=== PATIENT | male | born 1935 | race Caucasian/White ===

== ENCOUNTER 2017-07-02 14:26 | Inpatient (IN) | payer MEDICARE, OTHER ==
[~2017-07-02] VITALS: Ht 177.8 cm; Wt 108.5 kg
[~2017-07-02 14:26] MED LIST changes: -ALBU2.5V5 INH; -ALBU90OI INH; -ASMANEX220 MC1 INH; -ATOR80 PO; -Advair Hfa 115-12 GM INH; -CHOL10002 PO; -Duoneb 2.5-0.5 M3 ML INH; -ESCI10 PO; -HYDR1TAB94 PO; -INS70/30I SC; -ISOMON20 PO; -Invanz1 GM IV; -LOSA25 PO; -METO25ER PO; -NITR.4SL SL; -Ocuvite Lutein1 EACH PO; -Omeprazole20 M1 PO; -POTCHL10ER PO; -PRED10 PO; -TORSE20 PO; -TRAZ50 PO; -XARELTO15 MG PO
[2017-07-02 15:28] LABS: Hematocrit 33.1 % (37.0-53.0); Hemoglobin 10.7 g/dL (13.5-17.5); Mean Corpuscular HGB 28.2 pg (26.0-34.0); Mean Corpuscular HGB Conc 32.3 g/dL (31.5-36.5); Mean Corpuscular Volume 87 fL (80-100); Mean Platelet Volume 8.8 fL (9.1-12.4); Platelet Count 110 K/mm3 (150-400); RDW Coefficient Variation 15.2 % (11.7-14.2); RDW Standard Deviation 48.4 fL (35.1-46.3); White Blood Cell Count 3.92 K/mm3 (4.00-11.30)
[2017-07-02 15:42] LABS: International Normalized Ratio 1.18; Prothrombin Time Results 12.3 Sec (9.7-11.5)
[2017-07-02 15:50] LABS: Magnesium, Blood 2.2 mg/dL (1.6-2.4); Troponin I <0.015 ng/mL (0.000-0.040)
[2017-07-02 15:55] LABS: Alanine Aminotransfer (ALT/SGP 20 U/L (12-78); Albumin, Blood 3.7 g/dL (3.4-5.0); Albumin/Globulin Ratio 1.1 (0.8-1.8); Alk Phos 81 U/L (50-136); Anion Gap 5 mmol/L (6-16); Aspartate Aminotrans (AST/SGOT 15 U/L (12-37); Bilirubin, Total 0.8 mg/dL (0.1-1.0); Blood Urea Nitrogen 17 mg/dL (8-24); Bun/Creatinine Ratio 16.2 (12.0-20.0); CO2, Blood 31 mmol/L (21-32); Calcium, Blood 8.9 mg/dL (8.5-10.1); Chloride, Blood 103 mmol/L (98-108); Creatinine, Blood 1.05 mg/dL (0.60-1.20); Globulin, Blood 3.3 g/dL (2.2-4.0); Glomerular Filtration Rate >60 (60-); Glucose, Blood 211 mg/dL (70-99); Sodium, Blood 139 mmol/L (136-145)
[2017-07-02 16:26] LABS: BASOPHILS PERCENT MAN 0 % (0-2); EOSINOPHILS PERCENT MAN 0 % (0-6); LYMPHOCYTES % ATYPICAL MANUAL 5 % (0-0); LYMPHOCYTES ABSOLUTE MAN 0.43 K/mm3 (0.84-5.20); LYMPHOCYTES PERCENT MAN 6 % (21-46); METAMYELOCYTE ABSOLUTE MAN 0.07 K/mm3 (0.00-0.00); METAMYELOCYTE PERCENT MAN 2 % (0-0); MONOCYTES ABSOLUTE MAN 0.15 K/mm3 (0.16-1.47); MONOCYTES PERCENT MAN 4 % (4-13); NEUTROPHILS ABSOLUTE MAN 3.25 K/mm3 (1.96-9.15); SEG NEUTROPHILS PERCENT MAN 83 % (41-73); TOTAL CELLS COUNTED 100
[2017-07-02 17:31] LABS: Base Excess Venous 7.2 mmol/L; Bicarbonate Venous 29.7 mmol/L (24.0-30.0); PCO2 Venous 53.9 mmHg (38-42); PO2 Venous 47.2 mmHg (38-42); pH Blood Venous 7.39 (7.34-7.37)
[2017-07-02] MEDS ORDERED: INS70/30I (17:35)
[2017-07-02] MEDS ORDERED: ESCI10 PO (17:37)
[2017-07-02] MEDS ORDERED: MELO7.5 PO (17:37)
[2017-07-02 22:04] LABS: Troponin I <0.015 ng/mL (0.000-0.040)
[2017-07-02 22:15] LABS: U Amphetamine Screen Not Detected; U Barbituate Screen Not Detected; U Benzodiazapine Screen Not Detected; U Buprenorphine Screen Not Detected; U Cannabinoids Screen Not Detected; U Cocaine Screen Not Detected; U Methadone Screen Not Detected; U Methamphetamine Screen Not Detected; U Opiates Screen DETECTED; U Oxycodone Screen Not Detected; U Phencyclidine Screen Not Detected; U Propoxyphene Screen Not Detected
[2017-07-03 02:35] LABS: Albumin, Blood 3.4 g/dL (3.4-5.0); Anion Gap 5 mmol/L (6-16); Blood Urea Nitrogen 17 mg/dL (8-24); Bun/Creatinine Ratio 14.2 (12.0-20.0); CO2, Blood 31 mmol/L (21-32); Calcium, Blood 8.7 mg/dL (8.5-10.1); Chloride, Blood 105 mmol/L (98-108); Glomerular Filtration Rate >60 (60-); Glucose, Blood 102 mg/dL (70-99); Phosphorus, Blood 3.8 mg/dL (2.5-4.9); Potassium, Blood 3.5 mmol/L (3.5-5.5); Sodium, Blood 141 mmol/L (136-145)
[2017-07-04 06:12] LABS: BASOPHILS ABSOLUTE AUTO 0.01 K/mm3 (0.00-0.23); BASOPHILS PERCENT AUTO 0 % (0-2); EOSINOPHILS ABSOLUTE AUTO 0.05 K/mm3 (0.00-0.68); EOSINOPHILS PERCENT AUTO 1 % (0-6); Hematocrit 32.6 % (37.0-53.0); Hemoglobin 10.5 g/dL (13.5-17.5); IMMATURE GRAN ABSOLUTE AUTO 0.26 K/mm3 (0.00-0.10); IMMATURE GRAN PERCENT AUTO 6 % (0-1); LYMPHOCYTES ABSOLUTE AUTO 1.23 K/mm3 (0.84-5.20); LYMPHOCYTES PERCENT AUTO 27 % (21-46); MONOCYTES ABSOLUTE AUTO 0.53 K/mm3 (0.16-1.47); MONOCYTES PERCENT AUTO 12 % (4-13); Mean Corpuscular HGB 28.2 pg (26.0-34.0); Mean Corpuscular HGB Conc 32.2 g/dL (31.5-36.5); Mean Corpuscular Volume 88 fL (80-100); Mean Platelet Volume 9.4 fL (9.1-12.4); NEUTROPHILS ABSOLUTE AUTO 2.42 K/mm3 (1.96-9.15); NEUTROPHILS PERCENT AUTO 54 % (41-73); Platelet Count 100 K/mm3 (150-400); RDW Coefficient Variation 15.3 % (11.7-14.2); RDW Standard Deviation 48.5 fL (35.1-46.3); Red Blood Cell Count 3.72 M/mm3 (4.30-5.90)
[2017-07-04 07:22] LABS: Bun/Creatinine Ratio 15.9 (12.0-20.0); Calcium, Blood 8.8 mg/dL (8.5-10.1); Creatinine, Blood 1.45 mg/dL (0.60-1.20); Potassium, Blood 3.8 mmol/L (3.5-5.5)
[2017-07-04] MEDS ORDERED: ATOR80 PO (13:17)
[2017-07-04] MEDS ORDERED: Invanz1 GM IV (13:18)
[2017-07-04] MEDS ORDERED: ASMANEX220 MC1 INH (13:20)
[2017-07-04] MEDS ORDERED: METO25ER PO (13:21)
[2017-07-04] MEDS ORDERED: Omeprazole20 M1 PO (13:22)
[2017-07-04] MEDS ORDERED: NITR.4SL SL (13:25)
[2017-07-04] MEDS ORDERED: XARELTO15 MG PO (13:26)
[2017-07-04] MEDS ORDERED: Ocuvite Lutein1 EACH PO (13:33)
[2017-07-04] MEDS ORDERED: TRAZ50 PO (13:35)
== END 2017-07-04 16:25 | disposition home or self-care (01) | DRG 291 ==
LOC: ER 14:26 → SURS 16:46 → ICUW 16:46 → ICUE 19:05 → SURS 20:08
PROVIDERS: Emergency Medicine; Internal Medicine
DX: I11.0 Hypertensive heart disease with heart failure (principal); J96.01 Acute respiratory failure with hypoxia; J96.02 Acute respiratory failure with hypercapnia; D61.818 Other pancytopenia; N39.0 Urinary tract infection, site not specified; I50.21 Acute systolic (congestive) heart failure; J44.9 Chronic obstructive pulmonary disease, unspecified; E66.01 Morbid (severe) obesity due to excess calories; Z68.34 Body mass index [BMI] 34.0-34.9, adult; E78.5 Hyperlipidemia, unspecified; E11.40 Type 2 diabetes mellitus with diabetic neuropathy, unspecified; I25.10 Atherosclerotic heart disease of native coronary artery without angina pectoris; G47.33 Obstructive sleep apnea (adult) (pediatric); R00.1 Bradycardia, unspecified; R91.1 Solitary pulmonary nodule
CPT/HCPCS: 36415; 36569; 71045; 71260; 80048; 80053; 80069; 82607; 82746; 82803; 82947; 83690; 83735; 83880; 84443; 84484; 85025; 85379; 85610; 93005; 93010; 94010; 94640; 94664; 94667; 94760; 94762; 99285; C1751; C8923; J0696; J1650; J1815; J1940; Q9957; Q9967

== ENCOUNTER → 2017-07-02 | Outpatient (CLI) | payer MEDICARE, OTHER ==
[~2017-07-02] MED LIST: ALBU2.5V5 INH; ALBU90OI INH; ASMANEX220 MC1 INH; ASPI81CH PO; ATEN50 PO; ATOR10 PO; ATOR80 PO; Adult Low Dose81 MG PO; Advair Hfa 115-12 GM INH; BENAML20/5 PO; CHOL10002 PO; DOXA4 PO; Desyrel50 MG; Duoneb 2.5-0.5 M3 ML INH; ESCI10 PO; FURO40 PO; HYDR1TAB94 PO; Humulin 70-30 V10 ML SQ; INS70/30I SC; IRBE150 PO; ISOMON20 PO; Invanz1 GM IV; LOSA25 PO; MELO7.5 PO; METO25ER PO; MOME220I INH; MULVIT PO; Multiple Vitam1 EAC1 PO; NITR.4SL SL; Norco 7.5-3251 EACH PO; OMEP20ER PO; Ocuvite Lutein1 EACH PO; Omeprazole20 M1 PO; POTA10T PO; POTCHL10ER PO; PRED10 PO; TORSE20 PO; TRAM50 PO; TRAZ50 PO; VIT1CAPS12 PO; XARELTO15 MG PO
[2017-07-02 17:57] LABS: Bilirubin, Urine Neg (Neg); Blood, Urine Neg (Neg); Glucose Qualitative, Urine Neg (Neg); Ketones, Urine Neg (Neg); Leukocyte Esterase, Urine 2+ (Neg); Nitrite, Urine Neg (Neg); Protein, Urine Neg (Neg); Specific Gravity, Urine 1.015 (1.003-1.022); Urobilinogen, Urine 1+ (Normal); pH, Urine 6.5 (5.0-8.0)
[2017-07-02 18:34] LABS: Appearance, Urine Clear (Clear); Color, Urine Yellow (P-Yellow)
[2017-07-02 18:36] LABS: Bacteria Few /hpf; Squamous Epithelial Cells Few /hpf (Few)
== END ==
LOC: LAB 14:40 → LAB SHORT 14:40
PROVIDERS: Nurse Practitioner Family
DX: R39.11 Hesitancy of micturition (principal)
CPT/HCPCS: 81001; 87077; 87086; 87186

== ENCOUNTER 2017-07-05 00:27 | Day surgery (SDC) | payer MEDICARE, OTHER ==
[~2017-07-05 00:27] MED LIST changes: +ASMANEX220 MC1 INH; +ATOR80 PO; +ESCI10 PO; +INS70/30I; +Invanz1 GM IV; +METO25ER PO; +NITR.4SL SL; +Ocuvite Lutein1 EACH PO; +Omeprazole20 M1 PO; +TRAZ50 PO; +XARELTO15 MG PO
== END 2017-07-05 14:20 | disposition home or self-care (01) ==
LOC: ATC 00:27
DX: J96.01 Acute respiratory failure with hypoxia (principal); J96.02 Acute respiratory failure with hypercapnia; Z79.4 Long term (current) use of insulin; E66.01 Morbid (severe) obesity due to excess calories; E11.40 Type 2 diabetes mellitus with diabetic neuropathy, unspecified
CPT/HCPCS: 96374

== ENCOUNTER 2017-07-06 10:00 | Day surgery (SDC) | payer MEDICARE, OTHER | END 2017-07-06 12:00 | disposition home or self-care (01) | LOC: ATC 10:00 | DX: J96.01 Acute respiratory failure with hypoxia (principal); J96.02 Acute respiratory failure with hypercapnia; E66.01 Morbid (severe) obesity due to excess calories; E11.40 Type 2 diabetes mellitus with diabetic neuropathy, unspecified; Z79.4 Long term (current) use of insulin; Z16.12 Extended spectrum beta lactamase (ESBL) resistance | CPT/HCPCS: 96374 ==

== ENCOUNTER 2017-07-07 01:30 | Day surgery (SDC) | payer MEDICARE, OTHER | END 2017-07-07 10:23 | disposition home or self-care (01) | LOC: ATC 01:30 | DX: J96.01 Acute respiratory failure with hypoxia (principal); J96.02 Acute respiratory failure with hypercapnia; J44.9 Chronic obstructive pulmonary disease, unspecified; E11.40 Type 2 diabetes mellitus with diabetic neuropathy, unspecified; Z79.4 Long term (current) use of insulin; E66.01 Morbid (severe) obesity due to excess calories; I50.9 Heart failure, unspecified | CPT/HCPCS: J1335 ==

== ENCOUNTER 2017-07-11 00:48 | Day surgery (SDC) | payer MEDICARE, OTHER | END 2017-07-11 10:28 | disposition home or self-care (01) | LOC: ATC 00:48 | DX: J96.01 Acute respiratory failure with hypoxia (principal); J96.02 Acute respiratory failure with hypercapnia; J44.9 Chronic obstructive pulmonary disease, unspecified; I10 Essential (primary) hypertension; Z87.891 Personal history of nicotine dependence; E78.5 Hyperlipidemia, unspecified; E11.40 Type 2 diabetes mellitus with diabetic neuropathy, unspecified; Z79.4 Long term (current) use of insulin; Z16.12 Extended spectrum beta lactamase (ESBL) resistance | CPT/HCPCS: 96374; J1335 ==

== ENCOUNTER 2017-07-12 00:20 | Day surgery (SDC) | payer MEDICARE, OTHER | END 2017-07-12 14:14 | disposition home or self-care (01) | LOC: ATC 00:20 | DX: J96.01 Acute respiratory failure with hypoxia (principal); J96.02 Acute respiratory failure with hypercapnia; E11.40 Type 2 diabetes mellitus with diabetic neuropathy, unspecified; Z79.4 Long term (current) use of insulin; E66.01 Morbid (severe) obesity due to excess calories; J45.909 Unspecified asthma, uncomplicated | CPT/HCPCS: 96365; J1335 ==

== ENCOUNTER → 2017-07-18 | Outpatient (CLI) | payer MEDICARE, OTHER ==
[2017-07-18 16:46] LABS: Source, Urine Clean Catch
[2017-07-18 19:18] LABS: Creatinine, Urine Random 37.5 mg/dL (27.00-270.00); Protein, Urine Random 37.6 mg/dL (0.0-11.9)
[2017-07-18 19:26] LABS: Squamous Epithelial Cells Few /hpf (Few)
[2017-07-18 19:27] LABS: Bacteria Not Seen /hpf; White Blood Cells, Urine 0-2 /hpf (0-5)
== END | disposition home or self-care (01) ==
LOC: LAB SHORT 16:45 → OLS 16:45
PROVIDERS: Internal Medicine
DX: R80.9 Proteinuria, unspecified (principal)
CPT/HCPCS: 81015; 82570; 84156

== ENCOUNTER 2017-07-28 21:21 | Inpatient (IN) | payer MEDICARE, OTHER ==
[~2017-07-28] VITALS: Ht 180.3 cm; Wt 102.0 kg
[~2017-07-28 21:21] MED LIST changes: -INS70/30I; +INS70/30I SC
[2017-07-28 21:44] LABS: BASOPHILS ABSOLUTE AUTO 0.02 K/mm3 (0.00-0.23); BASOPHILS PERCENT AUTO 0 % (0-2); EOSINOPHILS ABSOLUTE AUTO 0.11 K/mm3 (0.00-0.68); EOSINOPHILS PERCENT AUTO 1 % (0-6); Hematocrit 37.9 % (37.0-53.0); IMMATURE GRAN ABSOLUTE AUTO 0.52 K/mm3 (0.00-0.10); IMMATURE GRAN PERCENT AUTO 6 % (0-1); LYMPHOCYTES ABSOLUTE AUTO 1.56 K/mm3 (0.84-5.20); LYMPHOCYTES PERCENT AUTO 16 % (21-46); MONOCYTES ABSOLUTE AUTO 1.02 K/mm3 (0.16-1.47); MONOCYTES PERCENT AUTO 11 % (4-13); Mean Corpuscular HGB 27.1 pg (26.0-34.0); Mean Corpuscular HGB Conc 31.7 g/dL (31.5-36.5); Mean Corpuscular Volume 86 fL (80-100); Mean Platelet Volume 9.7 fL (9.1-12.4); NEUTROPHILS ABSOLUTE AUTO 6.28 K/mm3 (1.96-9.15); NEUTROPHILS PERCENT AUTO 66 % (41-73); Platelet Count 170 K/mm3 (150-400); RDW Coefficient Variation 15.5 % (11.7-14.2); RDW Standard Deviation 47.9 fL (35.1-46.3); Red Blood Cell Count 4.42 M/mm3 (4.30-5.90); White Blood Cell Count 9.51 K/mm3 (4.00-11.30)
[2017-07-28 21:59] LABS: Alanine Aminotransfer (ALT/SGP 30 U/L (12-78); Albumin, Blood 3.7 g/dL (3.4-5.0); Albumin/Globulin Ratio 0.9 (0.8-1.8); Alk Phos 83 U/L (50-136); Anion Gap 8 mmol/L (6-16); Aspartate Aminotrans (AST/SGOT 26 U/L (12-37); Bilirubin, Total 1.1 mg/dL (0.1-1.0); Blood Urea Nitrogen 21 mg/dL (8-24); Bun/Creatinine Ratio 17.1 (12.0-20.0); CO2, Blood 30 mmol/L (21-32); Chloride, Blood 102 mmol/L (98-108); Creatinine, Blood 1.23 mg/dL (0.60-1.20); Globulin, Blood 3.9 g/dL (2.2-4.0); Glomerular Filtration Rate 60 (60-); Glucose, Blood 159 mg/dL (70-99); Potassium, Blood 4.1 mmol/L (3.5-5.5); Sodium, Blood 140 mmol/L (136-145); Total Protein, Blood 7.6 g/dL (6.4-8.2); Troponin I <0.015 ng/mL (0.000-0.040)
[2017-07-28 22:03] LABS: Bicarbonate Venous 29.6 mmol/L (24.0-30.0); PCO2 Venous 46.8 mmHg (38-42); pH Blood Venous 7.43 (7.34-7.37)
[2017-07-28] MEDS ORDERED: TORSE20 PO (22:04)
[2017-07-28] MEDS ORDERED: Advair Hfa 115-12 GM INH (22:05)
[2017-07-28] MEDS ORDERED: LOSA25 PO (22:07)
[2017-07-29] MEDS ORDERED: ISOMON20 PO (00:31)
[2017-07-29] MEDS ORDERED: POTCHL10ER PO (00:33)
[2017-07-29] MEDS ORDERED: CHOL10002 PO (00:42)
[2017-07-29] MEDS ORDERED: ALBU90OI INH (00:45)
[2017-07-29 03:46] LABS: Bun/Creatinine Ratio 18.5 (12.0-20.0); Calcium, Blood 8.6 mg/dL (8.5-10.1); Creatinine, Blood 1.24 mg/dL (0.60-1.20)
[2017-07-29] MEDS ORDERED: HYDR1TAB94 PO (15:28)
[2017-07-30 04:13] LABS: BASOPHILS ABSOLUTE AUTO 0.01 K/mm3 (0.00-0.23); BASOPHILS PERCENT AUTO 0 % (0-2); EOSINOPHILS ABSOLUTE AUTO 0.03 K/mm3 (0.00-0.68); EOSINOPHILS PERCENT AUTO 1 % (0-6); Hematocrit 31.9 % (37.0-53.0); Hemoglobin 10.2 g/dL (13.5-17.5); IMMATURE GRAN ABSOLUTE AUTO 0.02 K/mm3 (0.00-0.10); IMMATURE GRAN PERCENT AUTO 1 % (0-1); LYMPHOCYTES ABSOLUTE AUTO 0.52 K/mm3 (0.84-5.20); LYMPHOCYTES PERCENT AUTO 19 % (21-46); MONOCYTES PERCENT AUTO 19 % (4-13); Mean Corpuscular HGB 27.3 pg (26.0-34.0); Mean Corpuscular Volume 86 fL (80-100); Mean Platelet Volume 9.1 fL (9.1-12.4); NEUTROPHILS ABSOLUTE AUTO 1.62 K/mm3 (1.96-9.15); NEUTROPHILS PERCENT AUTO 60 % (41-73); Platelet Count 110 K/mm3 (150-400); RDW Coefficient Variation 15.7 % (11.7-14.2); RDW Standard Deviation 48.8 fL (35.1-46.3); Red Blood Cell Count 3.73 M/mm3 (4.30-5.90)
[2017-07-30 04:40] LABS: Alanine Aminotransfer (ALT/SGP 26 U/L (12-78); Albumin, Blood 3.3 g/dL (3.4-5.0); Alk Phos 67 U/L (50-136); Anion Gap 6 mmol/L (6-16); Aspartate Aminotrans (AST/SGOT 25 U/L (12-37); Bilirubin, Total 1.3 mg/dL (0.1-1.0); Blood Urea Nitrogen 23 mg/dL (8-24); Bun/Creatinine Ratio 20.7 (12.0-20.0); CO2, Blood 36 mmol/L (21-32); Calcium, Blood 8.3 mg/dL (8.5-10.1); Chloride, Blood 100 mmol/L (98-108); Creatinine, Blood 1.11 mg/dL (0.60-1.20); Globulin, Blood 3.3 g/dL (2.2-4.0); Glomerular Filtration Rate >60 (60-); Glucose, Blood 50 mg/dL (70-99); Potassium, Blood 3.3 mmol/L (3.5-5.5); Sodium, Blood 142 mmol/L (136-145); Total Protein, Blood 6.6 g/dL (6.4-8.2)
[2017-07-31 04:10] LABS: BASOPHILS PERCENT AUTO 0 % (0-2); EOSINOPHILS PERCENT AUTO 0 % (0-6); Hematocrit 35.3 % (37.0-53.0); Hemoglobin 10.9 g/dL (13.5-17.5); IMMATURE GRAN ABSOLUTE AUTO 0.02 K/mm3 (0.00-0.10); IMMATURE GRAN PERCENT AUTO 1 % (0-1); LYMPHOCYTES ABSOLUTE AUTO 0.22 K/mm3 (0.84-5.20); LYMPHOCYTES PERCENT AUTO 12 % (21-46); MONOCYTES ABSOLUTE AUTO 0.09 K/mm3 (0.16-1.47); MONOCYTES PERCENT AUTO 5 % (4-13); Mean Corpuscular HGB 26.7 pg (26.0-34.0); Mean Corpuscular HGB Conc 30.9 g/dL (31.5-36.5); Mean Corpuscular Volume 86 fL (80-100); Mean Platelet Volume 10.2 fL (9.1-12.4); NEUTROPHILS ABSOLUTE AUTO 1.45 K/mm3 (1.96-9.15); NEUTROPHILS PERCENT AUTO 81 % (41-73); Platelet Count 129 K/mm3 (150-400); RDW Coefficient Variation 15.4 % (11.7-14.2); RDW Standard Deviation 48.4 fL (35.1-46.3); Red Blood Cell Count 4.09 M/mm3 (4.30-5.90); White Blood Cell Count 1.78 K/mm3 (4.00-11.30)
[2017-07-31 04:30] LABS: Anion Gap 7 mmol/L (6-16); Blood Urea Nitrogen 26 mg/dL (8-24); CO2, Blood 33 mmol/L (21-32); Calcium, Blood 8.6 mg/dL (8.5-10.1); Chloride, Blood 95 mmol/L (98-108); Creatinine, Blood 1.18 mg/dL (0.60-1.20); Glomerular Filtration Rate >60 (60-); Glucose, Blood 367 mg/dL (70-99); Potassium, Blood 4.1 mmol/L (3.5-5.5); Sodium, Blood 135 mmol/L (136-145)
[2017-08-01 04:51] LABS: Hematocrit 32.1 % (37.0-53.0); Hemoglobin 10.3 g/dL (13.5-17.5); Mean Corpuscular HGB 27.3 pg (26.0-34.0); Mean Corpuscular HGB Conc 32.1 g/dL (31.5-36.5); Mean Corpuscular Volume 85 fL (80-100); Mean Platelet Volume 9.7 fL (9.1-12.4); Platelet Count 132 K/mm3 (150-400); RDW Coefficient Variation 15.3 % (11.7-14.2); RDW Standard Deviation 46.3 fL (35.1-46.3); Red Blood Cell Count 3.77 M/mm3 (4.30-5.90); White Blood Cell Count 4.71 K/mm3 (4.00-11.30)
[2017-08-01 05:10] LABS: Anion Gap 5 mmol/L (6-16); Blood Urea Nitrogen 37 mg/dL (8-24); Bun/Creatinine Ratio 32.2 (12.0-20.0); CO2, Blood 34 mmol/L (21-32); Calcium, Blood 8.7 mg/dL (8.5-10.1); Chloride, Blood 96 mmol/L (98-108); Creatinine, Blood 1.15 mg/dL (0.60-1.20); Glomerular Filtration Rate >60 (60-); Glucose, Blood 344 mg/dL (70-99); Potassium, Blood 4.3 mmol/L (3.5-5.5); Sodium, Blood 135 mmol/L (136-145)
[2017-08-01 05:15] LABS: BAND PERCENT MAN 2 % (0-8); BASOPHILS PERCENT MAN 0 % (0-2); EOSINOPHILS PERCENT MAN 0 % (0-6); LYMPHOCYTES ABSOLUTE MAN 0.47 K/mm3 (0.84-5.20); LYMPHOCYTES PERCENT MAN 10 % (21-46); MONOCYTES ABSOLUTE MAN 0.04 K/mm3 (0.16-1.47); MONOCYTES PERCENT MAN 1 % (4-13); NEUTROPHILS ABSOLUTE MAN 4.19 K/mm3 (1.96-9.15); SEG NEUTROPHILS PERCENT MAN 87 % (41-73); TOTAL CELLS COUNTED 100
[2017-08-03 05:09] LABS: BASOPHILS PERCENT AUTO 0 % (0-2); EOSINOPHILS PERCENT AUTO 0 % (0-6); Hematocrit 35.5 % (37.0-53.0); Hemoglobin 11.3 g/dL (13.5-17.5); IMMATURE GRAN ABSOLUTE AUTO 0.41 K/mm3 (0.00-0.10); IMMATURE GRAN PERCENT AUTO 7 % (0-1); LYMPHOCYTES PERCENT AUTO 7 % (21-46); MONOCYTES ABSOLUTE AUTO 0.24 K/mm3 (0.16-1.47); MONOCYTES PERCENT AUTO 4 % (4-13); Mean Corpuscular HGB 27.2 pg (26.0-34.0); Mean Corpuscular HGB Conc 31.8 g/dL (31.5-36.5); Mean Corpuscular Volume 85 fL (80-100); Mean Platelet Volume 9.3 fL (9.1-12.4); NEUTROPHILS PERCENT AUTO 82 % (41-73); Platelet Count 133 K/mm3 (150-400); RDW Coefficient Variation 15.3 % (11.7-14.2); RDW Standard Deviation 47.2 fL (35.1-46.3); Red Blood Cell Count 4.16 M/mm3 (4.30-5.90); White Blood Cell Count 5.85 K/mm3 (4.00-11.30)
[2017-08-03 05:31] LABS: Albumin, Blood 3.2 g/dL (3.4-5.0); Anion Gap 6 mmol/L (6-16); Blood Urea Nitrogen 34 mg/dL (8-24); Bun/Creatinine Ratio 30.1 (12.0-20.0); CO2, Blood 37 mmol/L (21-32); Calcium, Blood 8.7 mg/dL (8.5-10.1); Chloride, Blood 95 mmol/L (98-108); Creatinine, Blood 1.13 mg/dL (0.60-1.20); Glomerular Filtration Rate >60 (60-); Glucose, Blood 203 mg/dL (70-99); Potassium, Blood 3.9 mmol/L (3.5-5.5); Sodium, Blood 138 mmol/L (136-145)
[2017-08-03] MEDS ORDERED: ALBU2.5V5 INH (13:35)
[2017-08-03] MEDS ORDERED: Duoneb 2.5-0.5 M3 ML INH (13:50)
[2017-08-03] MEDS ORDERED: PRED10 PO (13:53)
== END 2017-08-03 15:10 | disposition home or self-care (01) | DRG 291 ==
LOC: ER 21:21 → PCU 23:35 → MEDS 07-31 15:32 → ENPENDDIS 08-03 10:43 → MEDS 08-03 15:10
PROVIDERS: Emergency Medicine; Family Medicine; Internal Medicine
PROC: 5A09357 Assistance with Respiratory Ventilation, Less than 24 Consecutive Hours, Continuous Positive Airway Pressure (ICD-10-PCS; principal; 2017-07-28)
DX: I13.0 Hypertensive heart and chronic kidney disease with heart failure and stage 1 through stage 4 chronic kidney disease, or unspecified chronic kidney disease (principal); I50.23 Acute on chronic systolic (congestive) heart failure; J96.21 Acute and chronic respiratory failure with hypoxia; J96.22 Acute and chronic respiratory failure with hypercapnia; J44.1 Chronic obstructive pulmonary disease with (acute) exacerbation; E87.1 Hypo-osmolality and hyponatremia; E11.22 Type 2 diabetes mellitus with diabetic chronic kidney disease; E11.65 Type 2 diabetes mellitus with hyperglycemia; N18.3 Chronic kidney disease, stage 3 (moderate); J40 Bronchitis, not specified as acute or chronic; I25.10 Atherosclerotic heart disease of native coronary artery without angina pectoris; I48.0 Paroxysmal atrial fibrillation; E78.5 Hyperlipidemia, unspecified; E87.6 Hypokalemia; D64.9 Anemia, unspecified; R10.11 Right upper quadrant pain; D72.819 Decreased white blood cell count, unspecified; D69.6 Thrombocytopenia, unspecified; G47.33 Obstructive sleep apnea (adult) (pediatric); I27.20 Pulmonary hypertension, unspecified; M62.81 Muscle weakness (generalized); R91.1 Solitary pulmonary nodule; E66.9 Obesity, unspecified; Z87.891 Personal history of nicotine dependence; Z88.1 Allergy status to other antibiotic agents; Z88.0 Allergy status to penicillin; Z57.2 Occupational exposure to dust; Z68.30 Body mass index [BMI] 30.0-30.9, adult; Z79.01 Long term (current) use of anticoagulants; Z79.4 Long term (current) use of insulin; Z79.51 Long term (current) use of inhaled steroids; Z79.899 Other long term (current) drug therapy
CPT/HCPCS: 36415; 51703; 71045; 71046; 76705; 80048; 80053; 80069; 82803; 82947; 83036; 83880; 84484; 85007; 85025; 85027; 93005; 93010; 94640; 94660; 94762; 97116; 97162; 97166; 97530; 97535; 99285; G8978; G8979; G8987; G8988; G8989; J0456; J1650; J1815; J1940; J2930; J7050

== ENCOUNTER 2017-10-30 00:31 | Inpatient (IN) | payer MEDICARE, OTHER ==
[~2017-10-30] VITALS: Ht 180.3 cm; Wt 99.6 kg
[~2017-10-30 00:31] MED LIST changes: +ALBU2.5V5 INH; +ALBU90OI INH; +Advair Hfa 115-12 GM INH; +CHOL10002 PO; +Duoneb 2.5-0.5 M3 ML INH; +HYDR1TAB94 PO; +ISOMON20 PO; +LOSA25 PO; +POTCHL20ER PO; +PRED10 PO; +TORSE20 PO
[2017-10-30] MEDS ORDERED: ASPI81CH PO ×2 (00:55)
[2017-10-30 00:59] LABS: BASOPHILS ABSOLUTE AUTO 0.01 K/mm3 (0.00-0.23); BASOPHILS PERCENT AUTO 0 % (0-2); EOSINOPHILS ABSOLUTE AUTO 0.04 K/mm3 (0.00-0.68); EOSINOPHILS PERCENT AUTO 1 % (0-6); Hematocrit 32.4 % (37.0-53.0); Hemoglobin 10.4 g/dL (13.5-17.5); IMMATURE GRAN ABSOLUTE AUTO 0.14 K/mm3 (0.00-0.10); IMMATURE GRAN PERCENT AUTO 2 % (0-1); LYMPHOCYTES PERCENT AUTO 19 % (21-46); MONOCYTES ABSOLUTE AUTO 0.54 K/mm3 (0.16-1.47); MONOCYTES PERCENT AUTO 9 % (4-13); Mean Corpuscular HGB 27.2 pg (26.0-34.0); Mean Corpuscular HGB Conc 32.1 g/dL (31.5-36.5); Mean Corpuscular Volume 85 fL (80-100); Mean Platelet Volume 9.4 fL (9.1-12.4); NEUTROPHILS ABSOLUTE AUTO 4.26 K/mm3 (1.96-9.15); NEUTROPHILS PERCENT AUTO 69 % (41-73); Platelet Count 108 K/mm3 (150-400); RDW Coefficient Variation 15.3 % (11.7-14.2); RDW Standard Deviation 46.5 fL (35.1-46.3); Red Blood Cell Count 3.82 M/mm3 (4.30-5.90); White Blood Cell Count 6.19 K/mm3 (4.00-11.30)
[2017-10-30 01:14] LABS: Alanine Aminotransfer (ALT/SGP 52 U/L (12-78); Albumin, Blood 3.7 g/dL (3.4-5.0); Albumin/Globulin Ratio 1.2 (0.8-1.8); Alk Phos 78 U/L (50-136); Anion Gap 8 mmol/L (6-16); Aspartate Aminotrans (AST/SGOT 36 U/L (12-37); Bilirubin, Total 0.5 mg/dL (0.1-1.0); Blood Urea Nitrogen 24 mg/dL (8-24); Bun/Creatinine Ratio 16.4 (12.0-20.0); CO2, Blood 30 mmol/L (21-32); Calcium, Blood 8.5 mg/dL (8.5-10.1); Chloride, Blood 103 mmol/L (98-108); Creatinine, Blood 1.46 mg/dL (0.60-1.20); Globulin, Blood 3.1 g/dL (2.2-4.0); Glomerular Filtration Rate 49 (60-); Glucose, Blood 242 mg/dL (70-99); Potassium, Blood 3.9 mmol/L (3.5-5.5); Sodium, Blood 141 mmol/L (136-145); Total Protein, Blood 6.8 g/dL (6.4-8.2); Troponin I <0.015 ng/mL (0.000-0.040)
[2017-10-30] MEDS ORDERED: STOOL SOFTENER1 EAC1 PO ×2 (04:48)
[2017-10-30] MEDS ORDERED: POLY500 PO ×2 (04:48)
[2017-10-30] MEDS ORDERED: Vision Vitamin1 EACH PO ×2 (04:49)
[2017-10-30] MEDS ORDERED: Advair Hfa 230-12 GM INH ×2 (04:50)
[2017-10-30] MEDS ORDERED: CENTRUM SILVER1 EAC2 PO ×2 (04:50)
[2017-10-30] MEDS ORDERED: Nitrostat0.3 MG SL ×2 (04:57)
[2017-10-30] MEDS ORDERED: HYDR1TAB94 PO ×2 (04:58)
[2017-10-30 07:27] LABS: Bun/Creatinine Ratio 16.7 (12.0-20.0); Calcium, Blood 8.5 mg/dL (8.5-10.1); Creatinine, Blood 1.32 mg/dL (0.60-1.20); Potassium, Blood 3.6 mmol/L (3.5-5.5)
[2017-10-31 03:58] LABS: BASOPHILS ABSOLUTE AUTO 0.01 K/mm3 (0.00-0.23); BASOPHILS PERCENT AUTO 0 % (0-2); EOSINOPHILS ABSOLUTE AUTO 0.06 K/mm3 (0.00-0.68); EOSINOPHILS PERCENT AUTO 1 % (0-6); Hematocrit 30.3 % (37.0-53.0); IMMATURE GRAN ABSOLUTE AUTO 0.09 K/mm3 (0.00-0.10); IMMATURE GRAN PERCENT AUTO 2 % (0-1); LYMPHOCYTES ABSOLUTE AUTO 1.85 K/mm3 (0.84-5.20); LYMPHOCYTES PERCENT AUTO 34 % (21-46); MONOCYTES ABSOLUTE AUTO 0.66 K/mm3 (0.16-1.47); MONOCYTES PERCENT AUTO 12 % (4-13); Mean Corpuscular HGB 27.9 pg (26.0-34.0); Mean Corpuscular Volume 85 fL (80-100); Mean Platelet Volume 9.4 fL (9.1-12.4); NEUTROPHILS PERCENT AUTO 51 % (41-73); Platelet Count 105 K/mm3 (150-400); RDW Coefficient Variation 15.6 % (11.7-14.2); RDW Standard Deviation 47.8 fL (35.1-46.3); Red Blood Cell Count 3.58 M/mm3 (4.30-5.90); White Blood Cell Count 5.47 K/mm3 (4.00-11.30)
[2017-10-31 04:20] LABS: Bun/Creatinine Ratio 17.7 (12.0-20.0); Calcium, Blood 8.4 mg/dL (8.5-10.1); Creatinine, Blood 1.3 mg/dL (0.60-1.20); Potassium, Blood 3.4 mmol/L (3.5-5.5)
== END 2017-10-31 13:00 | disposition home or self-care (01) | DRG 291 ==
LOC: ER 00:31 → PCU 02:25
PROVIDERS: Emergency Medicine; Internal Medicine
DX: I13.0 Hypertensive heart and chronic kidney disease with heart failure and stage 1 through stage 4 chronic kidney disease, or unspecified chronic kidney disease (principal); I50.41 Acute combined systolic (congestive) and diastolic (congestive) heart failure; N17.9 Acute kidney failure, unspecified; J44.9 Chronic obstructive pulmonary disease, unspecified; N18.3 Chronic kidney disease, stage 3 (moderate); E11.22 Type 2 diabetes mellitus with diabetic chronic kidney disease; I27.20 Pulmonary hypertension, unspecified; G47.33 Obstructive sleep apnea (adult) (pediatric); D69.6 Thrombocytopenia, unspecified; D63.8 Anemia in other chronic diseases classified elsewhere; E87.6 Hypokalemia; E78.5 Hyperlipidemia, unspecified; I25.10 Atherosclerotic heart disease of native coronary artery without angina pectoris; I48.0 Paroxysmal atrial fibrillation; E11.649 Type 2 diabetes mellitus with hypoglycemia without coma; E66.9 Obesity, unspecified; Z68.31 Body mass index [BMI] 31.0-31.9, adult
CPT/HCPCS: 36415; 71046; 80048; 80053; 82947; 83880; 84484; 85025; 87081; 93005; 93010; 94640; 94762; 96374; 97110; 97161; 99285-25; G8978; G8979; J1815; J1940; J3010

== ENCOUNTER 2017-11-09 11:47 | Emergency (ER) | payer MEDICARE, OTHER ==
[~2017-11-09] VITALS: Ht 172.7 cm; Wt 102.1 kg
[~2017-11-09 11:47] MED LIST changes: +Advair Hfa 230-12 GM INH; +CENTRUM SILVER1 EAC2 PO; +Nitrostat0.3 MG SL; +POLY500 PO; +STOOL SOFTENER1 EAC1 PO; +Vision Vitamin1 EACH PO
[2017-11-09 12:52] LABS: Hematocrit 29.4 % (37.0-53.0); Hemoglobin 9.5 g/dL (13.5-17.5); Mean Corpuscular HGB 27.6 pg (26.0-34.0); Mean Corpuscular HGB Conc 32.3 g/dL (31.5-36.5); Mean Corpuscular Volume 86 fL (80-100); Mean Platelet Volume 9.3 fL (9.1-12.4); Platelet Count 140 K/mm3 (150-400); RDW Coefficient Variation 15.7 % (11.7-14.2); RDW Standard Deviation 48.3 fL (35.1-46.3); Red Blood Cell Count 3.44 M/mm3 (4.30-5.90); White Blood Cell Count 4.55 K/mm3 (4.00-11.30)
[2017-11-09 13:04] LABS: International Normalized Ratio 1.45; Prothrombin Time Results 14.6 Sec (9.7-11.5)
[2017-11-09 13:11] LABS: Alanine Aminotransfer (ALT/SGP 56 U/L (12-78); Albumin, Blood 3.3 g/dL (3.4-5.0); Alk Phos 88 U/L (50-136); Anion Gap 7 mmol/L (6-16); Aspartate Aminotrans (AST/SGOT 46 U/L (12-37); Bilirubin, Total 0.8 mg/dL (0.1-1.0); Blood Urea Nitrogen 20 mg/dL (8-24); CO2, Blood 32 mmol/L (21-32); Calcium, Blood 8.5 mg/dL (8.5-10.1); Chloride, Blood 101 mmol/L (98-108); Creatinine, Blood 1.25 mg/dL (0.60-1.20); Globulin, Blood 3.4 g/dL (2.2-4.0); Glomerular Filtration Rate 59 (60-); Glucose, Blood 232 mg/dL (70-99); Potassium, Blood 3.7 mmol/L (3.5-5.5); Sodium, Blood 140 mmol/L (136-145); Total Protein, Blood 6.7 g/dL (6.4-8.2); Troponin I <0.015 ng/mL (0.000-0.040)
[2017-11-09 13:20] LABS: BASOPHILS PERCENT MAN 0 % (0-2); EOSINOPHILS ABSOLUTE MAN 0.04 K/mm3 (0.00-0.68); EOSINOPHILS PERCENT MAN 1 % (0-6); LYMPHOCYTES ABSOLUTE MAN 0.63 K/mm3 (0.84-5.20); LYMPHOCYTES PERCENT MAN 14 % (21-46); MONOCYTES ABSOLUTE MAN 0.31 K/mm3 (0.16-1.47); MONOCYTES PERCENT MAN 7 % (4-13); NEUTROPHILS ABSOLUTE MAN 3.54 K/mm3 (1.96-9.15); SEG NEUTROPHILS PERCENT MAN 78 % (41-73); TOTAL CELLS COUNTED 100
[2017-11-09 16:02] LABS: Source, Urine Clean Catch
[2017-11-09 16:09] LABS: Appearance, Urine Clear (Clear); Bilirubin, Urine Neg (Neg); Blood, Urine Neg (Neg); Color, Urine Yellow (P-Yellow); Glucose Qualitative, Urine Neg (Neg); Ketones, Urine Neg (Neg); Leukocyte Esterase, Urine Neg (Neg); Nitrite, Urine Neg (Neg); Protein, Urine Neg (Neg); Urobilinogen, Urine NORM (Normal)
[2017-11-09] MEDS ORDERED: TORSE20 PO (16:14)
[2017-11-10] MEDS ORDERED: NOVOLIN 70100 UNIT/1 SC (07:06)
[2017-11-10] MEDS ORDERED: ALBU90OI6 INH (11:07)
[2017-11-10] MEDS ORDERED: DULERA 100 MCG/13 GM INH (11:09)
== END 2017-11-09 16:33 | disposition home or self-care (01) ==
LOC: ER 11:47
PROVIDERS: Emergency Medicine
DX: I11.0 Hypertensive heart disease with heart failure (principal); I50.9 Heart failure, unspecified; I48.91 Unspecified atrial fibrillation; J44.9 Chronic obstructive pulmonary disease, unspecified; E11.9 Type 2 diabetes mellitus without complications; Z88.1 Allergy status to other antibiotic agents; Z88.0 Allergy status to penicillin; Z88.8 Allergy status to other drugs, medicaments and biological substances; Z79.899 Other long term (current) drug therapy; Z79.82 Long term (current) use of aspirin; Z79.4 Long term (current) use of insulin; Z79.51 Long term (current) use of inhaled steroids; Z87.891 Personal history of nicotine dependence
CPT/HCPCS: 36415; 71046; 80053; 81003; 83880; 84484; 85025; 85610; 85730; 93005; 93010; 96374; 99285-25; J1940

== ENCOUNTER 2017-11-10 06:44 | Inpatient (IN) | payer MEDICARE, OTHER ==
[~2017-11-10] VITALS: Ht 180.3 cm; Wt 99.8 kg
[2017-11-10] MEDS ORDERED: NOVOLIN 70100 UNIT/1 SC (07:06)
[2017-11-10 07:17] LABS: BASOPHILS ABSOLUTE AUTO 0.02 K/mm3 (0.00-0.23); BASOPHILS PERCENT AUTO 0 % (0-2); EOSINOPHILS ABSOLUTE AUTO 0.04 K/mm3 (0.00-0.68); EOSINOPHILS PERCENT AUTO 1 % (0-6); Hemoglobin 9.6 g/dL (13.5-17.5); IMMATURE GRAN ABSOLUTE AUTO 0.37 K/mm3 (0.00-0.10); IMMATURE GRAN PERCENT AUTO 7 % (0-1); LYMPHOCYTES ABSOLUTE AUTO 1.22 K/mm3 (0.84-5.20); LYMPHOCYTES PERCENT AUTO 21 % (21-46); MONOCYTES PERCENT AUTO 11 % (4-13); Mean Corpuscular HGB 27.3 pg (26.0-34.0); Mean Corpuscular Volume 85 fL (80-100); Mean Platelet Volume 8.9 fL (9.1-12.4); NEUTROPHILS ABSOLUTE AUTO 3.46 K/mm3 (1.96-9.15); NEUTROPHILS PERCENT AUTO 61 % (41-73); Platelet Count 141 K/mm3 (150-400); RDW Coefficient Variation 15.7 % (11.7-14.2); RDW Standard Deviation 48.1 fL (35.1-46.3); Red Blood Cell Count 3.52 M/mm3 (4.30-5.90); White Blood Cell Count 5.71 K/mm3 (4.00-11.30)
[2017-11-10 07:38] LABS: Anion Gap 7 mmol/L (6-16); Blood Urea Nitrogen 20 mg/dL (8-24); Bun/Creatinine Ratio 14.7 (12.0-20.0); CO2, Blood 33 mmol/L (21-32); Calcium, Blood 8.7 mg/dL (8.5-10.1); Chloride, Blood 101 mmol/L (98-108); Creatinine, Blood 1.36 mg/dL (0.60-1.20); Glomerular Filtration Rate 53 (60-); Glucose, Blood 75 mg/dL (70-99); Magnesium, Blood 1.9 mg/dL (1.6-2.4); Potassium, Blood 3.4 mmol/L (3.5-5.5); Sodium, Blood 141 mmol/L (136-145); Troponin I <0.015 ng/mL (0.000-0.040)
[2017-11-10] MEDS ORDERED: ALBU90OI6 INH (11:07)
[2017-11-10] MEDS ORDERED: DULERA 100 MCG/13 GM INH (11:09)
[2017-11-10 15:43] LABS: CPK Creatine Kinase 66 U/L (39-308); Creatine Kinase MB 5.1 ng/mL (0.0-3.6); Creatine Kinase MB Index 7.7 (0.0-4.0); Troponin I <0.015 ng/mL (0.000-0.040)
[2017-11-10 23:58] LABS: CPK Creatine Kinase 68 U/L (39-308); Creatine Kinase MB 4.8 ng/mL (0.0-3.6); Creatine Kinase MB Index 7.1 (0.0-4.0); Troponin I <0.015 ng/mL (0.000-0.040)
[2017-11-11 05:30] LABS: Hematocrit 31.8 % (37.0-53.0); Hemoglobin 10.3 g/dL (13.5-17.5); Mean Corpuscular HGB 27.5 pg (26.0-34.0); Mean Corpuscular HGB Conc 32.4 g/dL (31.5-36.5); Mean Corpuscular Volume 85 fL (80-100); Platelet Count 154 K/mm3 (150-400); RDW Coefficient Variation 15.7 % (11.7-14.2); RDW Standard Deviation 47.8 fL (35.1-46.3); Red Blood Cell Count 3.75 M/mm3 (4.30-5.90); White Blood Cell Count 5.67 K/mm3 (4.00-11.30)
[2017-11-11 05:50] LABS: Percent Saturation 14.6 % (20.0-50.0)
[2017-11-11 05:52] LABS: Calcium, Blood 9.1 mg/dL (8.5-10.1); Creatinine, Blood 1.29 mg/dL (0.60-1.20); Potassium, Blood 3.6 mmol/L (3.5-5.5)
[2017-11-12 05:51] LABS: Albumin, Blood 3.4 g/dL (3.4-5.0); Anion Gap 6 mmol/L (6-16); Blood Urea Nitrogen 19 mg/dL (8-24); Bun/Creatinine Ratio 15.3 (12.0-20.0); CO2, Blood 35 mmol/L (21-32); Calcium, Blood 9.1 mg/dL (8.5-10.1); Chloride, Blood 96 mmol/L (98-108); Creatinine, Blood 1.24 mg/dL (0.60-1.20); Glomerular Filtration Rate 59 (60-); Glucose, Blood 244 mg/dL (70-99); Phosphorus, Blood 3.4 mg/dL (2.5-4.9); Potassium, Blood 3.7 mmol/L (3.5-5.5); Sodium, Blood 137 mmol/L (136-145)
[2017-11-12 12:16] LABS: Source, Urine Clean Catch
[2017-11-12 12:20] LABS: Bilirubin, Urine Neg (Neg); Blood, Urine Neg (Neg); Glucose Qualitative, Urine 3+ (Neg); Ketones, Urine Neg (Neg); Leukocyte Esterase, Urine Neg (Neg); Nitrite, Urine Neg (Neg); Protein, Urine 2+ (Neg); Specific Gravity, Urine 1.005 (1.003-1.022); Urobilinogen, Urine NORM (Normal)
[2017-11-12 13:06] LABS: Appearance, Urine Clear (Clear); Bacteria Not Seen /hpf; Color, Urine Yellow (P-Yellow); Mucus Light (0-Heavy); Red Blood Cells, Urine 0-2 /hpf (0-2); Squamous Epithelial Cells Few /hpf (Few); White Blood Cells, Urine 0-2 /hpf (0-5)
[2017-11-13 09:28] LABS: Albumin, Blood 3.5 g/dL (3.4-5.0); Anion Gap 9 mmol/L (6-16); Blood Urea Nitrogen 19 mg/dL (8-24); Bun/Creatinine Ratio 16.7 (12.0-20.0); CO2, Blood 33 mmol/L (21-32); Calcium, Blood 8.9 mg/dL (8.5-10.1); Chloride, Blood 94 mmol/L (98-108); Creatinine, Blood 1.14 mg/dL (0.60-1.20); Glomerular Filtration Rate >60 (60-); Glucose, Blood 269 mg/dL (70-99); Phosphorus, Blood 2.9 mg/dL (2.5-4.9); Potassium, Blood 3.3 mmol/L (3.5-5.5); Sodium, Blood 136 mmol/L (136-145)
[2017-11-13] MEDS ORDERED: TORSE20 PO (14:12)
[2017-11-13] MEDS ORDERED: Ferrous Sulfat325 M2 PO (14:14)
== END 2017-11-13 14:36 | disposition home or self-care (01) | DRG 291 ==
LOC: ER 06:44 → MEDS 09:26 → ENPENDDIS 11-13 10:30 → MEDS 11-13 14:36
PROVIDERS: Emergency Medicine; Internal Medicine
DX: I13.0 Hypertensive heart and chronic kidney disease with heart failure and stage 1 through stage 4 chronic kidney disease, or unspecified chronic kidney disease (principal); J96.21 Acute and chronic respiratory failure with hypoxia; I50.43 Acute on chronic combined systolic (congestive) and diastolic (congestive) heart failure; N18.3 Chronic kidney disease, stage 3 (moderate); E11.22 Type 2 diabetes mellitus with diabetic chronic kidney disease; G47.33 Obstructive sleep apnea (adult) (pediatric); I48.2 Chronic atrial fibrillation; E87.6 Hypokalemia; I25.10 Atherosclerotic heart disease of native coronary artery without angina pectoris; J44.9 Chronic obstructive pulmonary disease, unspecified; F32.9 Major depressive disorder, single episode, unspecified; K21.9 Gastro-esophageal reflux disease without esophagitis; D63.8 Anemia in other chronic diseases classified elsewhere; D69.6 Thrombocytopenia, unspecified; I27.20 Pulmonary hypertension, unspecified; I08.0 Rheumatic disorders of both mitral and aortic valves; E66.01 Morbid (severe) obesity due to excess calories; Z68.30 Body mass index [BMI] 30.0-30.9, adult
CPT/HCPCS: 36415; 71045; 80048; 80069; 81001; 82550; 82553; 82728; 82947; 83036; 83540; 83550; 83735; 83880; 84145; 84443; 84484; 85025; 85027; 87015; 87045; 87046; 87899; 93005; 93010; 93306; 94640; 94762; 96374; 97110; 97116; 97162; 99285-25; G8978; G8979; J1940

== ENCOUNTER → 2018-03-13 | Outpatient (CLI) | payer MEDICARE, OTHER ==
[~2018-03-13] MED LIST changes: +ALBU90OI6 INH; +DULERA 100 MCG/13 GM INH; +Ferrous Sulfat325 M2 PO; +NOVOLIN 70100 UNIT/1 SC
== END | disposition home or self-care (01) ==
LOC: LAB 12:34 → LAB SHORT 12:34
DX: L08.9 Local infection of the skin and subcutaneous tissue, unspecified (principal)
CPT/HCPCS: 87070; 87077; 87147; 87186; 87205

== ENCOUNTER 2018-03-15 00:17 | Day surgery (SDC) | payer MEDICARE, OTHER | END 2018-03-15 22:49 | disposition home or self-care (01) | LOC: WOUND 00:17 | PROC: 0JBJ0ZZ Excision of Right Hand Subcutaneous Tissue and Fascia, Open Approach (ICD-10-PCS; principal; 2018-03-15) | DX: S61.401D Unspecified open wound of right hand, subsequent encounter (principal); L03.113 Cellulitis of right upper limb; E11.42 Type 2 diabetes mellitus with diabetic polyneuropathy; I10 Essential (primary) hypertension | CPT/HCPCS: 73130; 82947; G0463 ==

== ENCOUNTER 2018-03-18 00:15 | Day surgery (SDC) | payer MEDICARE, OTHER | END 2018-03-18 22:44 | disposition home or self-care (01) | LOC: WOUND 00:15 | DX: S61.401D Unspecified open wound of right hand, subsequent encounter (principal); L03.113 Cellulitis of right upper limb; E11.42 Type 2 diabetes mellitus with diabetic polyneuropathy; I10 Essential (primary) hypertension | CPT/HCPCS: G0463 ==

== ENCOUNTER 2018-03-21 11:20 | Day surgery (SDC) | payer MEDICARE, OTHER | END 2018-03-21 23:00 | disposition home or self-care (01) | LOC: WOUND 11:20 | DX: S61.401D Unspecified open wound of right hand, subsequent encounter (principal); L03.113 Cellulitis of right upper limb; E11.40 Type 2 diabetes mellitus with diabetic neuropathy, unspecified; M19.90 Unspecified osteoarthritis, unspecified site | CPT/HCPCS: G0463 ==

== ENCOUNTER 2018-03-25 15:00 | Day surgery (SDC) | payer MEDICARE, OTHER | END 2018-03-25 22:38 | disposition home or self-care (01) | LOC: WOUND 15:00 | DX: S61.401D Unspecified open wound of right hand, subsequent encounter (principal); L03.113 Cellulitis of right upper limb | CPT/HCPCS: G0463 ==

== ENCOUNTER 2018-03-27 12:25 | Day surgery (SDC) | payer MEDICARE, OTHER | END 2018-03-27 22:43 | disposition home or self-care (01) | LOC: WOUND 12:25 | DX: S61.401D Unspecified open wound of right hand, subsequent encounter (principal); L03.113 Cellulitis of right upper limb; E11.42 Type 2 diabetes mellitus with diabetic polyneuropathy; I10 Essential (primary) hypertension | CPT/HCPCS: G0463 ==

== ENCOUNTER 2018-04-03 15:15 | Day surgery (SDC) | payer MEDICARE, OTHER | END 2018-04-03 22:39 | disposition home or self-care (01) | LOC: WOUND 15:15 | DX: S61.401D Unspecified open wound of right hand, subsequent encounter (principal); L03.113 Cellulitis of right upper limb; E11.42 Type 2 diabetes mellitus with diabetic polyneuropathy; I10 Essential (primary) hypertension | CPT/HCPCS: G0463 ==

== ENCOUNTER 2018-04-09 00:52 | Day surgery (SDC) | payer MEDICARE, OTHER | END 2018-04-09 22:37 | disposition home or self-care (01) | LOC: WOUND 00:52 | DX: S61.401D Unspecified open wound of right hand, subsequent encounter (principal); L03.113 Cellulitis of right upper limb; E11.42 Type 2 diabetes mellitus with diabetic polyneuropathy; I10 Essential (primary) hypertension; M19.90 Unspecified osteoarthritis, unspecified site | CPT/HCPCS: 87070; 87075; 87205 ==

== ENCOUNTER 2018-04-16 00:15 | Day surgery (SDC) | payer MEDICARE, OTHER | END 2018-04-16 23:01 | disposition home or self-care (01) | LOC: WOUND 00:15 | DX: S61.401D Unspecified open wound of right hand, subsequent encounter (principal); E11.42 Type 2 diabetes mellitus with diabetic polyneuropathy; I10 Essential (primary) hypertension; Z79.4 Long term (current) use of insulin; Z79.01 Long term (current) use of anticoagulants | CPT/HCPCS: G0463 ==

== ENCOUNTER 2018-04-19 15:06 | Day surgery (SDC) | payer MEDICARE, OTHER | END 2018-04-19 23:09 | disposition home or self-care (01) | LOC: WOUND 15:06 | DX: S61.401D Unspecified open wound of right hand, subsequent encounter (principal); L03.113 Cellulitis of right upper limb; E11.40 Type 2 diabetes mellitus with diabetic neuropathy, unspecified; M19.90 Unspecified osteoarthritis, unspecified site; I10 Essential (primary) hypertension; Z79.4 Long term (current) use of insulin | CPT/HCPCS: G0463 ==

== ENCOUNTER 2018-07-25 13:06 | Inpatient (IN) | payer MEDICARE, OTHER ==
[~2018-07-25] VITALS: Ht 180.3 cm; Wt 102.7 kg
[~2018-07-25 13:06] MED LIST changes: +Accuneb0.63 MG/3 NEB; +Aspirin EC81 MG PO; +CEFU500T30 PO; +DOCU100 PO; +DULERA 200 MCG/13 GM INH; +ENTRESTO 24 MG1 EACH PO; +GUAI600T33 PO; +K-TAB ER20 MEQ PO; +OMEPRAZOLE MAGN20 MG PO; +Ropinirole HCl1 MG PO; +SACC250C PO; +SPIR25 PO; +TRAZ100 PO; +Toprol Xl50 MG PO; +VITAMIN C125 MG PO; +XARELTO20 MG PO
[2018-07-25 14:00] LABS: BASOPHILS ABSOLUTE AUTO 0.01 K/mm3 (0.00-0.23); BASOPHILS PERCENT AUTO 0 % (0-2); EOSINOPHILS ABSOLUTE AUTO 0.04 K/mm3 (0.00-0.68); EOSINOPHILS PERCENT AUTO 1 % (0-6); Hematocrit 29.8 % (37.0-53.0); Hemoglobin 9.3 g/dL (13.5-17.5); IMMATURE GRAN ABSOLUTE AUTO 0.25 K/mm3 (0.00-0.10); IMMATURE GRAN PERCENT AUTO 5 % (0-1); LYMPHOCYTES PERCENT AUTO 13 % (21-46); MONOCYTES ABSOLUTE AUTO 0.58 K/mm3 (0.16-1.47); MONOCYTES PERCENT AUTO 11 % (4-13); Mean Corpuscular HGB 29.9 pg (26.0-34.0); Mean Corpuscular HGB Conc 31.2 g/dL (31.5-36.5); Mean Corpuscular Volume 96 fL (80-100); Mean Platelet Volume 8.8 fL (9.1-12.4); NEUTROPHILS ABSOLUTE AUTO 3.63 K/mm3 (1.96-9.15); NEUTROPHILS PERCENT AUTO 70 % (41-73); Platelet Count 132 K/mm3 (150-400); RDW Coefficient Variation 17.6 % (11.7-14.2); RDW Standard Deviation 60.9 fL (35.1-46.3); Red Blood Cell Count 3.11 M/mm3 (4.30-5.90); White Blood Cell Count 5.21 K/mm3 (4.00-11.30)
[2018-07-25 14:03] LABS: Alanine Aminotransfer (ALT/SGP 19 U/L (12-78); Albumin, Blood 3.4 g/dL (3.4-5.0); Albumin/Globulin Ratio 1.1 (0.8-1.8); Alk Phos 85 U/L (50-136); Anion Gap 5 mmol/L (6-16); Aspartate Aminotrans (AST/SGOT 15 U/L (12-37); Bilirubin, Total 0.6 mg/dL (0.1-1.0); Blood Urea Nitrogen 28 mg/dL (8-24); Bun/Creatinine Ratio 23.5 (12.0-20.0); CO2, Blood 35 mmol/L (21-32); Calcium, Blood 8.7 mg/dL (8.5-10.1); Chloride, Blood 100 mmol/L (98-108); Creatinine, Blood 1.19 mg/dL (0.60-1.20); Globulin, Blood 3.2 g/dL (2.2-4.0); Glomerular Filtration Rate >60 (60-); Glucose, Blood 194 mg/dL (70-99); Potassium, Blood 3.8 mmol/L (3.5-5.5); Sodium, Blood 140 mmol/L (136-145); Total Protein, Blood 6.6 g/dL (6.4-8.2); Troponin I <0.015 ng/mL (0.000-0.040)
[2018-07-25 14:55] LABS: PCO2 Arterial 48 mmHg (35-45); PO2 Arterial 51 mmHg (80-100); pH Blood Arterial 7.46 (7.35-7.45)
[2018-07-25] MEDS ORDERED: ROSU5 PO (15:25)
[2018-07-25] MEDS ORDERED: HYDR1TAB94 PO (15:48)
--- NOTE | 2018-07-26 02:05 | NUR ---
BLOOD SUGARS ON BEDTIME BLOOD SUGAR CHECKS, THE PT'S BLOOD SUGAR WAS 437. PER THE PT'S , THE PT'S BLOOD SUGARS TEND TO SPIKE WHEN HE IS RECEIVING STEROIDS. THE PT WAS ON A LOW SLIDING SCALE OF COVRAGE SHORT-ACTING INSULIN, THE HOSPITALIST JODI ENGEL WAS CONSULTED. HIS HUMULIN WAS INCREASED TO A MEDIUM SLIDING SCALE, AND THE PT WAS COVERED WITH 12 UNITS HUMULIN, AND 38 OF HUMULIN 70/30. PER MAREN, HIS BLOOD SUGAR WAS RECHECKED APPROXIMATELY 3 HOURS LATER, AT 0000, AT WHICH TIME HIS BLOOD SUGAR WAS 440. THE HOSPITALIST DR ARRIAZA WAS CALLED AT 0040. HE INCREASED THE PT'S SLIDING SCALE TO A HIGH SLIDING SCALE, AND ORDERED COVERAGE FOR NOW, AND TP RECHECK 3 HOURS AFTER COVERAGE WAS GIVEN.
[2018-07-26 02:10] LABS: BASOPHILS PERCENT AUTO 0 % (0-2); EOSINOPHILS PERCENT AUTO 0 % (0-6); Hematocrit 26.7 % (37.0-53.0); Hemoglobin 8.6 g/dL (13.5-17.5); IMMATURE GRAN ABSOLUTE AUTO 0.05 K/mm3 (0.00-0.10); IMMATURE GRAN PERCENT AUTO 1 % (0-1); LYMPHOCYTES PERCENT AUTO 4 % (21-46); MONOCYTES PERCENT AUTO 2 % (4-13); Mean Corpuscular HGB 30.4 pg (26.0-34.0); Mean Corpuscular HGB Conc 32.2 g/dL (31.5-36.5); Mean Corpuscular Volume 94 fL (80-100); NEUTROPHILS ABSOLUTE AUTO 4.32 K/mm3 (1.96-9.15); NEUTROPHILS PERCENT AUTO 93 % (41-73); Platelet Count 121 K/mm3 (150-400); RDW Coefficient Variation 17.4 % (11.7-14.2); RDW Standard Deviation 60.1 fL (35.1-46.3); Red Blood Cell Count 2.83 M/mm3 (4.30-5.90); White Blood Cell Count 4.67 K/mm3 (4.00-11.30)
[2018-07-26 02:29] LABS: Anion Gap 9 mmol/L (6-16); Blood Urea Nitrogen 33 mg/dL (8-24); Bun/Creatinine Ratio 27.7 (12.0-20.0); CO2, Blood 31 mmol/L (21-32); Calcium, Blood 8.3 mg/dL (8.5-10.1); Chloride, Blood 95 mmol/L (98-108); Creatinine, Blood 1.19 mg/dL (0.60-1.20); Glomerular Filtration Rate >60 (60-); Glucose, Blood 425 mg/dL (70-99); Potassium, Blood 3.7 mmol/L (3.5-5.5); Sodium, Blood 135 mmol/L (136-145)
[2018-07-26 05:10] LABS: Adenovirus Not Detected (NOT DETECT); Bordetella pertussis Not Detected (NOT DETECT); Chlamydophila pneumoniae Not Detected (NOT DETECT); Coronavirus 229E Not Detected (NOT DETECT); Coronavirus HKU1 Not Detected (NOT DETECT); Coronavirus NL63 Not Detected (NOT DETECT); Coronavirus OC43 Not Detected (NOT DETECT); Human Metapneumovirus Not Detected (NOT DETECT); Human Rhinovirus/Enterovirus Not Detected (NOT DETECT); Influenza A Not Detected (NOT DETECT); Influenza A/2009-H1 Not Detected (NOT DETECT); Influenza A/H1 Not Detected (NOT DETECT); Influenza A/H3 Not Detected (NOT DETECT); Influenza B Not Detected (NOT DETECT); Mycoplasma pneumoniae Not Detected (NOT DETECT); Parainfluenza Virus 1 Not Detected (NOT DETECT); Parainfluenza Virus 2 Not Detected (NOT DETECT); Parainfluenza Virus 3 Not Detected (NOT DETECT); Parainfluenza Virus 4 Not Detected (NOT DETECT); Respiratory Syncytial Virus Detected (NOT DETECT)
--- NOTE | 2018-07-26 05:45 | NUR ---
SHIFT SUMMARY PT IS AN 83 Y/O MALE, ADMITTED FOR ACUTE RESPIRATORY FAILURE WITH HYPOXIA. THE PT IS A&O X 4, AND A 1PA IN THE ROOM WITH A CANE OR WALKER. THE PT DENIED ANY ACUTE PAIN, NAUSEA OR SOB DURING THE NIGHT. HE REMAINED ON 2L OF O2 VIA NC. PT WAS IN AFIB THROUGH THE NIGHT, WITH A RATE BETWEEN 80-120. ALL OTHER VITALS STABLE. THE PT HAD AN ELEVATED BLOOD SUGAR THROUGH THE NIGHT (SEE PREVIOUS NOTE), AND WAS COVERED TWICE WITH INSULIN. ON RECHECK THIS AM, THE PT'S BLOOD SUGAR HAD DROPPED TO 342. NO OTHER ACUTE CHANGES IN PT CONDITION NOTED. WILL CONTINUE TO MONITOR AND TREAT PER EMAR UNTIL HAND OFF TO DAY SHIFT.
--- NOTE | 2018-07-26 11:05 | NUR ---
patient is sitting on a chair and alert. Patient is very a talkative and easily shares about his life, his struggles and his relationships. I listened empathically, explored tenriism beliefs, provided companionship and provided prayer. Patient responded well and showed signs of restored roman. I continue to remain available to patient and family.
--- NOTE | 2018-07-26 16:56 | NUR ---
PT REPORTS STIFFNESS IN JOINTS IN HIS HANDS, HE STATES THAT HE HAS THIS ISSUE ON OCCASION AT HOME AND IT IS USUALLY RELIEVED WITH MOVEMNT, BUT THIS TECHNIQUE IS NOT ALIVIATING THE STIFFNESS AT THIS TIME. WILL OFFER K-PAD.
--- NOTE | 2018-07-26 16:58 | NUR ---
SHIFT SUMMARY PT HAS BEEN ON ROOM AIR AND OCCASIONALLY 1L VIA NASIAL CANNULA. EXPRATORY WHEESES STILL PRESENT IN ALL LUNG ESCALANTE. WHEEZING HAS IMPROVED SINCE THIS MORNING. PT SHOWERED THIS AFTERNOON. BEGAN CLEARING PROCESS OF ESBL.
--- NOTE | 2018-07-26 17:12 | NUR ---
SHIFT SUMMARY- PT A/O, PLEASANT AND COOPERATIVE. PT MEDICATED X1 THIS AM WITH NORCO FOR CHRONIC SHOULDER PAIN. LS WITH AUDIBLE EXP WHEEZES, ON RA MOST OF THE DAY WITH OCC 1L N/C. PT UP AND SHOWERED WITHOUT DIFFICULTY. UP TO RECLINER MOST OF THE DAY. BLOOD SUGARS REMAIN ELEVATED, NPH INCREASED AND ADA DIET ADDED. TELE AFIB WITH BBB AT 102. NO OTHER ACUTE CHANGES THIS SHIFT.
[2018-07-27 05:36] LABS: BASOPHILS ABSOLUTE AUTO 0.01 K/mm3 (0.00-0.23); BASOPHILS PERCENT AUTO 0 % (0-2); EOSINOPHILS PERCENT AUTO 0 % (0-6); Hematocrit 26.2 % (37.0-53.0); Hemoglobin 8.5 g/dL (13.5-17.5); IMMATURE GRAN ABSOLUTE AUTO 0.32 K/mm3 (0.00-0.10); IMMATURE GRAN PERCENT AUTO 3 % (0-1); LYMPHOCYTES ABSOLUTE AUTO 0.27 K/mm3 (0.84-5.20); LYMPHOCYTES PERCENT AUTO 2 % (21-46); MONOCYTES ABSOLUTE AUTO 0.41 K/mm3 (0.16-1.47); MONOCYTES PERCENT AUTO 3 % (4-13); Mean Corpuscular HGB Conc 32.4 g/dL (31.5-36.5); Mean Corpuscular Volume 93 fL (80-100); Mean Platelet Volume 9.1 fL (9.1-12.4); NEUTROPHILS ABSOLUTE AUTO 11.09 K/mm3 (1.96-9.15); NEUTROPHILS PERCENT AUTO 92 % (41-73); Platelet Count 131 K/mm3 (150-400); RDW Coefficient Variation 17.1 % (11.7-14.2); RDW Standard Deviation 58.3 fL (35.1-46.3); Red Blood Cell Count 2.83 M/mm3 (4.30-5.90)
[2018-07-27 05:59] LABS: Albumin, Blood 3.2 g/dL (3.4-5.0); Anion Gap 5 mmol/L (6-16); Blood Urea Nitrogen 42 mg/dL (8-24); Bun/Creatinine Ratio 31.6 (12.0-20.0); CO2, Blood 35 mmol/L (21-32); Calcium, Blood 8.7 mg/dL (8.5-10.1); Chloride, Blood 97 mmol/L (98-108); Creatinine, Blood 1.33 mg/dL (0.60-1.20); Glomerular Filtration Rate 55 (60-); Glucose, Blood 81 mg/dL (70-99); Phosphorus, Blood 3.1 mg/dL (2.5-4.9); Potassium, Blood 3.7 mmol/L (3.5-5.5); Sodium, Blood 137 mmol/L (136-145)
--- NOTE | 2018-07-27 14:40 | NUR ---
CONSULT CALLED TO DR ARIELA Upton
--- NOTE | 2018-07-27 17:06 | NUR ---
DR HUDSON IN TO SEE PT.
--- NOTE | 2018-07-27 18:15 | NUR ---
SHIFT SUMMARY- PT A/O, SPOUSE AT BEDSIDE T/O THE DAY. PT MEDICATED X1 WITH NORCO FOR RIGHT SHOULDER PAIN. LS COARSE WITH EXP WHEEZES, SOB WITH EXERTION BUT HAS IMPROVED T/O THE DAY. PT ON 2L N/C, CPAP AT HS. DR HUDSON CONSULTED AND CHEST XRAY COMPLETED. TELE AFIB 100-120'S. NO OTHER ACUTE CHANGES T/O SHIFT.
--- NOTE | 2018-07-28 04:39 | NUR ---
SHIFT SUMMARY PT HAD A BETTER NIGHT COMPARED TO PREVIOUS NIGHT. PT HAD LITTLE SOB WHILE SITTING IN HIS CHAIR. WHEN PT MOVED TO THE BED HIS SOB INCREASED. PT WAS POSITIONED HIGHER IN BED TONIGHT. PT HAD LESS SOB. PT WAS ABLE TO SLEEP FAIRLY WELL. PT DISCOMFORT TX PER EMAR. PT CURRENTLY SLEEPING IN NO DISTRESS. CALL LIGHT IN REACH.
[2018-07-28 05:29] LABS: BASOPHILS PERCENT AUTO 0 % (0-2); EOSINOPHILS ABSOLUTE AUTO 0.01 K/mm3 (0.00-0.68); EOSINOPHILS PERCENT AUTO 0 % (0-6); Hematocrit 29.6 % (37.0-53.0); Hemoglobin 9.2 g/dL (13.5-17.5); IMMATURE GRAN ABSOLUTE AUTO 0.47 K/mm3 (0.00-0.10); IMMATURE GRAN PERCENT AUTO 4 % (0-1); LYMPHOCYTES ABSOLUTE AUTO 0.23 K/mm3 (0.84-5.20); LYMPHOCYTES PERCENT AUTO 2 % (21-46); MONOCYTES ABSOLUTE AUTO 0.32 K/mm3 (0.16-1.47); MONOCYTES PERCENT AUTO 3 % (4-13); Mean Corpuscular HGB Conc 31.1 g/dL (31.5-36.5); Mean Platelet Volume 9.8 fL (9.1-12.4); NEUTROPHILS ABSOLUTE AUTO 10.46 K/mm3 (1.96-9.15); NEUTROPHILS PERCENT AUTO 91 % (41-73); Platelet Count 134 K/mm3 (150-400); RDW Standard Deviation 59.7 fL (35.1-46.3); Red Blood Cell Count 3.07 M/mm3 (4.30-5.90); White Blood Cell Count 11.49 K/mm3 (4.00-11.30)
[2018-07-28 05:45] LABS: Mean Corpuscular Volume 96 fL (80-100)
[2018-07-28 05:53] LABS: Percent Saturation 6.4 % (20.0-50.0)
[2018-07-28 06:03] LABS: Albumin, Blood 3.1 g/dL (3.4-5.0); Anion Gap 7 mmol/L (6-16); Blood Urea Nitrogen 45 mg/dL (8-24); Bun/Creatinine Ratio 34.6 (12.0-20.0); CO2, Blood 33 mmol/L (21-32); Calcium, Blood 8.4 mg/dL (8.5-10.1); Chloride, Blood 95 mmol/L (98-108); Glomerular Filtration Rate 56 (60-); Glucose, Blood 214 mg/dL (70-99); Phosphorus, Blood 3.9 mg/dL (2.5-4.9); Potassium, Blood 4.2 mmol/L (3.5-5.5); Sodium, Blood 135 mmol/L (136-145)
--- NOTE | 2018-07-28 16:39 | NUR ---
PT IS A/OX3, PLEASANT AND COOPERATIVE, THE PT IS UP WITH MINIMAL ASSIST, THE PTS BREATHING IS LABORED AT REST AND WITH ACTIVITY, THE PT IS ON 2L/MIN O2 VIA NC, THE PT SO FAR THIS SHIFT HAS REPORTED HIS PAIN TOLERABLE, WAS AT THE BEDSIDE FOR MOST OF THE DAY, PT WAS UP IN THE CHAIR FOR MOST OF THE DAY, THE PHYSICAL THERAPIST WORKED WITH THE PT TODAY, CALL LIGHT IN REACH, WILL CONTINUE TO MONITOR FOR CHANGES
--- NOTE | 2018-07-29 03:59 | NUR ---
3AM: SPOKE TO DR HAMMER REGARDING PATIENT PERSISTENT HACKY COUGH; PT RECEIVED TESSALON PERRLES AND CONTINUES TO COUGH; REQUEST TUSSIN; RECEIVED ORDERS PER EMAR;
[2018-07-29 05:42] LABS: BASOPHILS PERCENT AUTO 0 % (0-2); EOSINOPHILS ABSOLUTE AUTO 0.01 K/mm3 (0.00-0.68); EOSINOPHILS PERCENT AUTO 0 % (0-6); Hematocrit 29.9 % (37.0-53.0); Hemoglobin 9.6 g/dL (13.5-17.5); IMMATURE GRAN ABSOLUTE AUTO 0.21 K/mm3 (0.00-0.10); IMMATURE GRAN PERCENT AUTO 2 % (0-1); LYMPHOCYTES PERCENT AUTO 3 % (21-46); MONOCYTES ABSOLUTE AUTO 0.34 K/mm3 (0.16-1.47); MONOCYTES PERCENT AUTO 4 % (4-13); Mean Corpuscular HGB 30.2 pg (26.0-34.0); Mean Corpuscular HGB Conc 32.1 g/dL (31.5-36.5); Mean Corpuscular Volume 94 fL (80-100); Mean Platelet Volume 9.4 fL (9.1-12.4); NEUTROPHILS ABSOLUTE AUTO 8.88 K/mm3 (1.96-9.15); NEUTROPHILS PERCENT AUTO 91 % (41-73); Platelet Count 134 K/mm3 (150-400); RDW Coefficient Variation 16.3 % (11.7-14.2); RDW Standard Deviation 56.2 fL (35.1-46.3); Red Blood Cell Count 3.18 M/mm3 (4.30-5.90); White Blood Cell Count 9.74 K/mm3 (4.00-11.30)
--- NOTE | 2018-07-29 06:50 | NUR ---
PATIENT SLEPT LITTLE THIS SHIFT; THE COUGH MEDICINE WAS MORE EFFECTIVE FOR THE PATIENT THAN THE TESSALON PERLES. HE CONTINUES TO SOUND VERY COARSE AND WHEEZY; HE STATES HIS LUNGS FEEL "HEAVY" HE JUST REALLY HAD A TIME GETTING COMFORTABLE. HE RECEIVED BREATHING TREATMENTS PER ORDER.
[2018-07-29 09:52] LABS: PCO2 Arterial 51 mmHg (35-45); PO2 Arterial 56 mmHg (80-100); pH Blood Arterial 7.43 (7.35-7.45)
--- NOTE | 2018-07-29 15:20 | NUR ---
STUDENT ASSESSMENT I AGREE WITH AND WAS PRESENT AT THIS AM ASSESSMENT PERFORMED BY THE STUDENT NURSE ENRIQUE
--- NOTE | 2018-07-29 17:32 | NUR ---
Pt is A&Ox3. Pt has been drowsy throughout the shift, easily waking to verbal stimulous. Pt has been sitting up in the chair for much of this shift. Pt has been coughing throughout the shift with improvement after each of the 3 respiratory treatments he has received. Pt's has been in the room throughout the shift. Pt has additional family in the room currently. Pt states no additional needs at this time. Will continue to monitor.
--- NOTE | 2018-07-30 05:07 | NUR ---
BLURB WRITER SUMMARY PT AAOX4 AND PLEASANT. COOPERATIVE WITH CARE. PT STARTING TO PRODUCE LARGE AMOUNTS OF SPUTUM FOR THE FIRST TIME SINCE ADMIT. PT HAS BEEN COUGHING QUITE A BIT, MEDICATED WITH ROBITUSSIN AND TESSALON. SPUTUM IS BLOOD TINGED. PT HAS BEEN ON ROOM AIR WHILE AWAKE AND CPAP WHILE SLEEPING, SATS >90%. VSS, WILL CONTINUE TO MONITOR.
[2018-07-30 06:05] LABS: Bun/Creatinine Ratio 34.6 (12.0-20.0); Calcium, Blood 8.1 mg/dL (8.5-10.1); Creatinine, Blood 1.3 mg/dL (0.60-1.20); Potassium, Blood 3.6 mmol/L (3.5-5.5)
--- NOTE | 2018-07-30 18:38 | NUR ---
PT IS A/OX3, [place], UP WITH MINIMAL ASSIST AND THE FWW, HTE PT IS VERY SOB AT REST AND WITH ACTIVITY COMPARED TO YESTERDAY, TODAY THE PT HAS DEVELOPED A MORE PERSISTANT HARSH BLOODY COUGH, THE PT WAS MEDICATED FOR PAIN AND COUGH T/O THE DAY, PT WAS ENCOURAGED TO WEAR EITHER OXYGEN OR HIS CPAP, THE PT HAD A DIFFICULT TIME WITH THE CPAP DUE TO THE COUGH, PTS AT THE BEDSIDE T/O THE DAY PARTICIPATING IN HIS CARE, CALL LIGHT IN REACH
--- NOTE | 2018-07-31 07:21 | NUR ---
Rn summary: Pt is alert and oriented. He is [place]. Pt up in chair on cpap at beginning of shift. Cont biox with sats 88-94% on 2 liters. Breath sounds with course inspiratory expiratory wheezes. Pt does have a productive cough with some bloody sputum. Pt states he has coughed less this shift. Pt ws medicated x3 with Robitussin and codeine. He was medicated x2 with [place] 1 for back leg shoulder pain. Pt is able to get up independantly to the BR, but states he has significant air hunger by the time he is back in bed. Pt went home last evening and daughter staed with pt. states she had an emotional meltdown and she had been crying at the beginning of shift. Family does better if next due of pain meds and cough meds are on the white board. Pt resting in bed at this time with O2 2 liters NC. Call light in reach.
--- NOTE | 2018-07-31 16:46 | NUR ---
SHIFT SUMMARY NO ACUTE CHANGES. PATIENT MEDICATED X 2 FOR PAIN AND COUGH TODAY. DENIES NAUSEA AND SHORTNESS OF BREATH. REQUIRES 2L OF OXYGEN TO MAINTAIN SATURATION AT REST. PATIENT WORKED WITH PT AND WENT ON WALKS IN HALLWAY WITH STAFF TODAY. AT BEDSIDE. CALL LIGHT IN REACH, WILL CONTINUE TO MONITOR.
--- NOTE | 2018-08-01 06:53 | NUR ---
family in room, had trouble keeping o2 up, on CPAP, RT consulted running in 90's now at 3L, saline locked, call light in reach, walking rounds completed with day staff
--- NOTE | 2018-08-01 18:28 | NUR ---
PATIENT HAS HAD FAMILY AT BEDSIDE. AT START OF SHIFT PATIENT WAS COUGHING AND SOB WHICH RESOLVED THE MORNING WORE ON. HE WAS ABLE TO SIT UP IN CHAIR AND GO FOR LONG PERIODS WITHOUT COUGHING OR NOTED DISTRESS. NO ACUTE CHANGES.
[2018-08-02 05:40] LABS: BASOPHILS ABSOLUTE AUTO 0.01 K/mm3 (0.00-0.23); BASOPHILS PERCENT AUTO 0 % (0-2); EOSINOPHILS PERCENT AUTO 0 % (0-6); Hematocrit 29.4 % (37.0-53.0); Hemoglobin 9.1 g/dL (13.5-17.5); IMMATURE GRAN ABSOLUTE AUTO 0.31 K/mm3 (0.00-0.10); IMMATURE GRAN PERCENT AUTO 3 % (0-1); LYMPHOCYTES PERCENT AUTO 2 % (21-46); MONOCYTES ABSOLUTE AUTO 0.63 K/mm3 (0.16-1.47); MONOCYTES PERCENT AUTO 5 % (4-13); Mean Corpuscular Volume 94 fL (80-100); Mean Platelet Volume 9.2 fL (9.1-12.4); NEUTROPHILS ABSOLUTE AUTO 10.44 K/mm3 (1.96-9.15); NEUTROPHILS PERCENT AUTO 90 % (41-73); Platelet Count 132 K/mm3 (150-400); RDW Coefficient Variation 15.7 % (11.7-14.2); RDW Standard Deviation 53.4 fL (35.1-46.3); Red Blood Cell Count 3.14 M/mm3 (4.30-5.90); White Blood Cell Count 11.59 K/mm3 (4.00-11.30)
[2018-08-02 06:02] LABS: Anion Gap 4 mmol/L (6-16); Blood Urea Nitrogen 39 mg/dL (8-24); Bun/Creatinine Ratio 32.8 (12.0-20.0); CO2, Blood 39 mmol/L (21-32); Calcium, Blood 8.4 mg/dL (8.5-10.1); Chloride, Blood 92 mmol/L (98-108); Creatinine, Blood 1.19 mg/dL (0.60-1.20); Glomerular Filtration Rate >60 (60-); Glucose, Blood 141 mg/dL (70-99); Potassium, Blood 3.8 mmol/L (3.5-5.5); Sodium, Blood 135 mmol/L (136-145)
--- NOTE | 2018-08-02 07:32 | NUR ---
NOC SHIFT SUMMARY PT HAS BEEN PLEASANT AND COOPERATIVE WITH CARE THIS NIGHT. HAS HAD PAIN WITH COUGHING FOR WHICH HE WAS MEDICATED FOR. HE CONTINUES TO DESAT AND HAVE TACHYCARDIA WHEN HE TAKES HIS O2 OFF. VS NORMAL LONG HE KEEPS O2 ON. PT APPEARS IN NO ACUTE DISTRESS AT THIS TIME. REPORT TO ONCOMING RN.
--- NOTE | 2018-08-02 17:57 | NUR ---
NO ACUTE CHANGES THIS SHIFT. PATIENT HAS BEEN UP IN CHAIR MOST OF THE DAY. PRESENT. C/O OF BACK PAIN AND MEDICATED FOR PAIN PER EMAR. PATIENTS APPETITE HAS BEEN SLOW THIS SHIFT AND HE HAS REFUSED MOST OF THE FOOD OFFERED. FAMILY BRINGS IN FOOD TOLERATED BY PATIENT.
[2018-08-03 05:42] LABS: BASOPHILS ABSOLUTE AUTO 0.01 K/mm3 (0.00-0.23); BASOPHILS PERCENT AUTO 0 % (0-2); EOSINOPHILS PERCENT AUTO 0 % (0-6); Hematocrit 27.1 % (37.0-53.0); Hemoglobin 8.4 g/dL (13.5-17.5); IMMATURE GRAN ABSOLUTE AUTO 0.37 K/mm3 (0.00-0.10); IMMATURE GRAN PERCENT AUTO 4 % (0-1); LYMPHOCYTES ABSOLUTE AUTO 0.19 K/mm3 (0.84-5.20); LYMPHOCYTES PERCENT AUTO 2 % (21-46); MONOCYTES ABSOLUTE AUTO 0.54 K/mm3 (0.16-1.47); MONOCYTES PERCENT AUTO 6 % (4-13); Mean Corpuscular HGB 28.7 pg (26.0-34.0); Mean Corpuscular Volume 93 fL (80-100); Mean Platelet Volume 9.2 fL (9.1-12.4); NEUTROPHILS ABSOLUTE AUTO 7.33 K/mm3 (1.96-9.15); NEUTROPHILS PERCENT AUTO 87 % (41-73); Platelet Count 118 K/mm3 (150-400); RDW Coefficient Variation 15.9 % (11.7-14.2); RDW Standard Deviation 53.4 fL (35.1-46.3); Red Blood Cell Count 2.93 M/mm3 (4.30-5.90); White Blood Cell Count 8.44 K/mm3 (4.00-11.30)
[2018-08-03 06:12] LABS: Anion Gap 3 mmol/L (6-16); Blood Urea Nitrogen 38 mg/dL (8-24); Bun/Creatinine Ratio 32.8 (12.0-20.0); CO2, Blood 40 mmol/L (21-32); Calcium, Blood 8.4 mg/dL (8.5-10.1); Chloride, Blood 94 mmol/L (98-108); Creatinine, Blood 1.16 mg/dL (0.60-1.20); Glomerular Filtration Rate >60 (60-); Glucose, Blood 71 mg/dL (70-99); Potassium, Blood 3.7 mmol/L (3.5-5.5); Sodium, Blood 137 mmol/L (136-145)
--- NOTE | 2018-08-03 06:38 | NUR ---
SHIFT SUMMARY PT IS AN 83 Y/O MALE, ADMITTED FOR ACUTE RESPIRATORY FAILURE. HE IS A&O X 4, AND INDEPENDENT IN THE ROOM. PT'S REMAINED AT BEDSIDE THROUGH THE NIGHT. THE PT REPORTED PAIN IN HIS RIBS FROM COUGHING, AND WAS MEDICATED X1 WITH HYDROCODONE FOR PAIN. THE PT ALSO REPORTED SOB AFTER COUGHING EPISODES, WITH SMALL AMOUNTS OF BLOODY SPUTUM PRODUCED. HE DENIED ANY ACUTE NAUSEA. PT'S HEART RATE WAS ELEVATED DURING THE NIGHT, AVERAGING THE 110-120S PER THE CONTINUOUS BIOX. ALL OTHER VITALS STABLE. NO OTHER ACUTE CHANGES IN PT CONDITION NOTED. WILL CONTINUE TO MONITOR AND TREAT PER EMAR.
--- NOTE | 2018-08-03 14:57 | NUR ---
SHIFT SUMMARY PT MEDICATED FOR PAIN TWICE THIS SHIFT. PT SHOWERED & L HEEL DRESSING REPLACED. PT REQUIRES 1L O2 WHEN NAPPING. AT BEDSIDE. NO OTHER CHANGES IN ASSESSMENT AT THIS TIME. VSS. REPORT GIVEN TO ROBERT MILLER WHO DENIES FURTHER QUESTIONS.
--- NOTE | 2018-08-03 15:10 | NUR ---
ASSUMED CARE OF PT, REPORTS RECEIVED FROM ROBERT PELAEZ. PT LYING IN BED ASLEEP, SPOUSE AT BEDSIDE AT THIS TIME.
--- NOTE | 2018-08-03 16:33 | NUR ---
ASSUMED CARE OF THIS PT AT 1500. LUNG SOUNDS ARE CORSE, WITH WHEEZES. NONPRODUCTIVE, WET SOUNDING COUGH. PT HAS +1 EDEMA IN LOWER EXTREMITIES.
--- NOTE | 2018-08-04 06:00 | NUR ---
SHIFT SUMMARY PT IS AN 83 Y/O MALE, ADMITTED FOR ACUTE RESPIRATORY FAILURE. HE IS A&O X 4, THOUGH VERY HARD OF HEARING, AND ABLE TO AMBULATE SBA WITH A WALKER. HE REPORTED CHRONIC BACK AND HIP PAIN, FOR WHICH HE WAS MEDICATED ONCE WTIH PRN HYDROCODONE. HE ALSO REPORTED A PRODUCTIVE COUGH WITH A SMALL AMOUNT OF BLOODY SPUTUM. NO COMPLAINTS OF NAUSEA. PT SLEPT WELL THROUGH THE NIGHT. PT'S REMAINED AT BEDSIDE. THE PT'S HEART RATE WAS ELEVATED DURING THE NIGHT ON THE CONTINUOUS BIOX, BETWEEN 100-110S. ALL OTHER VITALS STABLE. NO OTHER ACUTE CHANGES IN PT CONDITION NOTED. WILL CONTINUE TO MONITOR AND TREAT PER EMAR.
--- NOTE | 2018-08-04 14:54 | NUR ---
PATIENT REFUSED IV CHANGE. STATES THEY WOULD LIKE TO KEEP THE CURRENT ACCESS THAT IS PATENT. EXPLAINED RISKS RELATED TO NEEDING A LARGE BORE IV IF BLOOD SUGARS DECREASE. PATIENT AND ACKNOWLEDGED THIS INFORMATION. ALSO STATED PATIENT DOES NOT LIKE HOSPITAL FOOD AND SH JENNIFER POWERSN HER OWN FOOD.
--- NOTE | 2018-08-05 06:32 | NUR ---
SHIFT SUMMARY PT IS AN 83 Y/O MALE, ADMITTED FOR ACUTE RESPIRATORY FAILURE. HE IS A&O X 4, AND A SBA IN THE ROOM. PT REPORTED CHRONIC PAIN IN HIS BACK AND HIPS, FOR WHICH HE WAS MEDICATED X 1 WITH PRN HYDROCODONE. HE DENIED ANY ACUTE NAUSEA OR SOB, AND STATED THAT HE FELT "BETTER" THAN HE HAS BEEN. VITALS REMAINED STABLE. NO OTHER ACUTE CHANGES IN PT CONDITION NOTED. WILL CONTINUE TO MONITOR AND TREAT PER EMAR.
[2018-08-05] MEDS ORDERED: ALBU2.5V5 NEB (17:01)
[2018-08-05] MEDS ORDERED: BENZ100A PO (17:01)
[2018-08-05] MEDS ORDERED: CEFU500T30 PO (17:02)
[2018-08-05] MEDS ORDERED: ROBITUSSIN COU237 ML PO (17:07)
[2018-08-05] MEDS ORDERED: METR500 PO (17:08)
[2018-08-05] MEDS ORDERED: PRED20 PO (17:09)
[2018-08-05] MEDS ORDERED: FLUT1DIS5 INH (17:11)
--- NOTE | 2018-08-05 17:36 | NUR ---
Discharge Summary Discharge papers and teaching reviewed with patient and . Meds faxed over to [facility]. Belongings sent home with pt. Transported to vehicle via w/c by Carmencita JONES. Pt and given time to ask questions.
--- NOTE | 2018-08-05 18:40 | NUR ---
STUDENT HAD PT CARE TODAY. PLEASE REFER TO STUDENT NOTED FOR DISCHARGE SUMMARY.
== END 2018-08-05 17:36 | disposition home health service (06) | DRG 189 ==
LOC: ER 13:06 → MEDS 16:02
PROVIDERS: Emergency Medicine; Hospitalist; Internal Medicine; ADMIT Family Medicine
PROC: 5A09357 Assistance with Respiratory Ventilation, Less than 24 Consecutive Hours, Continuous Positive Airway Pressure (ICD-10-PCS; principal; 2018-07-27)
DX: J96.01 Acute respiratory failure with hypoxia (principal); J69.0 Pneumonitis due to inhalation of food and vomit; J44.1 Chronic obstructive pulmonary disease with (acute) exacerbation; I13.0 Hypertensive heart and chronic kidney disease with heart failure and stage 1 through stage 4 chronic kidney disease, or unspecified chronic kidney disease; I50.22 Chronic systolic (congestive) heart failure; N17.9 Acute kidney failure, unspecified; R04.2 Hemoptysis; E87.1 Hypo-osmolality and hyponatremia; B97.4 Respiratory syncytial virus as the cause of diseases classified elsewhere; G47.33 Obstructive sleep apnea (adult) (pediatric); G47.31 Primary central sleep apnea; N18.9 Chronic kidney disease, unspecified; E11.22 Type 2 diabetes mellitus with diabetic chronic kidney disease; E11.65 Type 2 diabetes mellitus with hyperglycemia; I48.91 Unspecified atrial fibrillation; E66.9 Obesity, unspecified; I35.0 Nonrheumatic aortic (valve) stenosis; I27.20 Pulmonary hypertension, unspecified; E78.5 Hyperlipidemia, unspecified; K21.9 Gastro-esophageal reflux disease without esophagitis; R07.9 Chest pain, unspecified; F32.9 Major depressive disorder, single episode, unspecified; D69.6 Thrombocytopenia, unspecified; I25.10 Atherosclerotic heart disease of native coronary artery without angina pectoris; D64.9 Anemia, unspecified; I25.2 Old myocardial infarction; Z88.1 Allergy status to other antibiotic agents; Z88.0 Allergy status to penicillin; Z79.01 Long term (current) use of anticoagulants; Z79.82 Long term (current) use of aspirin; Z79.4 Long term (current) use of insulin; Z79.891 Long term (current) use of opiate analgesic; Z79.899 Other long term (current) drug therapy; Z95.1 Presence of aortocoronary bypass graft; Z87.891 Personal history of nicotine dependence; Z68.31 Body mass index [BMI] 31.0-31.9, adult
CPT/HCPCS: 36415; 36600; 71045; 71046; 80048; 80053; 80069; 82607; 82728; 82746; 82803; 82947; 83540; 83550; 83880; 84145; 84484; 85025; 87070; 87081; 87205; 87486; 87581; 87633; 87798; 92526; 92610; 93005; 93010; 94640; 94644; 94664; 94667; 94668; 94760; 94762; 96374; 97110; 97116; 97162; 97530; 98960; 99285-25; A9270; A9270-GY; J0696; J1815; J2930; J7050; J7512

== ENCOUNTER 2018-08-09 11:10 | Inpatient (IN) | payer MEDICARE, OTHER ==
[~2018-08-09] VITALS: Ht 180.3 cm; Wt 96.2 kg
[~2018-08-09 11:10] MED LIST changes: +BENZ100A PO; +METR500 PO; +PRED20 PO; +ROBITUSSIN COU237 ML PO; +ROSU5 PO
[2018-08-09 12:07] LABS: Hematocrit 27.8 % (37.0-53.0); Hemoglobin 8.9 g/dL (13.5-17.5); Mean Corpuscular HGB 28.9 pg (26.0-34.0); Mean Platelet Volume 9.2 fL (9.1-12.4); Platelet Count 204 K/mm3 (150-400); RDW Standard Deviation 52.6 fL (35.1-46.3); Red Blood Cell Count 3.08 M/mm3 (4.30-5.90)
[2018-08-09 12:20] LABS: Mean Corpuscular Volume 90 fL (80-100)
[2018-08-09 12:24] LABS: Alanine Aminotransfer (ALT/SGP 31 U/L (12-78); Albumin, Blood 2.3 g/dL (3.4-5.0); Albumin/Globulin Ratio 0.6 (0.8-1.8); Alk Phos 93 U/L (50-136); Anion Gap 7 mmol/L (6-16); Aspartate Aminotrans (AST/SGOT 16 U/L (12-37); Bilirubin, Total 0.9 mg/dL (0.1-1.0); Blood Urea Nitrogen 40 mg/dL (8-24); Bun/Creatinine Ratio 32.5 (12.0-20.0); CO2, Blood 43 mmol/L (21-32); Calcium, Blood 8.7 mg/dL (8.5-10.1); Chloride, Blood 79 mmol/L (98-108); Creatinine, Blood 1.23 mg/dL (0.60-1.20); Glomerular Filtration Rate 60 (60-); Glucose, Blood 516 mg/dL (70-99); Potassium, Blood 3.3 mmol/L (3.5-5.5); Sodium, Blood 129 mmol/L (136-145); Total Protein, Blood 6.3 g/dL (6.4-8.2)
[2018-08-09 12:51] LABS: BASOPHILS PERCENT MAN 0 % (0-2); EOSINOPHILS PERCENT MAN 0 % (0-6); LYMPHOCYTES ABSOLUTE MAN 0.29 K/mm3 (0.84-5.20); LYMPHOCYTES PERCENT MAN 2 % (21-46); MONOCYTES ABSOLUTE MAN 0.14 K/mm3 (0.16-1.47); MONOCYTES PERCENT MAN 1 % (4-13); NEUTROPHILS ABSOLUTE MAN 14.06 K/mm3 (1.96-9.15); SEG NEUTROPHILS PERCENT MAN 97 % (41-73); TOTAL CELLS COUNTED 100
[2018-08-09 13:03] LABS: Base Excess Venous 26.4 mmol/L; Bicarbonate Venous 48.2 mmol/L (24.0-30.0); PCO2 Venous 64.9 mmHg (38-42); PO2 Venous 71.2 mmHg (38-42); pH Blood Venous 7.49 (7.34-7.37)
[2018-08-09] MEDS ORDERED: ALBU2.5V5 NEB (15:13)
[2018-08-09] MEDS ORDERED: FLUT1DIS5 INH (15:14)
--- NOTE | 2018-08-09 19:29 | NUR ---
SHIFT SUMMARY PT AXO TO SPOUSE BUT IS CONFUSED AND FORGETFUL. PT HAS JERKING MOVEMENTS WITH EXTREMITIES. PT ARRIVED TO ROOM VIA BED AT 1525 WITH SPOUSE PRESENT. ADMISSION PROCESS COMPLETED THOUGH MED REC NEEDS TO BE COMPLETED. PT'S SPOUSE SAYS THAT SHE CANNOT RECALL HIS MEDS AND GAVE HER LIST TO THE PARAMEDICS. NURSE WAS NOT ABLE TO FIND THIS LIST. BED ALARM ON, PT ATTEMPTING OOB WITH SPOUSE PRESENT IN ROOM. NURSE NOTIFIED CHARGE NURSE THAT PT MAY NEED A BED IN SCU. PT HYPOTENSIVE AT 1529, DR BISHOP NOTIFIED, NEW ORDERS INITIATED. BED IN LOW POSITION, CALL LIGHT WITHIN REACH, BED ALARM ON. REPORT GIVEN TO TOMBSTONE CARVER NURSE WHO WILL ASSUME CARE AT THIS TIME
--- NOTE | 2018-08-09 22:54 | NUR ---
RT SET UP PATIENT CPAP WITH CONTINUOUS PULSE OXIMETRY AND PATIENT WORE FOR AN HOUR AND PULLED OFF DESTATING TO 87%. PATIENT PUT ON O2 3L NC AND STATING BACK TO 96%. DAUGHTER NOW PRESENT IN ROOM AND REMINDING PATIENT TO PUT HIS CPAP ON BUT REFUSES.
--- NOTE | 2018-08-10 02:28 | NUR ---
PATIENT TRIED TO EXIT BED X TWO ACTIVATING BED ALARM. PATIENT REORIENTED BACK INTO BED. BED ALARM SET. WILL CONTINUE TO MONITOR.
--- NOTE | 2018-08-10 03:30 | NUR ---
HOSPITALIST DR ENGEL NOTIFIED OF PCU STATUS FOR PATIENT AND CHANGED TO MEDICAL FLOOR TRANSFER STATUS.
--- NOTE | 2018-08-10 04:17 | NUR ---
SHIFT SUMMARY PATIENT HAD NO ACUTE CHANGES OBSERVED THIS SHIFT. AXOX 2 TO SELF/FAMILY. SLOW TO RESPOND. CBG 169. PIVS REMAIN INTACT. LR INFUSING AT 50 mL/HR. ON 3L O2 NC. BEDFAST. RT SET UP CPAP WITH CONTINUOUS PULSE OXIMETRY. PATIENT HAD ON FOR AN HOUR AND REFUSED GOING BACK TO N/C. PATIENT OOB X TWO ACTIVATING BED ALARM AND REORIENTED BACK INTO BED. DAUGHTER CHECKED ON PATIENT T/O THE NIGHT. PATIENT DESTATS TO 87% W/O 3L AND BACK TO 96-97% WITH. CALL LIGHT IN REACH. BED IN LOWEST POSITION. WILL CONTINUE TO MONITOR UNTIL DAY SHIFT NURSE ASSUMES CARE.
[2018-08-10 04:40] LABS: Base Excess Venous 28.7 mmol/L; Bicarbonate Venous 50.9 mmol/L (24.0-30.0); PO2 Venous 65.1 mmHg (38-42); pH Blood Venous 7.55 (7.34-7.37)
[2018-08-10 04:53] LABS: BASOPHILS ABSOLUTE AUTO 0.01 K/mm3 (0.00-0.23); BASOPHILS PERCENT AUTO 0 % (0-2); EOSINOPHILS ABSOLUTE AUTO 0.01 K/mm3 (0.00-0.68); EOSINOPHILS PERCENT AUTO 0 % (0-6); Hematocrit 26.4 % (37.0-53.0); Hemoglobin 8.2 g/dL (13.5-17.5); IMMATURE GRAN ABSOLUTE AUTO 0.49 K/mm3 (0.00-0.10); IMMATURE GRAN PERCENT AUTO 3 % (0-1); LYMPHOCYTES ABSOLUTE AUTO 0.67 K/mm3 (0.84-5.20); LYMPHOCYTES PERCENT AUTO 4 % (21-46); MONOCYTES ABSOLUTE AUTO 1.41 K/mm3 (0.16-1.47); MONOCYTES PERCENT AUTO 9 % (4-13); Mean Corpuscular HGB 28.3 pg (26.0-34.0); Mean Corpuscular HGB Conc 31.1 g/dL (31.5-36.5); Mean Corpuscular Volume 91 fL (80-100); Mean Platelet Volume 9.1 fL (9.1-12.4); NEUTROPHILS ABSOLUTE AUTO 13.46 K/mm3 (1.96-9.15); NEUTROPHILS PERCENT AUTO 84 % (41-73); Platelet Count 180 K/mm3 (150-400); RDW Coefficient Variation 16.1 % (11.7-14.2); RDW Standard Deviation 51.8 fL (35.1-46.3); White Blood Cell Count 16.05 K/mm3 (4.00-11.30)
--- NOTE | 2018-08-10 05:25 | NUR ---
cH VENOUS pH 7.55, HOSPITALIST DR ENGEL NOTIFIED AND REPORTS CONTINUE TO MONITOR WITH NO CHANGE NOTED IN PATIENT. SLEEPING STATING 96-98% 3L O2 NC.
[2018-08-10 05:28] LABS: Free Thyroxine 0.91 ng/dL (0.70-1.60)
[2018-08-10 05:34] LABS: Alanine Aminotransfer (ALT/SGP 31 U/L (12-78); Albumin, Blood 2.2 g/dL (3.4-5.0); Albumin/Globulin Ratio 0.6 (0.8-1.8); Alk Phos 57 U/L (50-136); Anion Gap Unable to Calculate mmol/L (6-16); Aspartate Aminotrans (AST/SGOT 19 U/L (12-37); Bilirubin, Total 0.6 mg/dL (0.1-1.0); Blood Urea Nitrogen 37 mg/dL (8-24); Bun/Creatinine Ratio 30.6 (12.0-20.0); Calcium, Blood 8.5 mg/dL (8.5-10.1); Chloride, Blood 88 mmol/L (98-108); Creatinine, Blood 1.21 mg/dL (0.60-1.20); Globulin, Blood 3.7 g/dL (2.2-4.0); Glomerular Filtration Rate >60 (60-); Glucose, Blood 57 mg/dL (70-99); Potassium, Blood 2.9 mmol/L (3.5-5.5); Sodium, Blood 140 mmol/L (136-145); Total Protein, Blood 5.9 g/dL (6.4-8.2)
[2018-08-10 05:44] LABS: CO2, Blood >45 mmol/L (21-32)
--- NOTE | 2018-08-10 18:20 | NUR ---
PATIENT VERY DROWSY THIS AM, BUT WOKE UP TO WORK WITH PT THIS AFTERNOON. UP TO CHAIR FOR SEVERAL HOURS WITH FWW AND 2 ASSIST. LUNGS DIMINISHED THROUGHOUT, 2LO2 TO MAINTAIN SATS. HOME CPAP AT [facility]. MULTIPLE SKIN ISSUES FROM RECENT FALLS. A/OX3, AT BEDSIDE THROUGHOUT THE SHIFT. THRUSH IN MOUTH, MYCELEX LOZENGES ORDERED TO TREAT. B/P LOW THIS AM, BUT HAS IMPROVED. ACHS BLOOD SUGARS, COVERAGE GIVEN BEFORE DINNER. 18G IV TO R FA WNL, NS @ 50ML/HR INFUSING. PATIENT IS CALM AND COOPERATIVE WITH CARE, CALLS APPROPRIATELY FOR ASSISTANCE.
--- NOTE | 2018-08-10 22:08 | NUR ---
PATIENT MENTATION IMPROVED FROM LAST NOCX SHIFT. AXOX 3 AND ABLE TO HAVE CONVERSATION AND MAKE HIS NEEDS KNOW. TOOK MEDICATION A FEW AT A TIME WITH WATER. PRESENT. ON 2L O2 NC STATING 95%. LR INFUSING AT 50 mL/HR. CBG 241. CALL LIGHT IN REACH.
--- NOTE | 2018-08-11 04:12 | NUR ---
SHIFT SUMMARY PATIENT'S MENTATION HAS IMPROVED SINCE LAST NOCX SHIFT. AXOX 3 AND ABLE TO HOLD A CONVERSATION AND EXPRESS HIS NEEDS. PRESENT. FACIAL WOUNDS HEALING AND SWELLING DOWN. BEDFAST AT NIGHT AND TWO PERSON ASSIST TO CHAIR PER DAY SHIFT RN. PIV REMAIN INTACT. LR INFUSING AT 50 mL/HR. IV ABX INFUSED. CBG 241. ON 2L O2 NC. CPAP AT NIGHT WITH CONTINUOUS PULSE OXIMETRY STATING 95%. VSS/AFEBRILE. CALL LIGHT IN REACH. BED IN LOWEST POSITION. WILL CONTINUE TO MONITOR UNTIL DAY SHIFT NURSE ASSUMES CARE.
[2018-08-11 04:56] LABS: BASOPHILS ABSOLUTE AUTO 0.01 K/mm3 (0.00-0.23); BASOPHILS PERCENT AUTO 0 % (0-2); EOSINOPHILS PERCENT AUTO 0 % (0-6); Hematocrit 27.9 % (37.0-53.0); Hemoglobin 8.5 g/dL (13.5-17.5); IMMATURE GRAN ABSOLUTE AUTO 0.51 K/mm3 (0.00-0.10); IMMATURE GRAN PERCENT AUTO 5 % (0-1); LYMPHOCYTES ABSOLUTE AUTO 0.57 K/mm3 (0.84-5.20); LYMPHOCYTES PERCENT AUTO 5 % (21-46); MONOCYTES ABSOLUTE AUTO 0.71 K/mm3 (0.16-1.47); MONOCYTES PERCENT AUTO 7 % (4-13); Mean Corpuscular HGB 28.4 pg (26.0-34.0); Mean Corpuscular HGB Conc 30.5 g/dL (31.5-36.5); Mean Corpuscular Volume 93 fL (80-100); Mean Platelet Volume 9.1 fL (9.1-12.4); NEUTROPHILS ABSOLUTE AUTO 8.71 K/mm3 (1.96-9.15); NEUTROPHILS PERCENT AUTO 83 % (41-73); Platelet Count 178 K/mm3 (150-400); RDW Coefficient Variation 16.6 % (11.7-14.2); RDW Standard Deviation 54.7 fL (35.1-46.3); Red Blood Cell Count 2.99 M/mm3 (4.30-5.90); White Blood Cell Count 10.51 K/mm3 (4.00-11.30)
[2018-08-11 05:35] LABS: Albumin, Blood 2.2 g/dL (3.4-5.0); Blood Urea Nitrogen 31 mg/dL (8-24); Bun/Creatinine Ratio 27.9 (12.0-20.0); Calcium, Blood 8.6 mg/dL (8.5-10.1); Chloride, Blood 89 mmol/L (98-108); Creatinine, Blood 1.11 mg/dL (0.60-1.20); Glomerular Filtration Rate >60 (60-); Glucose, Blood 188 mg/dL (70-99); Magnesium, Blood 2.5 mg/dL (1.6-2.4); Phosphorus, Blood 3.6 mg/dL (2.5-4.9); Sodium, Blood 137 mmol/L (136-145)
[2018-08-11 05:38] LABS: Anion Gap Unable to Calculate mmol/L (6-16)
[2018-08-11 05:42] LABS: CO2, Blood >45 mmol/L (21-32)
[2018-08-11 08:23] LABS: Base Excess Venous 24.6 mmol/L; Bicarbonate Venous 45.9 mmol/L (24.0-30.0); PCO2 Venous 64.8 mmHg (38-42); PO2 Venous 41.2 mmHg (38-42); pH Blood Venous 7.48 (7.34-7.37)
--- NOTE | 2018-08-11 12:39 | NUR ---
BIPAP PLACED ON PATIENT WHILE NAPPING.
--- NOTE | 2018-08-11 13:00 | NUR ---
CAITLIN ELENA AT BEDSIDE ASSESSING PT'S CPAP MACHINE.
--- NOTE | 2018-08-11 13:20 | NUR ---
PT'S CPAP NOT FX PER CAITLIN RT; REPLACED WITH HOSPITAL MACHINE; PT RESTING AND IN NO ACUTE DISTRESS; 02 SATS 96%
--- NOTE | 2018-08-11 18:26 | NUR ---
SHIFT SUMMARY PATIENT IS AXO-IN NO DISTRESS. HIS IS BY HIS SIDE. HE HAS BEEN USING O2 AND CPAP INTERMITTENTLY THROUGHOUT THE DAY. ON HIS CPAP MACHINE FROM HOME HIS SATS REMAINED IN THE LOW 80'S. RT PUT HIM ON A HOSPITAL CPAP MACHINE WITH 1-2 LITER O2 WHICH PUT HIM UP TO APPROX. 95%.-CPAP HAS BEEN TAKEN OFF AT THIS TIME PER DR. ORNELAS PT. SHOULD REMAIN 89-92%. OXYGEN VIA NC HAS BEEN LOWERED TO 1.5 LPM--WILL MONITOR OUTCOME.
--- NOTE | 2018-08-12 03:27 | NUR ---
SHIFT SUMMARY PATIENT HAD NO ACUTE CHANGES OBSERVED THIS SHIFT. AXOX 3 AND ONE TO TWO PERSON ASSIST TO BSC. SPOUSE PRESENT T/O SHIFT. DENIES PAIN, SOB, AND N/V. PIV REMAIN INTACT. IV ABX INFUSED. VSS/AFEBRILE. CBG 322. ON 2L O2 NC AND CPAP AT NIGHT WITH CONTINUOUS PULSE OXIMETRY. COOPERATIVE WITH CARE. TAKES MEDICATION 1-3 AT A TIME W/WATER. CALL LIGHT IN REACH. BED IN LOWEST POSITION. WILL CONTINUE TO MONITOR UNTIL DAY SHIFT NURSE ASSUMES CARE.
[2018-08-12 07:58] LABS: BASOPHILS PERCENT AUTO 0 % (0-2); EOSINOPHILS ABSOLUTE AUTO 0.02 K/mm3 (0.00-0.68); EOSINOPHILS PERCENT AUTO 0 % (0-6); Hematocrit 28.2 % (37.0-53.0); Hemoglobin 8.7 g/dL (13.5-17.5); IMMATURE GRAN ABSOLUTE AUTO 0.35 K/mm3 (0.00-0.10); IMMATURE GRAN PERCENT AUTO 3 % (0-1); LYMPHOCYTES ABSOLUTE AUTO 0.92 K/mm3 (0.84-5.20); LYMPHOCYTES PERCENT AUTO 9 % (21-46); MONOCYTES PERCENT AUTO 9 % (4-13); Mean Corpuscular HGB 28.4 pg (26.0-34.0); Mean Corpuscular HGB Conc 30.9 g/dL (31.5-36.5); Mean Corpuscular Volume 92 fL (80-100); Mean Platelet Volume 8.8 fL (9.1-12.4); NEUTROPHILS ABSOLUTE AUTO 8.41 K/mm3 (1.96-9.15); NEUTROPHILS PERCENT AUTO 79 % (41-73); Platelet Count 161 K/mm3 (150-400); RDW Coefficient Variation 17.2 % (11.7-14.2); RDW Standard Deviation 55.7 fL (35.1-46.3); Red Blood Cell Count 3.06 M/mm3 (4.30-5.90)
[2018-08-12 08:42] LABS: Anion Gap 4 mmol/L (6-16); Blood Urea Nitrogen 27 mg/dL (8-24); Bun/Creatinine Ratio 26.7 (12.0-20.0); CO2, Blood 45 mmol/L (21-32); Calcium, Blood 8.2 mg/dL (8.5-10.1); Chloride, Blood 88 mmol/L (98-108); Creatinine, Blood 1.01 mg/dL (0.60-1.20); Glomerular Filtration Rate >60 (60-); Glucose, Blood 141 mg/dL (70-99); Potassium, Blood 3.5 mmol/L (3.5-5.5); Sodium, Blood 137 mmol/L (136-145)
--- NOTE | 2018-08-12 10:51 | NUR ---
Spiritual care visit conducted. Patient is sitting on a chair and alert. Patient's , Manuela, and daughter, Yumiko, are bedside. Manuela's request is for a brief visit that would include prayer. Manuela tells me the story of the events that led to patient's readmission to the Hospital and then I provide prayer. Patient and family respond well and show signs of reduced stress. I willc ontinue to remain available.
--- NOTE | 2018-08-12 19:10 | NUR ---
NO ACUTE CHANGES NOTED THIS SHIFT, PT WORKED WITH P.T., UP TO BEDSIDE CHAIR WITH SIMPLE TRANSFER, NO AMBULATION AT THIS TIME PT IS STILL VERY WEAK. WILL CONTINUE TO MONITOR AND REPORT TO ONCOMING RN
--- NOTE | 2018-08-13 04:36 | NUR ---
SHIFT SUMMARY PT RESTING QUIETLY HF, WATCHING TV AT START OF SHIFT. PT'S IN RM AT BS. SCATTERED BRUISING ON ENTIRE BODY, HEAD TO FOOT. WOUND TO L HEEL AND ANKLE. SM AMT OF REDNESS AND BREAK DOWN ON BUTTOCKS/COCCYX. BARRIER CREAM APPLIED. PT IN CONTACT ISO FOR ESBL IN URINE. ADMITTED FOR HYPOXIA, COPD, AND PNM. PER SHIFT REPORT, PT'S LUNGS IMPROVING. DIM/TIGHT, BUT NO WHEEZING OR RHONCHI. NO C/O SOB. PT ABLE TO SIT UP TO EOB WITH ASSIST. USES URINAL AT BS WITH ASSIST. CALL LT IN REACH.
[2018-08-13 04:57] LABS: BASOPHILS ABSOLUTE AUTO 0.01 K/mm3 (0.00-0.23); BASOPHILS PERCENT AUTO 0 % (0-2); EOSINOPHILS PERCENT AUTO 0 % (0-6); Hematocrit 29.3 % (37.0-53.0); Hemoglobin 9.1 g/dL (13.5-17.5); IMMATURE GRAN ABSOLUTE AUTO 0.48 K/mm3 (0.00-0.10); IMMATURE GRAN PERCENT AUTO 5 % (0-1); LYMPHOCYTES ABSOLUTE AUTO 0.74 K/mm3 (0.84-5.20); LYMPHOCYTES PERCENT AUTO 8 % (21-46); MONOCYTES ABSOLUTE AUTO 1.03 K/mm3 (0.16-1.47); MONOCYTES PERCENT AUTO 11 % (4-13); Mean Corpuscular HGB 29.4 pg (26.0-34.0); Mean Corpuscular HGB Conc 31.1 g/dL (31.5-36.5); NEUTROPHILS ABSOLUTE AUTO 7.46 K/mm3 (1.96-9.15); NEUTROPHILS PERCENT AUTO 77 % (41-73); Platelet Count 168 K/mm3 (150-400); RDW Coefficient Variation 17.3 % (11.7-14.2); RDW Standard Deviation 58.1 fL (35.1-46.3); Red Blood Cell Count 3.09 M/mm3 (4.30-5.90); White Blood Cell Count 9.72 K/mm3 (4.00-11.30)
[2018-08-13 04:58] LABS: Mean Corpuscular Volume 95 fL (80-100)
[2018-08-13 05:27] LABS: Albumin, Blood 2.3 g/dL (3.4-5.0); Blood Urea Nitrogen 27 mg/dL (8-24); Bun/Creatinine Ratio 24.3 (12.0-20.0); Calcium, Blood 8.8 mg/dL (8.5-10.1); Chloride, Blood 87 mmol/L (98-108); Creatinine, Blood 1.11 mg/dL (0.60-1.20); Glomerular Filtration Rate >60 (60-); Glucose, Blood 145 mg/dL (70-99); Phosphorus, Blood 3.8 mg/dL (2.5-4.9); Potassium, Blood 3.8 mmol/L (3.5-5.5); Sodium, Blood 137 mmol/L (136-145)
[2018-08-13 05:36] LABS: Anion Gap Unable to Calculate mmol/L (6-16); CO2, Blood >45 mmol/L (21-32)
--- NOTE | 2018-08-13 08:01 | NUR ---
PT LAYING IN BED SLEEPING IN ROOM, PT IS NOT REALLY TALKATIVE, DID SAY HES' NOT IN PAIN EXCEPT A BIT OF LOW BACK PAIN, ANSWERED ALL OTHER QUESTIONS. PT IS COOPERATIVE WITH CARE, FOLLOWS COMMANDS, LUNGS ARE VERY DIM ON LEFT SIDE ALL ESCALANTE, LESS DIM ON RIGHT ESCALANTE, BUT DIM, NO COUGH NOTED, IS ON 2 LITERS 02 VIA N/C, RESP EVEN AND UNLABORED, HRR, DISTANT SOUNDS, NO EDEMA NOTED, PPP+2, CAP REFILL <3SEC, VS STABLE, AFEBRILE, IV SITES ARE CLEAR AND PATENT, BTX4, HYOACTIVE ABD ROUND SOFT NONTENDER, VODES VIA URINAL, ALSO HAS ATTENDS IN PLACE, FOR INCONT, SKIN HAS MULTIPLE WOUNDS, DRESSING TO LEFT HEEL AND ANKLE, AND COCCYX HAS A PEA SIZE WOUND WITH OINTMENT IN PLACE, INSTRUCTED PT THAT HE NEEDS TO KEEP THE PRESSURE OFF OF IT, AND TURN EVERY TWO HRS, HE WAS AGREEABLE, WILL APPLY A DRESSING, AND FLOAT HEELS, MAEW, BUT LEGS ARE VERY WEAK, INSTRUCTED PT TO ALWAYS CALL BEFORE TRYING TO GET OOB, WHEN IS OUT OF ROOM WILL KEEP BED ALARM ACTIVATED. CALL LIGHT IN REACH.
--- NOTE | 2018-08-13 13:22 | NUR ---
REPORT GIVEN TO JO JONES, PT UP TO CHAIR FOR LUNCH, CALL LIGHT IN REACH.
--- NOTE | 2018-08-13 13:46 | NUR ---
Pt is in resting spoke to the and offered espiritual support and prayers/.
--- NOTE | 2018-08-13 19:20 | NUR ---
PT PLEASANT TODAY. AT BEDSIDE. PT DENIES PAIN. 1 ASST. PLACED MEPILEX ON COCCYX. RECOMMENDED PT TO KEEP FOOT ON PILLOW AND KEEP OFF BOTTOM. TO REMIND. NO OTHER CONCERNS AT THIS TIME. BED IN LOW POSITION, CALL LITE IN REACH, CALLS FOR REQUESTS.
[2018-08-13] MEDS ORDERED: HYDR1TAB94 PO (21:25)
--- NOTE | 2018-08-14 04:37 | NUR ---
SHIFT SUMMARY PT PLEASANT AND COOPERATIVE. AT FIRST DID NOT WANT CPAP ON BUT SHORTLY AFTER AGREED TO WEAR IT THROUGH THE NIGHT WHILE SLEEPING. 2 L O2 BLEEDIN. WHEN NOT ON CPAP PT ON 2 L O2 NC. AT BEDSIDE THROUGHOUT THE NIGHT, ASSISTS PT TO RESTROOM AND WITH ADLS. PT INCONTINENT AT TIMES. PULL UP ON. MEPILEX TO COCCYX, CLEAN/DRY/INTACT. REPORTS SMALL BEDSORE. PICTURES IN THE CHART. MEPILEX ALSO TO LEFT HEEL WHICH REPORTS ALSO HAS A ULCER BENEATH IT. BRUISING NOTED THROUGHOUT BODY, INCLUDING AYSHA ORBITAL. REPORTS THAT PT FELL FOUR TIMES BEFORE RETURNING TO THE HOSPITAL. PT REPORTED PAIN TO BACK. MEDICATED W/ TYLENOL. VSS. NO ACUTE CHANGES. WILL CONTINUE TO MONITOR AND REPORT TO DAY RN.
--- NOTE | 2018-08-14 08:30 | NUR ---
CHECKED WITH DR LEONILA HOLMAN CBG 92. OKAY GIVE INSULIN AT 30 U.
--- NOTE | 2018-08-14 09:00 | NUR ---
PT PLEASANT COOP A/O. DISCUSSED PRIOR EMPLOYMENT AT [employer]. AT BEDSIDE. H/R REG, NO MURMER NOTED. NO TELE. LUNGS CLEAR WITH LOW LEFT LOBE DIM. ON 2L O2, RESP EASY, UNLABORED. BT HYPO. PT STATES LAST BM 2 DAYS. VOIDS URINAL. SOME INCONT. BED IN LOW POSITIOIN, CALL LITE IN REACH, CALLS APPROP
--- NOTE | 2018-08-14 11:27 | NUR ---
Spiritual care visit conducted. Patient is sleeping and Manuela is bedside. Manuela states that patient is coming along slow but sure. Manuela admits to being "as good as can be expected." She also wanted to let patient continue to rest but thanked me for checking in on them.
--- NOTE | 2018-08-14 13:29 | NUR ---
Pt. is lying innbed and is doing much better encouraged both pt. and his spouse and offered prayers and spiritual support.
--- NOTE | 2018-08-14 13:50 | NUR ---
SPOKE TO DR KEEN, DISCUSSED NORCO PER PT REQ. OKAYED. TO PLACE 1500 FLUID RESTRICT. DISCUSSED PT OUTPATIENT STRESS TEST. SHE FEELS NOT GOOD TIME, WOULD LIKE TO POSTPONE. DONE
--- NOTE | 2018-08-14 18:09 | NUR ---
PT PLACED ON 1500 FLUID RESTRICT. NORCO APPROVED BY OUT PATIENT STRESS TEST WAS POSTPONED PER . PT STATES FEELS SOME BETTER. AT BEDSIDE. TRIED WEANING OFF O2. DROPPED TO 88 WITH NO O2. BOUNCED TO 88-92 ON 1L. PLACED BACK ON 2L. PT RESTING WELL. BED IN LOW POSITION, CALL LITE IN REACH, CALLS APPROP
--- NOTE | 2018-08-15 03:24 | NUR ---
SHIFT SUMMARY PATIENT HAD NO ACUTE CHANGES OBSERVED DURING THE SHIFT. AXO X3 AND ONE ASSIST TO BSC. REPORTED BACK PAIN X ONE AND RECEIVED NORCO PER EMAR. VSS/AFEBRILE. DENIES SOB AND N/V. PIV REMAINS INTACT. CBG 262. ON 2L O2 NC. USES CPAP AT NIGHT. IV ABX INFUSED. FLUID RESTRICTION 1,500 mL. PRESENT T/O SHIFT. CALL LIGHT IN REACH. BED IN LOWEST POSITION. WILL CONTINUE TO MONITOR UNTIL DAY SHIFT NURSE ASSUMES CARE.
[2018-08-15 11:34] LABS: Base Excess Venous 24.7 mmol/L; PCO2 Venous 46.6 mmHg (38-42); PO2 Venous 93.2 mmHg (38-42)
[2018-08-15 11:35] LABS: pH Blood Venous 7.61 (7.34-7.37)
[2018-08-15 11:44] LABS: Hemoglobin 10.3 g/dL (13.5-17.5); Mean Corpuscular HGB 28.9 pg (26.0-34.0); Mean Corpuscular HGB Conc 31.2 g/dL (31.5-36.5); Mean Platelet Volume 8.9 fL (9.1-12.4); Platelet Count 150 K/mm3 (150-400); RDW Coefficient Variation 18.3 % (11.7-14.2); RDW Standard Deviation 59.7 fL (35.1-46.3); Red Blood Cell Count 3.57 M/mm3 (4.30-5.90); White Blood Cell Count 13.55 K/mm3 (4.00-11.30)
[2018-08-15 11:47] LABS: Mean Corpuscular Volume 92 fL (80-100)
[2018-08-15 12:06] LABS: Albumin, Blood 2.5 g/dL (3.4-5.0); Anion Gap 4 mmol/L (6-16); Blood Urea Nitrogen 33 mg/dL (8-24); Bun/Creatinine Ratio 28.2 (12.0-20.0); CO2, Blood 42 mmol/L (21-32); Calcium, Blood 8.6 mg/dL (8.5-10.1); Chloride, Blood 87 mmol/L (98-108); Creatinine, Blood 1.17 mg/dL (0.60-1.20); Glomerular Filtration Rate >60 (60-); Glucose, Blood 159 mg/dL (70-99); Phosphorus, Blood 3.3 mg/dL (2.5-4.9); Potassium, Blood 3.9 mmol/L (3.5-5.5); Sodium, Blood 133 mmol/L (136-145)
[2018-08-15 12:17] LABS: BAND PERCENT MAN 1 % (0-8); BASOPHILS PERCENT MAN 0 % (0-2); EOSINOPHILS PERCENT MAN 0 % (0-6); LYMPHOCYTES % ATYPICAL MANUAL 2 % (0-0); LYMPHOCYTES ABSOLUTE MAN 0.67 K/mm3 (0.84-5.20); LYMPHOCYTES PERCENT MAN 3 % (21-46); MONOCYTES ABSOLUTE MAN 0.81 K/mm3 (0.16-1.47); MONOCYTES PERCENT MAN 6 % (4-13); MYELOCYTE ABSOLUTE MAN 0.13 K/mm3 (0.00-0.00); MYELOCYTE PERCENT MAN 1 % (0-0); NEUTROPHILS ABSOLUTE MAN 11.92 K/mm3 (1.96-9.15); SEG NEUTROPHILS PERCENT MAN 87 % (41-73); TOTAL CELLS COUNTED 100
--- NOTE | 2018-08-15 13:58 | NUR ---
Patient is lying in bed and alert with , Manuela, bedside. Manuela is very tearful and prefers not to talk about it but says that she is aloud to break down every once in awhile. I reaasure her that it is absolutely acceptable. She then asks if I could say a prayer and I gladly do so. I pray for the patient and for Manuela. They both respond well and thank me for the visit.
--- NOTE | 2018-08-15 15:24 | NUR ---
Attempted to visit with Pt. Dr Post currently visiting with Pt and . Palliative care will attempt visit at a later time.
--- NOTE | 2018-08-15 18:02 | NUR ---
PT AOX3 AND COOPERATIVE OF CARE. PT NOT FEELING GOOD PER PT STATEMENT. PT HAS NOT WANTED TO EAT MUCH TODAY. PH [phone] DR KEEN REQUESTED BIPAP TO BE USED WHILE PT SLEPT. SHE ALSO HAD A CONSULT REQUEST FOR DR HUDSON. PRESENT ALL DAY. PT HAS A RED SPOT ON HIS BOTTOM TREATED WITH CREAM. PT ABLE TO BE A ONE PERSON TRANSFER TO BEDSIDE COMODE OR CHAIR. NO SOB REPORTED. WILL CONTINUE TO MONITOR.
[2018-08-15 20:51] LABS: Source, Urine Voided
[2018-08-15 20:53] LABS: Bilirubin, Urine Neg (Neg); Blood, Urine 1+ (Neg); Glucose Qualitative, Urine Neg (Neg); Ketones, Urine Neg (Neg); Leukocyte Esterase, Urine 1+ (Neg); Nitrite, Urine Neg (Neg); Protein, Urine 1+ (Neg); Specific Gravity, Urine 1.015 (1.003-1.022); Urobilinogen, Urine 1+ (Normal)
[2018-08-15 21:00] LABS: Appearance, Urine Clear (Clear); Color, Urine Yellow (P-Yellow); Red Blood Cells, Urine 0-2 /hpf (0-2); Squamous Epithelial Cells Few /hpf (Few)
[2018-08-15 21:01] LABS: Bacteria Mod /hpf
--- NOTE | 2018-08-16 03:06 | NUR ---
SHIFT SUMMARY PATIENT HAD NO ACUTE CHANGES OBSERVED THIS SHIFT. AXO X3 AND ONE ASSIST TO BSC. URINE SAMPLE COLLECTED AND SENT TO LAB. CBG 351. REPORTED BACK PAIN X ONE AND RECEIVED NORCO PER EMAR. FLUID RESTRICTION 1,500 mL. ON 2L O2 NC AND USES CPAP AT NIGHT. ON CONTINUOUS PULSE OXIMETRY. SPOUSE PRESENT T/O SHIFT. DENIES SOB AND N/V. VSS/AFEBRILE. IV ABX INFUSED. CALL LIGHT IN REACH. BED IN LOWEST POSITION. WILL CONTINUE TO MONITOR UNTIL DAY SHIFT NURSE ASSUMES CARE.
[2018-08-16 06:29] LABS: BASOPHILS ABSOLUTE AUTO 0.01 K/mm3 (0.00-0.23); BASOPHILS PERCENT AUTO 0 % (0-2); EOSINOPHILS ABSOLUTE AUTO 0.02 K/mm3 (0.00-0.68); EOSINOPHILS PERCENT AUTO 0 % (0-6); Hematocrit 32.2 % (37.0-53.0); Hemoglobin 10.2 g/dL (13.5-17.5); IMMATURE GRAN ABSOLUTE AUTO 0.45 K/mm3 (0.00-0.10); IMMATURE GRAN PERCENT AUTO 5 % (0-1); LYMPHOCYTES ABSOLUTE AUTO 0.82 K/mm3 (0.84-5.20); LYMPHOCYTES PERCENT AUTO 10 % (21-46); MONOCYTES ABSOLUTE AUTO 1.09 K/mm3 (0.16-1.47); MONOCYTES PERCENT AUTO 13 % (4-13); Mean Corpuscular HGB 28.9 pg (26.0-34.0); Mean Corpuscular HGB Conc 31.7 g/dL (31.5-36.5); Mean Corpuscular Volume 91 fL (80-100); Mean Platelet Volume 9.5 fL (9.1-12.4); NEUTROPHILS ABSOLUTE AUTO 6.25 K/mm3 (1.96-9.15); NEUTROPHILS PERCENT AUTO 72 % (41-73); Platelet Count 133 K/mm3 (150-400); RDW Coefficient Variation 18.6 % (11.7-14.2); RDW Standard Deviation 59.4 fL (35.1-46.3); Red Blood Cell Count 3.53 M/mm3 (4.30-5.90); White Blood Cell Count 8.64 K/mm3 (4.00-11.30)
[2018-08-16 06:46] LABS: Anion Gap 4 mmol/L (6-16); Blood Urea Nitrogen 39 mg/dL (8-24); Bun/Creatinine Ratio 33.1 (12.0-20.0); CO2, Blood 44 mmol/L (21-32); Calcium, Blood 8.9 mg/dL (8.5-10.1); Chloride, Blood 87 mmol/L (98-108); Creatinine, Blood 1.18 mg/dL (0.60-1.20); Glomerular Filtration Rate >60 (60-); Glucose, Blood 176 mg/dL (70-99); Potassium, Blood 4.3 mmol/L (3.5-5.5); Sodium, Blood 135 mmol/L (136-145)
[2018-08-16 06:53] LABS: BAND PERCENT MAN 1 % (0-8); BASOPHILS PERCENT MAN 0 % (0-2); EOSINOPHILS PERCENT MAN 0 % (0-6); LYMPHOCYTES ABSOLUTE MAN 0.34 K/mm3 (0.84-5.20); LYMPHOCYTES PERCENT MAN 4 % (21-46); METAMYELOCYTE ABSOLUTE MAN 0.08 K/mm3 (0.00-0.00); METAMYELOCYTE PERCENT MAN 1 % (0-0); MONOCYTES ABSOLUTE MAN 0.77 K/mm3 (0.16-1.47); MONOCYTES PERCENT MAN 9 % (4-13); NEUTROPHILS ABSOLUTE MAN 7.43 K/mm3 (1.96-9.15); SEG NEUTROPHILS PERCENT MAN 85 % (41-73); TOTAL CELLS COUNTED 100
--- NOTE | 2018-08-16 16:57 | NUR ---
SHIFT SUMMARY THE PATIENT THIS SHIFT WITH CLEAR, BUT DIMINISHED LUNG SOUNDS, A&O X3 AND VITALS WNL. THE PATIENT'S SPOUSE IS IN THE ROOM WITH THE PATIENT. THE PATIENT BECAME CONFUSE DURING THE SHIFT, BUT PUTTING THE C-PAP MACHINE ON THE PATIENT SEEMED TO HELP. THE PATIENT'S DOCTOR ORDERED THE PATIENT UP TO HIS CHAIR FOR MEALS. THE PATIENT HAS WORKED WITH PT/OT THIS SHIFT. THE PATIENT IS RESTING AT THIS TIME, WILL CONTINUE TO MONITOR.
--- NOTE | 2018-08-17 06:28 | NUR ---
Rn summary: Patient is alert and oriented x3. Pt does seem lethargic. He is also KAW. Patient has rested most of the shift. He has not been able to tolerate the CPAP machine. He finds it uncomfortable and takes it off in his sleep. Pt is on 1 liter O2 via NC and he has left that on. Respiratory therapy is aware. Patient blood sugar at HS was 472. Sigtoni, the hospitlist, notified of blood sugar, humalog changed to high sliding scale. Pt given 18 units of humalog as ordered and 10 units of Lantus. Blood sugar rechecked at 2310 and blood sugar was 305. Pt has rested well. has slept on bed on floor. Pt has rested fairly well. He takes meds with water without difficulty. Pt did have a BM at the beginning of shift. Call light in reach. Will continue to monitor.
--- NOTE | 2018-08-17 11:57 | NUR ---
0900 PATIENT HAS REFUSED CARE FROM ME AND HAS REFUSED TO LET ME IN HIS ROOM. WHEN HIS BED ALARM GOES OFF AND I GO IN TO ANSWER IT AND HELP HE IMMEDITAELY STATES "I DO NOT NEED HELP FROM YOU, GO AWAY". HE HAS NOT LET ME IN HIS ROOM SINCE HIS HAS LEFT THIS MORNING. RN HAS BEEN NOTIFIED.
--- NOTE | 2018-08-17 16:52 | NUR ---
SHIFT SUMMARY THE PATIENT PRESENT THIS SHIFT BEING UPSET WITH EVERY ONE, STARTING WITH HIS SPOUSE AND SPREDING OUTWARD. THE YELLED AT ANT ONE GOING INTO HIS ROOM. THE PATIENT'S VITAL WNL, WITH 2 LITER OF O2, A&O X2, WITH LUNG SOUNDS THAT WERE CLEAR, BUT DIMINISHED. THE PATIENT SETTLE DOWN AFTER LUNCH AND HAVING A DISCUSSION WITH DR. ROBERTS. THE PATIENT'S SPOUSE RETURNED AT 1630 AND IS IN THE ROOM AT THIS TIME. WILL CONTINUE TO MONITOR.
--- NOTE | 2018-08-18 05:02 | NUR ---
Rn summary: Patient has been pleasant and cooperative. Pt wanted his own clothes on, states they were warmer. Pt has used his cpap from home and has tolerated it better, but has had it on and off all night. Pt is much less lethargic tonight. Pt has been up in the chair x2. More alert and appropriate, Pt blood sugar 222. Pt requested an eggcrate mattress to bed which has helped. Pt has walked to the BR with wifes assist, also uses urinal. Pt has taken no pain meds this shift. Call light in reach and at bedside.
[2018-08-18 05:51] LABS: Hematocrit 32.6 % (37.0-53.0); Hemoglobin 10.2 g/dL (13.5-17.5); Mean Corpuscular HGB 29.1 pg (26.0-34.0); Mean Corpuscular HGB Conc 31.3 g/dL (31.5-36.5); Mean Corpuscular Volume 93 fL (80-100); Mean Platelet Volume 9.9 fL (9.1-12.4); Platelet Count 139 K/mm3 (150-400); RDW Standard Deviation 63.7 fL (35.1-46.3); Red Blood Cell Count 3.51 M/mm3 (4.30-5.90); White Blood Cell Count 7.74 K/mm3 (4.00-11.30)
[2018-08-18 06:10] LABS: Albumin, Blood 2.5 g/dL (3.4-5.0); Anion Gap 5 mmol/L (6-16); Blood Urea Nitrogen 48 mg/dL (8-24); Bun/Creatinine Ratio 42.9 (12.0-20.0); CO2, Blood 40 mmol/L (21-32); Calcium, Blood 8.8 mg/dL (8.5-10.1); Chloride, Blood 91 mmol/L (98-108); Creatinine, Blood 1.12 mg/dL (0.60-1.20); Glomerular Filtration Rate >60 (60-); Glucose, Blood 403 mg/dL (70-99); Phosphorus, Blood 3.5 mg/dL (2.5-4.9); Potassium, Blood 4.2 mmol/L (3.5-5.5); Sodium, Blood 136 mmol/L (136-145)
[2018-08-18 06:11] LABS: BASOPHILS PERCENT MAN 0 % (0-2); EOSINOPHILS PERCENT MAN 0 % (0-6); LYMPHOCYTES ABSOLUTE MAN 0.61 K/mm3 (0.84-5.20); LYMPHOCYTES PERCENT MAN 8 % (21-46); MONOCYTES ABSOLUTE MAN 0.54 K/mm3 (0.16-1.47); MONOCYTES PERCENT MAN 7 % (4-13); NEUTROPHILS ABSOLUTE MAN 6.57 K/mm3 (1.96-9.15); SEG NEUTROPHILS PERCENT MAN 85 % (41-73); TOTAL CELLS COUNTED 100
--- NOTE | 2018-08-18 11:59 | NUR ---
Pt visit this AM. Pt resting in bed upon arrival with his present. Pt denies pain at this time. Pt is agitated and reports frustration due to being in the hospital. Pt requests no further conversation at this time. Instructed Pt if he develops any concerns or questions to contact palliative care. Palliative Care will remain available.
--- NOTE | 2018-08-18 14:05 | NUR ---
PATIENT DISCHARGE THE PATIENT LEFT THE HOSPITAL AMA [id number], AFTER HIS IV WAS REMOVED. THE PATIENT'S DOCTOR, DR. GARNETT WAS AWARE OF THE PATIENT LEAVING.
== END 2018-08-18 13:51 | disposition left against medical advice (07) | DRG 193 ==
LOC: ER 11:10 → MEDS 11:11
PROVIDERS: Emergency Medicine; Hospitalist; Internal Medicine; Internal Medicine Critical Care Medicine; ADMIT Internal Medicine
PROC: 5A09357 Assistance with Respiratory Ventilation, Less than 24 Consecutive Hours, Continuous Positive Airway Pressure (ICD-10-PCS; principal; 2018-08-11)
DX: J18.1 Lobar pneumonia, unspecified organism (principal); J96.21 Acute and chronic respiratory failure with hypoxia; J96.22 Acute and chronic respiratory failure with hypercapnia; G92 Toxic encephalopathy; E87.1 Hypo-osmolality and hyponatremia; I50.22 Chronic systolic (congestive) heart failure; B37.0 Candidal stomatitis; E87.3 Alkalosis; J44.1 Chronic obstructive pulmonary disease with (acute) exacerbation; J90 Pleural effusion, not elsewhere classified; J44.0 Chronic obstructive pulmonary disease with (acute) lower respiratory infection; I13.0 Hypertensive heart and chronic kidney disease with heart failure and stage 1 through stage 4 chronic kidney disease, or unspecified chronic kidney disease; I27.20 Pulmonary hypertension, unspecified; Z87.891 Personal history of nicotine dependence; K21.9 Gastro-esophageal reflux disease without esophagitis; E78.5 Hyperlipidemia, unspecified; G47.33 Obstructive sleep apnea (adult) (pediatric); I25.2 Old myocardial infarction; Z79.82 Long term (current) use of aspirin; E87.6 Hypokalemia; E11.65 Type 2 diabetes mellitus with hyperglycemia; W18.30XA Fall on same level, unspecified, initial encounter; T38.0X5A Adverse effect of glucocorticoids and synthetic analogues, initial encounter; Y92.9 Unspecified place or not applicable; I25.10 Atherosclerotic heart disease of native coronary artery without angina pectoris; I48.2 Chronic atrial fibrillation; D69.6 Thrombocytopenia, unspecified; Z79.4 Long term (current) use of insulin; N18.3 Chronic kidney disease, stage 3 (moderate); E11.22 Type 2 diabetes mellitus with diabetic chronic kidney disease; Z95.1 Presence of aortocoronary bypass graft; I48.0 Paroxysmal atrial fibrillation; I95.9 Hypotension, unspecified; I08.0 Rheumatic disorders of both mitral and aortic valves; F32.9 Major depressive disorder, single episode, unspecified; E11.40 Type 2 diabetes mellitus with diabetic neuropathy, unspecified; I67.9 Cerebrovascular disease, unspecified
CPT/HCPCS: 36415; 70450; 70551; 71045; 71046; 71250; 73502; 80048; 80053; 80069; 81001; 82140; 82803; 82947; 83605; 83735; 84145; 84439; 84481; 85025; 87081; 87086; 93005; 93010; 94640; 94660; 94664; 94667; 94760; 94762; 96365; 96367; 96375; 97110; 97162; 97165; 97530; 97535; 98960; 99285-25; A9270; A9270-GY; C9113; J0456; J0696; J1815; J1940; J2185; J2310; J7030; J7040; J7050; J7120; J7512

== ENCOUNTER 2018-08-29 08:11 | Inpatient (IN) | payer MEDICARE, OTHER ==
[~2018-08-29] VITALS: Ht 180.3 cm; Wt 92.7 kg
[~2018-08-29 08:11] MED LIST changes: -Aspirin EC81 MG PO; -DOCU100 PO; +FLUT1DIS5 INH; -Omeprazole20 M1 PO; -ROSU5 PO; -Ropinirole HCl1 MG PO
[2018-08-29 08:44] LABS: Hematocrit 28.1 % (37.0-53.0); Hemoglobin 8.8 g/dL (13.5-17.5); Mean Corpuscular HGB 27.9 pg (26.0-34.0); Mean Corpuscular HGB Conc 31.3 g/dL (31.5-36.5); Mean Platelet Volume 9.2 fL (9.1-12.4); Platelet Count 117 K/mm3 (150-400); RDW Standard Deviation 61.8 fL (35.1-46.3); Red Blood Cell Count 3.15 M/mm3 (4.30-5.90); White Blood Cell Count 4.85 K/mm3 (4.00-11.30)
[2018-08-29 08:45] LABS: Mean Corpuscular Volume 89 fL (80-100)
[2018-08-29 08:59] LABS: International Normalized Ratio 1.45; Prothrombin Time Results 14.9 Sec (9.7-11.5)
[2018-08-29 09:04] LABS: Alanine Aminotransfer (ALT/SGP 23 U/L (12-78); Albumin, Blood 1.9 g/dL (3.4-5.0); Albumin/Globulin Ratio 0.4 (0.8-1.8); Alk Phos 95 U/L (50-136); Anion Gap 6 mmol/L (6-16); Aspartate Aminotrans (AST/SGOT 16 U/L (12-37); Bilirubin, Total 0.8 mg/dL (0.1-1.0); Blood Urea Nitrogen 18 mg/dL (8-24); Bun/Creatinine Ratio 15.7 (12.0-20.0); CO2, Blood 34 mmol/L (21-32); Calcium, Blood 8.1 mg/dL (8.5-10.1); Chloride, Blood 95 mmol/L (98-108); Creatinine, Blood 1.15 mg/dL (0.60-1.20); Globulin, Blood 4.5 g/dL (2.2-4.0); Glomerular Filtration Rate >60 (60-); Glucose, Blood 153 mg/dL (70-99); Potassium, Blood 3.6 mmol/L (3.5-5.5); Sodium, Blood 135 mmol/L (136-145); Total Protein, Blood 6.4 g/dL (6.4-8.2)
[2018-08-29 09:09] LABS: BASOPHILS PERCENT MAN 0 % (0-2); EOSINOPHILS PERCENT MAN 0 % (0-6); LYMPHOCYTES ABSOLUTE MAN 0.63 K/mm3 (0.84-5.20); LYMPHOCYTES PERCENT MAN 13 % (21-46); METAMYELOCYTE ABSOLUTE MAN 0.04 K/mm3 (0.00-0.00); METAMYELOCYTE PERCENT MAN 1 % (0-0); MONOCYTES ABSOLUTE MAN 0.38 K/mm3 (0.16-1.47); MONOCYTES PERCENT MAN 8 % (4-13); NEUTROPHILS ABSOLUTE MAN 3.78 K/mm3 (1.96-9.15); SEG NEUTROPHILS PERCENT MAN 78 % (41-73); TOTAL CELLS COUNTED 100
[2018-08-29 10:54] LABS: Source, Urine Clean Catch
[2018-08-29 10:57] LABS: Appearance, Urine Clear (Clear); Bilirubin, Urine Neg (Neg); Blood, Urine 2+ (Neg); Color, Urine Yellow (P-Yellow); Glucose Qualitative, Urine Neg (Neg); Ketones, Urine Neg (Neg); Leukocyte Esterase, Urine Neg (Neg); Nitrite, Urine Neg (Neg); Protein, Urine 3+ (Neg); Specific Gravity, Urine 1.015 (1.003-1.022); Urobilinogen, Urine 1+ (Normal)
[2018-08-29 11:20] LABS: Bacteria Rare /hpf; Red Blood Cells, Urine 0-2 /hpf (0-2); Squamous Epithelial Cells Mod /hpf (Few); Transitional Epithelial Cells Few /hpf (0-Rare); White Blood Cells, Urine 0-2 /hpf (0-5)
[2018-08-29 11:21] LABS: Hyaline Casts 0-2 /lpf (0-2)
--- NOTE | 2018-08-29 12:48 | NUR ---
ER ADMIT ORIENTED TO ROOM AND FREQUENT ROUNDING; BED LOW AND IN LOCKED POSITION CALL LIGHT WITHIN REACH; SPOUSE ATTENTIVE AND AT BEDSIDE. C/O RIB PAIN REFUSED NARCOTIC PAIN MEDICATIONS. TYLENOL GIVEN.
--- NOTE | 2018-08-29 19:01 | NUR ---
FAMILY REPORTS SACRAL EXCORIATION. DR. HERNANDEZ SUGGESTED POSSIBLE PELVIC AND FX'S TO SPINE. REPORT GIVEN TO ROBERT BELLAMY TO DOCUMENT SACRAL AREA UPON NEXT ATTENDS CHANGE.
--- NOTE | 2018-08-29 22:26 | NUR ---
MOLDING LINE ASSISTANT REPORTED HR INTO THE 130'S AND BACK DOWN TO 114. PATIENT ON CONTINUOUS PULSE OXIMETRY. AXOX X 3 AND LISTENING TO HEADSET. CALL LIGHT IN REACH.
--- NOTE | 2018-08-30 02:16 | NUR ---
PATIENT SLEEPING. HR 107-114. PO METOPROLOL 50 MG STARTS IN AM.
--- NOTE | 2018-08-30 03:08 | NUR ---
SHIFT SUMMARY PATIENT HAD NO ACUTE CHANGES OBSERVED DURING THE SHIFT. AXO 3 AND BEDFAST WITH RIB FX AND HIP/SHOULDER/PELVIC PAIN. TAKES MEDICATION WHOLE WITH WATER. PIV REMAINS INTACT. CAMERA ENGINEER REPORTS [id number] WITH ONE RUN INTO THE 130'S AND BACK DOWN 107-115. CBG 317. ON CONTINUOUS PULSE OXIMETRY. NORCO GIVEN FOR PAIN MANAGEMENT. CALL LIGHT IN REACH. BED IN LOWEST POSITION. PERSONAL ITEMS IN REACH. WILL CONTINUE TO MONITOR UNTIL DAY SHIFT NURSE ASSUMES CARE.
[2018-08-30 04:49] LABS: BASOPHILS PERCENT AUTO 0 % (0-2); EOSINOPHILS ABSOLUTE AUTO 0.04 K/mm3 (0.00-0.68); EOSINOPHILS PERCENT AUTO 1 % (0-6); Hematocrit 26.7 % (37.0-53.0); Hemoglobin 8.3 g/dL (13.5-17.5); IMMATURE GRAN ABSOLUTE AUTO 0.36 K/mm3 (0.00-0.10); IMMATURE GRAN PERCENT AUTO 7 % (0-1); LYMPHOCYTES ABSOLUTE AUTO 0.67 K/mm3 (0.84-5.20); LYMPHOCYTES PERCENT AUTO 13 % (21-46); MONOCYTES PERCENT AUTO 12 % (4-13); Mean Corpuscular HGB 27.6 pg (26.0-34.0); Mean Corpuscular HGB Conc 31.1 g/dL (31.5-36.5); Mean Corpuscular Volume 89 fL (80-100); Mean Platelet Volume 9.6 fL (9.1-12.4); NEUTROPHILS ABSOLUTE AUTO 3.41 K/mm3 (1.96-9.15); NEUTROPHILS PERCENT AUTO 67 % (41-73); Platelet Count 127 K/mm3 (150-400); RDW Standard Deviation 61.2 fL (35.1-46.3); Red Blood Cell Count 3.01 M/mm3 (4.30-5.90); White Blood Cell Count 5.08 K/mm3 (4.00-11.30)
[2018-08-30 05:09] LABS: Anion Gap 4 mmol/L (6-16); Blood Urea Nitrogen 17 mg/dL (8-24); Bun/Creatinine Ratio 15.2 (12.0-20.0); CO2, Blood 36 mmol/L (21-32); Calcium, Blood 8.2 mg/dL (8.5-10.1); Chloride, Blood 94 mmol/L (98-108); Creatinine, Blood 1.12 mg/dL (0.60-1.20); Glomerular Filtration Rate >60 (60-); Glucose, Blood 118 mg/dL (70-99); Potassium, Blood 3.8 mmol/L (3.5-5.5); Sodium, Blood 134 mmol/L (136-145)
--- NOTE | 2018-08-30 11:33 | NUR ---
Patient is sitting in a chair and alert with , Manuela, present. Patient voiced his main concern is to be well enough to get home and sit out on his deck. Manuela asked prayer for her granddaughter who has cancer and is having surgery this day. I facilitated a life review, provided companionship, provided emotional support, normalized patient experience and provided prayer. Patient loves to tell stories but we had to slow him down often because his oxygen levels would drop and the alarm kept going off. Patient and Manuela responded well and showed signs of an elevated mood and increased hope.
[2018-08-30 17:20] LABS: Hematocrit 26.2 % (37.0-53.0); Hemoglobin 8.4 g/dL (13.5-17.5)
--- NOTE | 2018-08-30 18:49 | NUR ---
SHIFT SUMMARY PATIENT IS PLEASANT, HE HAD A DROP IN BLOOD PRESSURE TODAY. HE HAD A DROP AND WAS GIVEN TWO 500 ML BOLUS. HIS BLOOD PRESSURE HAS FINALLY COME UP. PATIENT HAS BEEN ASYMPTOMATIC AND IS CURRENTLY ON TELE.
[2018-08-31 05:04] LABS: BASOPHILS PERCENT AUTO 0 % (0-2); EOSINOPHILS ABSOLUTE AUTO 0.01 K/mm3 (0.00-0.68); EOSINOPHILS PERCENT AUTO 0 % (0-6); Hematocrit 24.8 % (37.0-53.0); IMMATURE GRAN ABSOLUTE AUTO 0.27 K/mm3 (0.00-0.10); IMMATURE GRAN PERCENT AUTO 5 % (0-1); LYMPHOCYTES ABSOLUTE AUTO 0.45 K/mm3 (0.84-5.20); LYMPHOCYTES PERCENT AUTO 8 % (21-46); MONOCYTES ABSOLUTE AUTO 0.62 K/mm3 (0.16-1.47); MONOCYTES PERCENT AUTO 11 % (4-13); Mean Corpuscular HGB 28.1 pg (26.0-34.0); Mean Corpuscular HGB Conc 32.3 g/dL (31.5-36.5); Mean Corpuscular Volume 87 fL (80-100); Mean Platelet Volume 9.1 fL (9.1-12.4); NEUTROPHILS PERCENT AUTO 77 % (41-73); Platelet Count 137 K/mm3 (150-400); RDW Coefficient Variation 18.6 % (11.7-14.2); RDW Standard Deviation 59.2 fL (35.1-46.3); Red Blood Cell Count 2.85 M/mm3 (4.30-5.90); White Blood Cell Count 5.75 K/mm3 (4.00-11.30)
[2018-08-31 05:29] LABS: Albumin, Blood 1.8 g/dL (3.4-5.0); Anion Gap 6 mmol/L (6-16); Blood Urea Nitrogen 18 mg/dL (8-24); Bun/Creatinine Ratio 16.4 (12.0-20.0); CO2, Blood 33 mmol/L (21-32); Calcium, Blood 7.9 mg/dL (8.5-10.1); Chloride, Blood 95 mmol/L (98-108); Glomerular Filtration Rate >60 (60-); Glucose, Blood 60 mg/dL (70-99); Phosphorus, Blood 3.9 mg/dL (2.5-4.9); Potassium, Blood 3.7 mmol/L (3.5-5.5); Sodium, Blood 134 mmol/L (136-145)
--- NOTE | 2018-08-31 06:30 | NUR ---
SHIFT SUMMARY PT SLEPT WELL T/O NIGHT. AOX4, FORGETFUL @TIMES & VERY [place]. VSS. TELE IN PLACE @ AFIB W/BB & HR 85 PER PCU CSR RETAIL. DENIES NAUSEA OR SOB. REPORTS 9/10 PAIN IN BILATERAL RIBS/L. SHOULDER & R HIP, MEDICATED 1X W/TYLENOL & 1X W/HYDROCODONE PER ORDERS. USED CALL LIGHT APPROPRIATELY T/O NIGHT, PLEASANT & COOPERATIVE W/CARE. WILL CONTINUE TO MONITOR.
[2018-08-31 12:22] LABS: Hemoglobin 8.2 g/dL (13.5-17.5)
--- NOTE | 2018-08-31 17:58 | NUR ---
SHIFT SUMMARY PATIENT IS PLEASANT, NO ACUTE CONCERNS. HIS BLOOD PRESSURE HAS COME UP TODAY MILDLY, AND PATIENT HAS BEEN VERY TIRED. HE DID WORK WITH PHYSICAL THERAPY BUT AWOKE MORE THROUGHOUT THE DAY. SPOKE WITH THE WIDFE ABOUT HIS CONDITION AND REASSURED HER THAT IT IS OKAY FOR HIM TO BE TIRED THROUHGOUT THE DAY HIS BODY IS GOING THROUGH A LOT OF STRESS. AT THIS TIME BP MEDICATIONS HAVE BEEN DISCONTINUED UNTIL FURTHER NOTICE. WILL ASSESS FOR CHANGES NEEDED.
[2018-09-01 05:43] LABS: BASOPHILS PERCENT AUTO 0 % (0-2); EOSINOPHILS ABSOLUTE AUTO 0.02 K/mm3 (0.00-0.68); EOSINOPHILS PERCENT AUTO 0 % (0-6); Hematocrit 27.2 % (37.0-53.0); Hemoglobin 8.4 g/dL (13.5-17.5); IMMATURE GRAN PERCENT AUTO 6 % (0-1); LYMPHOCYTES ABSOLUTE AUTO 0.78 K/mm3 (0.84-5.20); LYMPHOCYTES PERCENT AUTO 17 % (21-46); MONOCYTES ABSOLUTE AUTO 0.54 K/mm3 (0.16-1.47); MONOCYTES PERCENT AUTO 11 % (4-13); Mean Corpuscular HGB 27.5 pg (26.0-34.0); Mean Corpuscular HGB Conc 30.9 g/dL (31.5-36.5); Mean Corpuscular Volume 89 fL (80-100); Mean Platelet Volume 9.4 fL (9.1-12.4); NEUTROPHILS PERCENT AUTO 65 % (41-73); Platelet Count 169 K/mm3 (150-400); RDW Coefficient Variation 18.5 % (11.7-14.2); RDW Standard Deviation 60.7 fL (35.1-46.3); Red Blood Cell Count 3.06 M/mm3 (4.30-5.90); White Blood Cell Count 4.74 K/mm3 (4.00-11.30)
[2018-09-01 06:11] LABS: Albumin, Blood 1.8 g/dL (3.4-5.0); Anion Gap 6 mmol/L (6-16); Blood Urea Nitrogen 16 mg/dL (8-24); Bun/Creatinine Ratio 16.8 (12.0-20.0); CO2, Blood 34 mmol/L (21-32); Calcium, Blood 8.4 mg/dL (8.5-10.1); Chloride, Blood 96 mmol/L (98-108); Creatinine, Blood 0.95 mg/dL (0.60-1.20); Glomerular Filtration Rate >60 (60-); Glucose, Blood 126 mg/dL (70-99); Phosphorus, Blood 3.9 mg/dL (2.5-4.9); Sodium, Blood 136 mmol/L (136-145)
--- NOTE | 2018-09-01 06:21 | NUR ---
SHIFT SUMMARY PT PLEASANT AND COOPERATIVE. CONTINUES TO BE PAINFUL THROUGHOUT, MORE SO IN HIS BACK, FROM RECENT FALLS. MEDICATED W/ NORCO 1 TAB 5/325 X 2 THIS EVENING. BRUISING AND ABRASIONS SCATTERED THROUGHOUT FROM FALLS. PT WORE CPAP FOR MUCH OF THE EVENING. TELEMETRY UNIT ON. AFIB W/ A BBB IN THE LOW 100'S TO 110'S. NO ACUTE CHANGES THIS SHIFT. VSS. WILL CONTINUE TO MONITOR.
[2018-09-01 12:18] LABS: Hematocrit 26.5 % (37.0-53.0); Hemoglobin 8.2 g/dL (13.5-17.5)
--- NOTE | 2018-09-01 15:43 | NUR ---
TELE PT HAS HAD A RAPID HEART RATE OFF AND ON TODAY, USUALLY WITH ACTIVITY, PT HAS WORKED WITH PT/OT AND HIS HEART RATE WENT UP TO 150'S- 160'S, PT HAS DENIED ANY CHEST PAIN OR SOB, HEART RATE HAD GONE BACK DOWN TO 110'S WHEN AT REST, PT NOW AT REST AND HEART RATE UP TO 150-160, CALL TO DR ALEXANDER AND PT TO GO TO PCU ON A CARDIZEN GTT, WILL GIVE A BOLUS NOW, NOTIFIED LAN ENGINEER AND PCU CHEMICAL PUMPER
--- NOTE | 2018-09-01 16:06 | NUR ---
REPORT TO KATE RN, PT GOING TO PCU 7
--- NOTE | 2018-09-01 16:41 | NUR ---
TRANSFER TO PCU 7 REPORT RECEIVED. PT ARRIVED VIA RECLINER. AFIB. RATE 115 BPM. SBP 90'S. VSS. PT STATED THAT HIS LEFT SHOULDER IS SORE. BUT OTHERWISE OK. CONTINUE POT.
[2018-09-01 17:58] LABS: Hematocrit 25.7 % (37.0-53.0); Hemoglobin 8.1 g/dL (13.5-17.5)
--- NOTE | 2018-09-02 01:46 | NUR ---
Assumed care of pt at approx 1900, family at bedside, pt in no apparent sign of distress. Pt with VSS, A&Ox4, denies chest pain or pressure, denies SOB. Pt c/o pain to Bilat Ribs and low back from recent fall. Pt breathing easy and unlabored, maintaining o2 sats>90% on RA. Pt compliant with CPAP, able to manage CPAP by himself. Cardizem drip currently infusing, rate verified with ROBERT Rojas. No events on tele, rate remains between 80-110 in Afib. See shift assessment for detailed assessment. Will continue to monitor and update.
[2018-09-02 03:52] LABS: Hematocrit 25.7 % (37.0-53.0); Mean Corpuscular HGB 27.9 pg (26.0-34.0); Mean Corpuscular HGB Conc 31.1 g/dL (31.5-36.5); Mean Corpuscular Volume 90 fL (80-100); Mean Platelet Volume 8.9 fL (9.1-12.4); Platelet Count 203 K/mm3 (150-400); RDW Coefficient Variation 18.5 % (11.7-14.2); RDW Standard Deviation 59.7 fL (35.1-46.3); Red Blood Cell Count 2.87 M/mm3 (4.30-5.90); White Blood Cell Count 4.87 K/mm3 (4.00-11.30)
[2018-09-02 04:11] LABS: Albumin, Blood 1.8 g/dL (3.4-5.0); Anion Gap 5 mmol/L (6-16); Blood Urea Nitrogen 17 mg/dL (8-24); Bun/Creatinine Ratio 18.2 (12.0-20.0); CO2, Blood 33 mmol/L (21-32); Calcium, Blood 8.3 mg/dL (8.5-10.1); Chloride, Blood 96 mmol/L (98-108); Creatinine, Blood 0.94 mg/dL (0.60-1.20); Glomerular Filtration Rate >60 (60-); Glucose, Blood 125 mg/dL (70-99); Phosphorus, Blood 4.2 mg/dL (2.5-4.9); Potassium, Blood 4.5 mmol/L (3.5-5.5); Sodium, Blood 134 mmol/L (136-145)
[2018-09-02 05:07] LABS: BAND PERCENT MAN 2 % (0-8); BASOPHILS PERCENT MAN 0 % (0-2); EOSINOPHILS ABSOLUTE MAN 0.09 K/mm3 (0.00-0.68); EOSINOPHILS PERCENT MAN 2 % (0-6); LYMPHOCYTES ABSOLUTE MAN 0.58 K/mm3 (0.84-5.20); LYMPHOCYTES PERCENT MAN 12 % (21-46); MONOCYTES ABSOLUTE MAN 0.24 K/mm3 (0.16-1.47); MONOCYTES PERCENT MAN 5 % (4-13); NEUTROPHILS ABSOLUTE MAN 3.94 K/mm3 (1.96-9.15); SEG NEUTROPHILS PERCENT MAN 79 % (41-73); TOTAL CELLS COUNTED 100
--- NOTE | 2018-09-02 05:12 | NUR ---
Shift Summary No acute changes this shift. Pt remains alert and oriented, VSS, no apparent sign of distress. Breathing remains easy and unlabored. Pt denies chest pain or pressure. Cardizem drip continues to infuse with HR maintaining 80-100 in afib. Pt calls appropriately, makes needs known, uses urinal to void, pain has been managed with current ordered medications. Pt has been sleeping throughout this shift without complaints. No changes since initial assessment. No abnormal events on tele. Will continue to monitor.
--- NOTE | 2018-09-02 10:18 | NUR ---
CARDIZEM GTT PT RESTARTED ON METOPROLOL PER DR ALEXANDER. CARDIZEM GTT TURNED OFF AT 1018. HR PER TELE 80 BPM. CONTINUE POT.
[2018-09-02 12:23] LABS: Hematocrit 26.9 % (37.0-53.0); Hemoglobin 8.4 g/dL (13.5-17.5)
--- NOTE | 2018-09-03 01:00 | NUR ---
Assumed care of pt at approx 1900. at bedside, pt complaining of pain on the coccyx. per pt, states he has had pain for "weeks". reddness and excoriation seen upon assessment. Pt turned q2, educated on pressure sore prevention, mepilex in place and pt tx for pain per emar. VSS, breathing easy and unlabored, denies chest pain or pressure. Pt sleeping, call appropriately, call light in reach. See shift assessment for detailed assessment. Will continue to monitor and update as needed.
[2018-09-03 04:26] LABS: Hematocrit 25.4 % (37.0-53.0); Hemoglobin 7.9 g/dL (13.5-17.5); Mean Corpuscular HGB 27.8 pg (26.0-34.0); Mean Corpuscular HGB Conc 31.1 g/dL (31.5-36.5); Mean Corpuscular Volume 89 fL (80-100); Mean Platelet Volume 8.8 fL (9.1-12.4); Platelet Count 221 K/mm3 (150-400); RDW Coefficient Variation 18.6 % (11.7-14.2); RDW Standard Deviation 60.4 fL (35.1-46.3); Red Blood Cell Count 2.84 M/mm3 (4.30-5.90); White Blood Cell Count 4.95 K/mm3 (4.00-11.30)
[2018-09-03 04:42] LABS: Albumin, Blood 1.8 g/dL (3.4-5.0); Anion Gap 4 mmol/L (6-16); Blood Urea Nitrogen 17 mg/dL (8-24); Bun/Creatinine Ratio 17.5 (12.0-20.0); CO2, Blood 34 mmol/L (21-32); Calcium, Blood 8.5 mg/dL (8.5-10.1); Chloride, Blood 96 mmol/L (98-108); Creatinine, Blood 0.97 mg/dL (0.60-1.20); Glomerular Filtration Rate >60 (60-); Glucose, Blood 184 mg/dL (70-99); Phosphorus, Blood 4.4 mg/dL (2.5-4.9); Potassium, Blood 4.7 mmol/L (3.5-5.5); Sodium, Blood 134 mmol/L (136-145)
[2018-09-03 05:30] LABS: BAND PERCENT MAN 2 % (0-8); BASOPHILS PERCENT MAN 0 % (0-2); EOSINOPHILS PERCENT MAN 0 % (0-6); LYMPHOCYTES ABSOLUTE MAN 0.19 K/mm3 (0.84-5.20); LYMPHOCYTES PERCENT MAN 4 % (21-46); METAMYELOCYTE ABSOLUTE MAN 0.04 K/mm3 (0.00-0.00); METAMYELOCYTE PERCENT MAN 1 % (0-0); MONOCYTES ABSOLUTE MAN 0.14 K/mm3 (0.16-1.47); MONOCYTES PERCENT MAN 3 % (4-13); NEUTROPHILS ABSOLUTE MAN 4.55 K/mm3 (1.96-9.15); SEG NEUTROPHILS PERCENT MAN 90 % (41-73); TOTAL CELLS COUNTED 100
--- NOTE | 2018-09-03 05:36 | NUR ---
Notified Dr. Londono of hbg of 7.9. No new orders recieved at this time. Will continue to monitor.
--- NOTE | 2018-09-03 06:50 | NUR ---
Shift Summary Pt remains with VSS, afib on tele with rate controlled between 90-100. Pt very conversive, calls appropriately, call light in reach. No events on tele and in no apparent sign of distress. Pt signed blood consent this shift and this RN updated and educated pt on hgb. Dr Londono notifed of hbg drop to 7.9 and no new orders recived. Pt remains alert and oriented, no changes in mentation, no obvious signs of bleed. Pt denies increased pain with the exception of complaint of coccyx at begining of shift. Mepilex in place and pt turned q2. Pt medicated for pain r/t multiple rib fx from recent fall with medication per emar. Will continue to monitor and update as needed.
--- NOTE | 2018-09-03 08:00 | NUR ---
PT LAYING IN BED AWAKE A/OX3, PLEASANT AND COOPERATIVE WITH CARE, FOLLOWS COMMANDS WELL, DENIES PAIN AT THIS TIME, BUT IS NOT MOVING AT THIS TIME. LUNGS ARE CLEAR DIM IN BASES, RESP EVEN AND UNLABORED, IT DOES HURT TO TAKE A DEEP BREATH AND COUGH, HE IS CURRENTLY ON R/A, HRIRR, TELE IN PLACE RUNNIGN AFIB WITH BBB PER MONITOR, SEE STRIP, NO EDEMA NOTED, PPP+1, CAP REFILL <3SEC, VS STABLE AFEBRILE, IV SITE IS CLEAR AND PATENT, BTX4, ABD ROUND SOFT NONTENDER, INCONT OF URINE, ATTENDS IN PLACE, SKIN IS VERY FRAIL, WITH SCATTERED BRUISING TO F/A'S, TERE MCDONNELL, CALL LIGHT IN REACH.
--- NOTE | 2018-09-03 11:36 | NUR ---
Spiritual care visit conducted. Patient is lying in bed and alert with spouse, Manuela and grandson beba bedside. Patient isexcited that he is getting stronger everyday. Manuela asks for prayer which I gladly provide. I will continue to be available to patient and family.
--- NOTE | 2018-09-03 12:38 | NUR ---
PT HAS BEEN TRANSFERED TO MEDICAL FLOOR, REPORT TO RUBIA JONES. PT LEFT VIA BED WITH MANAGER BASKETBALL AND NURSE IN ATTENDENCE, ALL MEDICATIONS AND MEDS WENT WITH PT.
--- NOTE | 2018-09-03 18:10 | NUR ---
SHIFT SUMMARY- PT PCU TRANSFER TODAY. PT C/O RIB PAIN. MEDS GIVEN PER EMAR. PT DENIES SOB. RESP E/U ON RA. DENIES N/V. FAMILY AT BEDSIDE. NO OTHER SIGNIFICANT CHANGES THIS SHIFT.
[2018-09-04 04:54] LABS: Hematocrit 27.6 % (37.0-53.0); Hemoglobin 8.3 g/dL (13.5-17.5); Mean Corpuscular HGB 27.1 pg (26.0-34.0); Mean Corpuscular HGB Conc 30.1 g/dL (31.5-36.5); Mean Corpuscular Volume 90 fL (80-100); Mean Platelet Volume 8.8 fL (9.1-12.4); Platelet Count 273 K/mm3 (150-400); RDW Coefficient Variation 18.8 % (11.7-14.2); RDW Standard Deviation 61.8 fL (35.1-46.3); Red Blood Cell Count 3.06 M/mm3 (4.30-5.90); White Blood Cell Count 5.47 K/mm3 (4.00-11.30)
--- NOTE | 2018-09-04 05:55 | NUR ---
83 year old MAle who was at [facility] for hx of falls and recieving rehab when he fell resulting in multiple bilat rib fxs and pneumothorax. he is currently on room air without complaints. he has own cpap but has not been using tonight. PT has multiple contusions and lacerations, he has multple bruises and scabs. No s/sx of active bleeding or co acute distress. blood glucose over 300 and recieved 9 units of regular insulin. had hs snack. on lantus in sulin 10 units. resting quietly.fall precautions continue.
--- NOTE | 2018-09-04 11:09 | NUR ---
HE IS SLEEPING NOW. HE ATE LITTLE BREAKFAST. HE SAID HE DIDN'T FEEL LIKE EATING MUCH THIS MORNING. HIS BREAKFAST DID INCLUDE 2/3 OF A GLUCERNA THOUGH. HE ASKED AND RECEIVED TYLENOL FOR HIS PAIN. HIS HAS BEEN AT BEDSIDE. SHE IS PACKING THINGS OUT TO THE CAR BECAUSE [facility] IS SUPPOSE TO DISCHARGE TO REHAB THIS AFTERNOON.
[2018-09-04] MEDS ORDERED: NYST100000 PO (12:51)
[2018-09-04] MEDS ORDERED: INSULANPEN SC (12:59)
[2018-09-04] MEDS ORDERED: INSR10I SC (13:00)
--- NOTE | 2018-09-04 13:08 | NUR ---
HE IS DRESSED AND SITTING UP IN THE CHAIR. HIS DRESSED HIM. I REMOVED BOTH KNEE DRESSINGS AND A COCCYX DRESSING. L KNEE ABRAISION CLEANED AND RE-DRESSED WITH A FOAM DRESSING. R KNEE LEFT UNCOVERED. COCCYX CLEANED AND NOT COVERED SO [facility] CAN ASSESS IT. THERE IS 1 SHALLOW OPENING AND IT IS 1/2 A DIME SIZE. HIS POINTED OUT TO ME THAT HE PROBABLY HAS THRUSH STARTING IN HIS MOUTH. I LOOKED WITH A FLASHLIGHT. LOOKS MILD SO FAR. RECEIVED AN ORDER FOR NYSTATIN S&S. HE ONLY TOOK A FEW BITES OF MAC AND CHEESE AND CUSTARD FOR LUNCH.
--- NOTE | 2018-09-04 15:22 | NUR ---
DISCHARGED TO [facility] FOR MORE REHAB AT 1400. HE TRANSFERRED AND TOOK FEW STEPS WELL WITH SBA AND A WALKER. ALL BELONGINGS WITH .
== END 2018-09-04 14:00 | DRG 184 ==
LOC: ER 08:11 → MEDS 08:12 → PCU 12:13 → MEDS 12:14 → PCU 09-01 16:25 → MEDS 09-03 12:31 → ENPENDDIS 09-04 09:36 → MEDS 09-04 14:00
PROVIDERS: Family Medicine; Internal Medicine; Physician Assistant; ADMIT Surgery
DX: S22.43XA Multiple fractures of ribs, bilateral, initial encounter for closed fracture (principal); S32.591A Other specified fracture of right pubis, initial encounter for closed fracture; I50.22 Chronic systolic (congestive) heart failure; E87.1 Hypo-osmolality and hyponatremia; S32.9XXA Fracture of unspecified parts of lumbosacral spine and pelvis, initial encounter for closed fracture; J94.2 Hemothorax; J90 Pleural effusion, not elsewhere classified; W19.XXXA Unspecified fall, initial encounter; Y92.129 Unspecified place in nursing home as the place of occurrence of the external cause; I25.10 Atherosclerotic heart disease of native coronary artery without angina pectoris; J44.9 Chronic obstructive pulmonary disease, unspecified; E78.5 Hyperlipidemia, unspecified; I48.91 Unspecified atrial fibrillation; G47.33 Obstructive sleep apnea (adult) (pediatric); Z86.73 Personal history of transient ischemic attack (TIA), and cerebral infarction without residual deficits; Z79.01 Long term (current) use of anticoagulants; Z79.82 Long term (current) use of aspirin; F17.210 Nicotine dependence, cigarettes, uncomplicated; E11.40 Type 2 diabetes mellitus with diabetic neuropathy, unspecified; D50.0 Iron deficiency anemia secondary to blood loss (chronic)
CPT/HCPCS: 36415; 70450; 71260; 72125; 72170; 73030; 73523; 74177; 80048; 80053; 80069; 81001; 82947; 83735; 85014; 85018; 85025; 85027; 85610; 85730; 87077; 87086; 87186; 94640; 94760; 94762; 97110; 97116; 97162; 97165; 97530; 97535; 99285-25; A9270; A9270-GY; J1815; J3010; J7040; Q9967

== ENCOUNTER 2018-10-21 10:59 | Inpatient (IN) | payer MEDICARE, OTHER ==
[~2018-10-21] VITALS: Ht 180.3 cm; Wt 99.8 kg
[~2018-10-21 10:59] MED LIST changes: +INSR10I SC; +INSULANPEN SC; +NYST100000 PO
[2018-10-21 11:33] LABS: Hematocrit 36.2 % (37.0-53.0); Hemoglobin 10.4 g/dL (13.5-17.5); Mean Corpuscular HGB 24.5 pg (26.0-34.0); Mean Corpuscular HGB Conc 28.7 g/dL (31.5-36.5); Mean Corpuscular Volume 85 fL (80-100); Platelet Count 126 K/mm3 (150-400); RDW Coefficient Variation 18.1 % (11.7-14.2); RDW Standard Deviation 55.1 fL (35.1-46.3); Red Blood Cell Count 4.24 M/mm3 (4.30-5.90); White Blood Cell Count 5.54 K/mm3 (4.00-11.30)
[2018-10-21 11:57] LABS: Troponin I 0.023 ng/mL (0.000-0.040)
[2018-10-21 11:58] LABS: Alanine Aminotransfer (ALT/SGP 15 U/L (12-78); Albumin, Blood 2.8 g/dL (3.4-5.0); Albumin/Globulin Ratio 0.7 (0.8-1.8); Alk Phos 118 U/L (50-136); Anion Gap 5 mmol/L (6-16); Aspartate Aminotrans (AST/SGOT 11 U/L (12-37); Blood Urea Nitrogen 17 mg/dL (8-24); Bun/Creatinine Ratio 16.3 (12.0-20.0); CO2, Blood 38 mmol/L (21-32); Calcium, Blood 8.8 mg/dL (8.5-10.1); Chloride, Blood 92 mmol/L (98-108); Creatinine, Blood 1.04 mg/dL (0.60-1.20); Globulin, Blood 4.3 g/dL (2.2-4.0); Glomerular Filtration Rate >60 (60-); Glucose, Blood 288 mg/dL (70-99); Potassium, Blood 3.6 mmol/L (3.5-5.5); Sodium, Blood 135 mmol/L (136-145); Total Protein, Blood 7.1 g/dL (6.4-8.2)
[2018-10-21 12:58] LABS: BAND PERCENT MAN 1 % (0-8); BASOPHILS PERCENT MAN 0 % (0-2); EOSINOPHILS PERCENT MAN 0 % (0-6); LYMPHOCYTES ABSOLUTE MAN 0.66 K/mm3 (0.84-5.20); LYMPHOCYTES PERCENT MAN 12 % (21-46); MONOCYTES ABSOLUTE MAN 0.05 K/mm3 (0.16-1.47); MONOCYTES PERCENT MAN 1 % (4-13); NEUTROPHILS ABSOLUTE MAN 4.81 K/mm3 (1.96-9.15); SEG NEUTROPHILS PERCENT MAN 86 % (41-73); TOTAL CELLS COUNTED 100
[2018-10-21] MEDS ORDERED: TRAZ100 PO (13:23)
[2018-10-21] MEDS ORDERED: ESCI10 PO (13:24)
[2018-10-21] MEDS ORDERED: Multiple Vitam1 EAC1 PO (13:28)
[2018-10-21] MEDS ORDERED: HYDR1TAB94 PO (13:30)
[2018-10-21] MEDS ORDERED: ROSU5 PO (13:32)
[2018-10-21] MEDS ORDERED: Ferrous Sulfat325 M2 PO (13:34)
[2018-10-21] MEDS ORDERED: DOCU100 PO (13:51)
[2018-10-21] MEDS ORDERED: Accuneb0.63 MG/3 NEB (13:53)
[2018-10-21] MEDS ORDERED: PRESERVISION A1 EACH PO (13:54)
--- NOTE | 2018-10-21 18:49 | NUR ---
SHIFT SUMMARY PT ALERT AND ORIENTED. VS STABLE. O2 SATS REMAIN ABOVE 90% ON 3L NC. PT STATES BREATHING IS LESS LABORED. HR AFIB IN THE 70'S. PT DENIES PAIN. AT BEDSIDE. WILL CONTINUE TO MONITOR AND REPORT TO ONCOMING RN. CALL LIGHT IN REACH.
--- NOTE | 2018-10-22 07:25 | NUR ---
PCU NOC SHIFT SUMMARY PATIENT ALERT AND ORIENTED X4-KLAWOCK. PATIENT STANDS AND TRANSFERS TO BEDSIDE COMMODE WELL. PATIENT REMAINS IN NSR T/O SHIFT IN THE 80'S. PATIENT ON HOME DOSE OF OXYGEN AT 2-3 LPM VIA NASAL CANNUAL AND WORE CPAP T/O SHIFT. AT BEDSIDE. PATIENT REPORTS CHRONIC ONGOING BACK PAIN - RELIEVED WITH MEDICATION PER EMAR. REPORTED OFF TO CHRIS RODRIGUEZ RN.
--- NOTE | 2018-10-22 14:47 | NUR ---
Patient is sitting on a chair and alert. Patient tells me he is doing much better than when he came in to the hospital. Patient then tells me many stories of his life, his fall at [facility] and his current support system. Patient is a great shade matcher and entertained us both for a quit some time. Patient's then entered the patient's room and we talked about her survival tips for being a patient's spouse (which is insightful and humorous). I listened empathically, provided companionship and provided prayer. Patient and spouse voiced appreciation for my visit. I will continue to remain available to patient and family.
--- NOTE | 2018-10-22 16:32 | NUR ---
SHIFT SUMMARY PT A&Ox4. [place], FORGETFUL AT TIMES. PT UP IN CHAIR FOR MEALS, 1 PERSON ASSIST TO BATHROOM. PT SPOUSE AT BEDSIDE, ASSIST WITH ADLS. PT REPORTS BACK PAIN THIS AM, DENIES NEEDS FOR MEDICATION, ENCOURAGED MOVEMENT TO ASSIST WITH PAIN. PT REPORTS SOB WITH EXERTION, >92% ON 2L O2 VIA NC, TITRATED FROM 3L THIS AM. PT REFUSING TO EAT FOOD, SPOUSE BROUGHT IN FOOD FOR PATIENT. TELE AFIB 60-70'S. VSS, NO OTHER ACUTE CHANGES NOTED DURING SHIFT. WILL CONTINUE TO MONITOR. UNTIL REPORT GIVEN TO ONCOMING RN.
--- NOTE | 2018-10-23 05:56 | NUR ---
SHIFT SUMMARY PT SLEEPING COMFORTABLY IN ROOM AT THIS TIME. NO ACUTE CHANGES IN STATUS T/O NIGHT. PT SLEPT WELL W/ SPOUSE AT BEDSIDE. RESP EVEN UNLABORED ON 3L NC W/ SATS >92%. DENIES OTHER NEEDS. PT MEDICATED FOR PAIN ONCE PER EMAR. CALL LIGHT IN REACH.
--- NOTE | 2018-10-23 07:20 | NUR ---
PT AND APPEAR TO BE SLEEPING, DID NOT WAKE FOR BEDSIDE REPORT. NO S/S OF DISTRESS, CONT TO MONITOR.
--- NOTE | 2018-10-23 11:01 | NUR ---
DR CARLIN IN EARLIER, STATES PT TO DC HOME. AWAITING ORDERS. PACKING UP BELONGINGS AND PREPING PT
--- NOTE | 2018-10-23 12:19 | NUR ---
Patient's spouse, Manuela meets me in the hallway just outside patient's room and tells me that the patient is going to be discharged today. She states that patient is resting at the moment but she wanted to thank me for visiting with the patient the other day. We discuss home care after discharge and how she is thankful for being able to take him home.
--- NOTE | 2018-10-23 13:26 | NUR ---
PT IS DISCHARGED HOME. TO TRANSPORT. DISCHARGE INSTRUCTIONS DISCUSSED WITH PT AND . EDUCATION GIVEN REGARDING NEW MED. STATES PT ALL READY ON XARELTO AT HOME. ALL QUESTIONS ANSWERED. PT DISCHARGED HOME IN STABLE CONDITION. PT TAKEN TO VEHICLE VIA WHEELCHAIR BY AID.
== END 2018-10-23 13:26 | disposition home or self-care (01) | DRG 291 ==
LOC: ER 10:59 → PCU 13:57
PROVIDERS: Emergency Medicine; ADMIT Internal Medicine
DX: I13.0 Hypertensive heart and chronic kidney disease with heart failure and stage 1 through stage 4 chronic kidney disease, or unspecified chronic kidney disease (principal); J96.01 Acute respiratory failure with hypoxia; I50.43 Acute on chronic combined systolic (congestive) and diastolic (congestive) heart failure; I47.2 Ventricular tachycardia; J44.9 Chronic obstructive pulmonary disease, unspecified; R54 Age-related physical debility; Z74.09 Other reduced mobility; I25.10 Atherosclerotic heart disease of native coronary artery without angina pectoris; G31.84 Mild cognitive impairment of uncertain or unknown etiology; I48.2 Chronic atrial fibrillation; D64.9 Anemia, unspecified; D69.6 Thrombocytopenia, unspecified; I25.5 Ischemic cardiomyopathy; F32.9 Major depressive disorder, single episode, unspecified; N40.0 Benign prostatic hyperplasia without lower urinary tract symptoms; E11.42 Type 2 diabetes mellitus with diabetic polyneuropathy; E11.22 Type 2 diabetes mellitus with diabetic chronic kidney disease; N18.9 Chronic kidney disease, unspecified; Z95.1 Presence of aortocoronary bypass graft; Z99.81 Dependence on supplemental oxygen; Z88.1 Allergy status to other antibiotic agents; Z79.82 Long term (current) use of aspirin; Z79.4 Long term (current) use of insulin; Z79.899 Other long term (current) drug therapy; I25.2 Old myocardial infarction; Z87.891 Personal history of nicotine dependence
CPT/HCPCS: 36415; 71046; 80053; 82947; 83735; 83880; 84484; 85025; 93005; 93010; 94640; 94660; 94762; 96374; 97162; 97530; 99285-25; A9270; A9270-GY; J1650; J1940

== ENCOUNTER 2018-11-06 14:35 | Inpatient (IN) | payer MEDICARE, OTHER ==
[~2018-11-06] VITALS: Ht 185.4 cm; Wt 95.7 kg
[~2018-11-06 14:35] MED LIST changes: +DOCU100 PO; +PRESERVISION A1 EACH PO; +ROSU5 PO
[2018-11-06] MEDS ORDERED: TORSE20 PO (15:04)
[2018-11-06] MEDS ORDERED: Spironolactone25 MG PO (15:04)
[2018-11-06 15:30] LABS: Hemoglobin 9.1 g/dL (13.5-17.5); Mean Corpuscular HGB 24.5 pg (26.0-34.0); Mean Corpuscular HGB Conc 29.4 g/dL (31.5-36.5); Mean Corpuscular Volume 84 fL (80-100); Mean Platelet Volume 9.1 fL (9.1-12.4); Platelet Count 182 K/mm3 (150-400); RDW Coefficient Variation 17.9 % (11.7-14.2); RDW Standard Deviation 53.5 fL (35.1-46.3); Red Blood Cell Count 3.71 M/mm3 (4.30-5.90); White Blood Cell Count 6.69 K/mm3 (4.00-11.30)
[2018-11-06 15:51] LABS: Alanine Aminotransfer (ALT/SGP 15 U/L (12-78); Albumin/Globulin Ratio 0.7 (0.8-1.8); Alk Phos 108 U/L (50-136); Anion Gap 9 mmol/L (6-16); Aspartate Aminotrans (AST/SGOT 10 U/L (12-37); Bilirubin, Total 0.9 mg/dL (0.1-1.0); Blood Urea Nitrogen 24 mg/dL (8-24); Bun/Creatinine Ratio 25.3 (12.0-20.0); CO2, Blood 37 mmol/L (21-32); Calcium, Blood 9.2 mg/dL (8.5-10.1); Chloride, Blood 86 mmol/L (98-108); Creatinine, Blood 0.95 mg/dL (0.60-1.20); Globulin, Blood 4.1 g/dL (2.2-4.0); Glomerular Filtration Rate >60 (60-); Glucose, Blood 380 mg/dL (70-99); Potassium, Blood 3.8 mmol/L (3.5-5.5); Sodium, Blood 132 mmol/L (136-145); Total Protein, Blood 7.1 g/dL (6.4-8.2); Troponin I <0.015 ng/mL (0.000-0.040)
[2018-11-06 15:51] LABS: Base Excess Venous 17.6 mmol/L; Bicarbonate Venous 39.6 mmol/L (24.0-30.0); PCO2 Venous 54.5 mmHg (38-42); PO2 Venous 69.7 mmHg (38-42); pH Blood Venous 7.49 (7.34-7.37)
[2018-11-06 16:04] LABS: BAND PERCENT MAN 2 % (0-8); BASOPHILS PERCENT MAN 0 % (0-2); EOSINOPHILS PERCENT MAN 0 % (0-6); LYMPHOCYTES ABSOLUTE MAN 0.73 K/mm3 (0.84-5.20); LYMPHOCYTES PERCENT MAN 11 % (21-46); METAMYELOCYTE ABSOLUTE MAN 0.33 K/mm3 (0.00-0.00); METAMYELOCYTE PERCENT MAN 5 % (0-0); MONOCYTES PERCENT MAN 3 % (4-13); NEUTROPHILS ABSOLUTE MAN 5.41 K/mm3 (1.96-9.15); SEG NEUTROPHILS PERCENT MAN 79 % (41-73); TOTAL CELLS COUNTED 100
[2018-11-06] MEDS ORDERED: Aspirin EC81 MG PO (16:49)
[2018-11-06] MEDS ORDERED: Ventolin/Prove6.7 GM INH (16:49)
[2018-11-06] MEDS ORDERED: TRAZ100 PO (16:50)
[2018-11-06] MEDS ORDERED: Omeprazole20 M1 PO (16:52)
[2018-11-06] MEDS ORDERED: NOVOLIN 70100 UNIT/1 SC (16:54)
[2018-11-06] MEDS ORDERED: DULERA 200 MCG/13 GM INH (16:55)
[2018-11-06] MEDS ORDERED: METO50ER PO (16:55)
[2018-11-06] MEDS ORDERED: Accuneb0.63 MG/3 NEB (16:56)
[2018-11-06] MEDS ORDERED: Ropinirole HCl1 MG PO (16:57)
[2018-11-06] MEDS ORDERED: DOCU100 PO (16:57)
[2018-11-06] MEDS ORDERED: NITR.4SL SL (16:58)
[2018-11-06] MEDS ORDERED: VITAMIN C125 MG PO (16:58)
[2018-11-06] MEDS ORDERED: ROSU5 PO (16:59)
[2018-11-06] MEDS ORDERED: ACET325 PO (16:59)
[2018-11-06] MEDS ORDERED: XARELTO1 EACH PO (17:00)
[2018-11-06] MEDS ORDERED: LISI5 PO (17:00)
[2018-11-06] MEDS ORDERED: THERA1 EACH PO (17:55)
[2018-11-06] MEDS ORDERED: AREDS PO (17:59)
--- NOTE | 2018-11-07 05:20 | NUR ---
Shift Summary No acute changes this shift. Pt remains alert and oriented, remains on BIPAP this shift with no changes to settings. Pt maintaining >95% with BIPAP settings as follows: 16/8, 10, 30%. Pt sleeping throughout shift, turned q2. Pressure ulcer noticed upon admission on coccyx, dressing in place. No events on tele, VSS, no apparent sign of distress. No further changes from initial admission assessment. Pt able to use call light to make needs known, pt's in room with pt this shift, sleeping. Pt's is primary caregiver. pt denies pain this shift. Pt incont at times this shift, attends in place and dry at this time. Pt able to call for urinal during admission time, but more incont with sleep. Pt uses walker at home. Will continue to monitor and provide care per orders until shift change.
[2018-11-07 05:58] LABS: Hematocrit 27.5 % (37.0-53.0); Hemoglobin 8.1 g/dL (13.5-17.5); Mean Corpuscular HGB 24.6 pg (26.0-34.0); Mean Corpuscular HGB Conc 29.5 g/dL (31.5-36.5); Mean Corpuscular Volume 84 fL (80-100); Mean Platelet Volume 9.2 fL (9.1-12.4); Platelet Count 139 K/mm3 (150-400); RDW Coefficient Variation 17.8 % (11.7-14.2); RDW Standard Deviation 53.7 fL (35.1-46.3); Red Blood Cell Count 3.29 M/mm3 (4.30-5.90); White Blood Cell Count 4.36 K/mm3 (4.00-11.30)
[2018-11-07 06:17] LABS: Anion Gap 6 mmol/L (6-16); Blood Urea Nitrogen 22 mg/dL (8-24); Bun/Creatinine Ratio 21.6 (12.0-20.0); CO2, Blood 42 mmol/L (21-32); Calcium, Blood 8.8 mg/dL (8.5-10.1); Chloride, Blood 88 mmol/L (98-108); Creatinine, Blood 1.02 mg/dL (0.60-1.20); Glomerular Filtration Rate >60 (60-); Glucose, Blood 267 mg/dL (70-99); Potassium, Blood 3.6 mmol/L (3.5-5.5); Sodium, Blood 136 mmol/L (136-145)
--- NOTE | 2018-11-07 06:28 | NUR ---
Hbg Hbg dropped to 8.1 overnight. No signs of active bleeding, pt with no compliants of increasing SOB, no c/o pain. Pt remains alert and oriented this shift, VSS. design assembler, Brenda Tanner aware. Will continue to monitor and update day RN of lab.
[2018-11-07 09:40] LABS: Percent Saturation 15.7 % (20.0-50.0)
--- NOTE | 2018-11-07 17:16 | NUR ---
attemtpted supportive vist with . She was tearfull and showing significant stress. She left to get hem some food. Review of her stress with chaplian. Review of patient with nursing.
--- NOTE | 2018-11-07 17:30 | NUR ---
[facility]ual Care intial note: I met with Manuela Gibbons, at bedside. She was laying in home air-mattress and awake. She admits she feels exhausted. She tells me she is "tired of fighting everyone." When asked to clarify, she says it is the staff here that have been trying "to tell me what needs to happen and what to do." She was tearful. RN reports that pt is easily overwhemled by multiple visitors being animated and trying to get him to eat/drink more. Manuela states that if "they" try to limit visitors she will "fight" to keep this from happening. She believes Librado needs to surrounded by those who love him. Manuela says she could use a prayer, but moments later declines saying "I just need to rest." Supervisor [employer] will remain available.
--- NOTE | 2018-11-07 18:33 | NUR ---
END OF SHIFT; FAMILY AT BEDSIDE DURING DAY. PT VERY SLEEPY AND NOT WANTING TO EAT. FAMILY INSISTING ON EATING AND DRINKING. AMANDABATSHEVA DEVRIESIA DOES SWALLOW STUDY FOR PATIENT AND ORDER FOR MECHANICAL SOFT. NO STRAWS AND STRAIGHT UP IN CHAIR FOR PILLS AND DRINKING. FAMILY MEMBERS ARE CONCERNED THAT PATIENT IS SLEEPING TOO MUCH AND WANT HIM TO WAKE AND TALK WITH THEM. BRADLEY GIBBS GOES TO ROOM TO SPEAK WITH SPOUSE. SPOUSE INSISTS THAT PT BE AWAKE TO SPEAK WITH FAMILY AND IS CONCERNED WE ARE LETTING HIM SLEEP TOO MUCH. SPOUSE GOES OUT TO GET PATEINT AN EGG OMELETE (HE WON'T EAT YOUR FOOD) ATTEMPTS AT EDUCATION ARE MET WITH RESISTANCE. AT THIS TIME PATIENT IS SITTING STRAIGHT UP IN BED SNORING RESPS ARE HEARD. CALL LIGHT IN REACH.
--- NOTE | 2018-11-07 21:08 | NUR ---
Diminished lungs sounds noted on right middle and lower lobes, when pt rolled onto left side, little air movement heard in the right bases, o2 saturations dropped to 86%. Pt rolled back to fowlers, o2 improved within moments back to 95%. Pt states he feels more SOB with rolling onto left side than when he rolls onto right side. Incentive spirometer given to pt, pt educated and instructed on use and importance. Pt remains stable on 2L NC. Will continue monitoring lung sounds, work of breathing, o2 demand. Will notify of any changes this shift.
[2018-11-08 04:16] LABS: BASOPHILS ABSOLUTE AUTO 0.01 K/mm3 (0.00-0.23); BASOPHILS PERCENT AUTO 0 % (0-2); EOSINOPHILS ABSOLUTE AUTO 0.02 K/mm3 (0.00-0.68); EOSINOPHILS PERCENT AUTO 0 % (0-6); Hematocrit 29.2 % (37.0-53.0); Hemoglobin 8.5 g/dL (13.5-17.5); IMMATURE GRAN ABSOLUTE AUTO 0.42 K/mm3 (0.00-0.10); IMMATURE GRAN PERCENT AUTO 7 % (0-1); LYMPHOCYTES ABSOLUTE AUTO 0.82 K/mm3 (0.84-5.20); LYMPHOCYTES PERCENT AUTO 13 % (21-46); MONOCYTES ABSOLUTE AUTO 0.72 K/mm3 (0.16-1.47); MONOCYTES PERCENT AUTO 12 % (4-13); Mean Corpuscular HGB 24.9 pg (26.0-34.0); Mean Corpuscular HGB Conc 29.1 g/dL (31.5-36.5); Mean Corpuscular Volume 86 fL (80-100); Mean Platelet Volume 9.5 fL (9.1-12.4); NEUTROPHILS ABSOLUTE AUTO 4.23 K/mm3 (1.96-9.15); NEUTROPHILS PERCENT AUTO 68 % (41-73); Platelet Count 158 K/mm3 (150-400); RDW Coefficient Variation 18.3 % (11.7-14.2); RDW Standard Deviation 55.2 fL (35.1-46.3); Red Blood Cell Count 3.41 M/mm3 (4.30-5.90); White Blood Cell Count 6.22 K/mm3 (4.00-11.30)
[2018-11-08 04:44] LABS: Alanine Aminotransfer (ALT/SGP 13 U/L (12-78); Albumin, Blood 2.7 g/dL (3.4-5.0); Albumin/Globulin Ratio 0.7 (0.8-1.8); Alk Phos 92 U/L (50-136); Anion Gap 6 mmol/L (6-16); Aspartate Aminotrans (AST/SGOT 12 U/L (12-37); Bilirubin, Total 0.8 mg/dL (0.1-1.0); Blood Urea Nitrogen 24 mg/dL (8-24); Bun/Creatinine Ratio 22.4 (12.0-20.0); CO2, Blood 42 mmol/L (21-32); Calcium, Blood 8.8 mg/dL (8.5-10.1); Chloride, Blood 91 mmol/L (98-108); Creatinine, Blood 1.07 mg/dL (0.60-1.20); Globulin, Blood 3.8 g/dL (2.2-4.0); Glomerular Filtration Rate >60 (60-); Glucose, Blood 206 mg/dL (70-99); Magnesium, Blood 2.1 mg/dL (1.6-2.4); Potassium, Blood 3.2 mmol/L (3.5-5.5); Sodium, Blood 139 mmol/L (136-145); Total Protein, Blood 6.5 g/dL (6.4-8.2)
--- NOTE | 2018-11-08 06:08 | NUR ---
Shift Summary No acute changes this shift. VSS. Pt slept without BIPAP this night, maintaining saturations >94% on 2L NC. No changes to mentation, remains alert and oriented. Pt able to use call light to make needs known. Turned q2 per orders. Pt able to assist with turns. Pt requesting [place] 5/325 tab order for today d/t chronic pain. This pt and pt's states he takes norco at home for chronic pain. No events on tele this shift. No apparent sign of distress. Pt breathing easy and unlabored, shallow at times. Pt with no increasing oxygen demand this shift. Coccyx wound cleaned and redressed this shift with mepilex in place. Pearl patent and draining. Lasix gtt continues to infuse per orders. Edema improving. See shift assessment for detailed assessment. No changes from initial assessment. Will continue to monitor until day RN assumes care.
--- NOTE | 2018-11-08 08:57 | NUR ---
AM NOTE. ASSUMED CARE OF PT APROX 0700, PT IS A&Ox4, PT'S IS AT THE BEDSIDE. PT IS CURRENTLY ON HIS HOME DOSE OF O2 AT 2L NC WITH O2 SATS >90%. PT'S GONZÁLES IS PATENT AND DRAINING TO GRAVITY. PT'S L/S CLEAR IN THE UPPER LOBES, COARSE IN THE RIGHT MID AND DIM IN THE BASES. PT IS ENCOURAGED TO USE INSENTIVE SPIROMETER. PT HAS TRACE EDEMA NOTED TO THE BLE AND GENERALIZED EDEMA TO HIS TORSO/ABD AREA. LASIX GTT WAS D/C'D AND PT WAS PUT ON PO DIURETICS. PT WAS HAVING HARD TIME SWALLOWING HIS PILLS, SPEECH THERAPIST AT THE BEDSIDE AND EVALUATED THE PT. PT NOW TAKES HIS PILLS WHOLE IN APPLE SAUCE. PT/OT IS TO SEE PATIENT TODAY. CALL LIGHT IN REACH WILL CONTINUE TO MONITOR.
--- NOTE | 2018-11-08 10:59 | NUR ---
Brief supportive visit with . Offered her brief periods of repite today. She was leary of help and terfull stating she is staying with him. Patient high risk for failure of plan and readmission. Will review with pt\ot speech on supporting on care home prognosis.
--- NOTE | 2018-11-08 11:14 | NUR ---
Patient is sitting up in bed and alert with patient's , Manuela, bedside. Patient openly shares about his medical issues, about his family and about his health goals. Manuela is tearful during my visit and is deeply concerned about her . I listen empathically, encourage self care, reinforce helpful attitudes and practices and provide prayer. Patient and Manuela respond well and display evidence of an elevated mood.
--- NOTE | 2018-11-08 17:04 | NUR ---
PT UPDATE... THIS RN WAS IN THIS PT'S ROOM CHECKING VITALS AND ROUNDING. PT WAS LAYING IN BED AND DROWSY. PT'S AND OTHER VISITOR IN THE ROOM HAD GONE TO THE CAFE TO GET THE PT COFFEE. THIS RN NOTED THAT THERE WAS A STRAW IN THE COFFEE CUP THAT HAD BEEN OFFERED TO THE PT BY THE . THIS RN KINDLY REMINDED THE PT AND OF THE SWALLOWING PRECAUTIONS OF NO STRAWS FOR THIS PT PER SPEECH THERAPIST WHO HAD BEEN IN TO SEE THE PT THIS MORNING. THE PT'S AGRESSIVELY STATED: "I KNOW AND I DON'T CARE, I AM TAKING RESPONSIBILITY FOR HIM IF HE WANTS COFFEE WITH A STRAW HE CAN HAVE COFFEE WITH A STRAW!" THIS RN ATTEMPTED TO EDUCATE THE PT'S AND PT ABOUT ASPIRATION AND THE RISK OF ASPIRATION PNEUMONIA, PT'S WAS NOT INTRESTED IN LISTENING TO THE EDUCATION AT THIS TIME, SHE REPEATED WITH RAISED VOICE : "IF HE WANTS COFFEE WITH A STRAW HE WILL GET COFFEE WITH A STRAW!" WILL CONTINUE TO MONITOR.
--- NOTE | 2018-11-08 19:35 | NUR ---
SHIFT SUMMARY. NO ACUTE CHANGES NOTED THIS SHIFT. PT DID NOT USE BIPAP AT ALL THIS SHIFT. PT HAS BEEN STABLE ON 2L NC. PT WAS UP IN THE CHAIR FOR 2 HOURS TODAY W/1 PERSON SBA. PT'S RESPIRATORY EFFORT WAS EASY AND MINIMAL T/O THIS SHIFT. PT'S AT THE BEDSIDE. CALL LIGHT IN REACH, BED IS LOCKED AND LOW WILL CONTINUE TO MONITOR UNTIL REPORT IS GIVEN TO ONCOMING RN.
[2018-11-09 04:37] LABS: Anion Gap 5 mmol/L (6-16); Blood Urea Nitrogen 21 mg/dL (8-24); Bun/Creatinine Ratio 20.4 (12.0-20.0); CO2, Blood 40 mmol/L (21-32); Calcium, Blood 8.5 mg/dL (8.5-10.1); Chloride, Blood 93 mmol/L (98-108); Creatinine, Blood 1.03 mg/dL (0.60-1.20); Glomerular Filtration Rate >60 (60-); Glucose, Blood 186 mg/dL (70-99); Sodium, Blood 138 mmol/L (136-145)
--- NOTE | 2018-11-09 05:29 | NUR ---
Shift Summary Pt with no acute changes this shift. VSS. Pt alternates between 2L NC and CPAP/AVAP settings on 30% fio2. Pt with o2 saturtions >94%. No events on tele. Pt remains alert and oriented this shift. pt sleeply at times, arousable with touch and verbal command. Pt answers questions appropriately. No changes from initial assessment. Pt continues to void in urinal. No incontinent episodes this shift. No BM this shift. Pt takes pills whole with applesauce. Will continue to monitor until change of shift and day RN assumes care.
--- NOTE | 2018-11-09 12:57 | NUR ---
NOTE PT UP IN CHAIR AT BEDSIDE. CALL LIGHT WITHIN REACH. PT TRANSFERED WITH 1 ASSIST. WEAK BUT STEADY. PT AFFECT IS FLATTER THAN NORMAL. HE ISN'T REALLY INTERACTING WITH STAFF OR TELLING US JANNY JOKES. MAKING POOR EYE CONTACT. IS MONOPOLIZING CONVERSATIONS. NOT ALLOWING HIM TO ANSWER. WAS A BLE TO SPEND SOME TIME WITH HIM ALONE WHEN OTHER FAMILY ARRIVED. ASKED HIM DIRECT QUESTIONS ABOUT HOME SAFETY, PERSONAL SAFETY. HE DID NOT ANSWER THE QUESTIONS BUT STARTED TO CRY. HE DID NOT DENY THAT HIS WAS SAFE FOR HIM. PHYSICAL THERAPY WAS AT BEDSIDE DURING THE CONVERSATION. CONTINUE POT.
--- NOTE | 2018-11-09 21:26 | NUR ---
ASSUMED CARE OF PATIENT AT APPROXIMATELY 1900 FROM KATE Capone RN. PATIENT ALERT AND ORIENTED X4; SLOW TO RESPOND AT TIMES; AND PATIENT REPORT PATIENT HAS TREMOR IN ARMS; FINE TREMOR NOTED; PATIENT ABLE TO TAKE SIPS OF WATER BY HIMSELF; APPEARS VERY CONCERNED ABOUT TREMOR. TALKS OVER PATIENT AT TIMES. PATIENT REPORTED PAIN TONIGHT IN RIGHT HIP AND REQUESTED PRN NORCO AT BEDTIME. PATIENT REPORTS N/T IN FEET THAT IS CHRONIC; DENIES DIZZINESS OR NAUSEA. PATIENT MEDICAL NO TELE STATUS; OXYGEN SATURATION ABOVE 90% ON 2LPM VIA NC OR BIPAP WHEN ASLEEP. PIV S/L. DYSPNEA WITH EXCERTION; REPORTED SBA TO RECLINER DURING DAY. PATIENT URINATES INTO URINAL FREQUENTLY; ATTENDS IN PLACE FOR INCONTINENCE. PATIENT CURRENTLY RESTING IN BED; CALL LIGHT IN REACH; BED IN LOWEST POSISTION; BED ALARM ON; WILL CONTINUE TO MONITOR AND ASSESS UNTIL END OF SHIFT.
[2018-11-10 04:09] LABS: BASOPHILS ABSOLUTE AUTO 0.02 K/mm3 (0.00-0.23); BASOPHILS PERCENT AUTO 0 % (0-2); EOSINOPHILS ABSOLUTE AUTO 0.04 K/mm3 (0.00-0.68); EOSINOPHILS PERCENT AUTO 1 % (0-6); Hematocrit 30.5 % (37.0-53.0); Hemoglobin 8.6 g/dL (13.5-17.5); IMMATURE GRAN ABSOLUTE AUTO 0.42 K/mm3 (0.00-0.10); IMMATURE GRAN PERCENT AUTO 9 % (0-1); LYMPHOCYTES ABSOLUTE AUTO 1.01 K/mm3 (0.84-5.20); LYMPHOCYTES PERCENT AUTO 20 % (21-46); MONOCYTES ABSOLUTE AUTO 0.58 K/mm3 (0.16-1.47); MONOCYTES PERCENT AUTO 12 % (4-13); Mean Corpuscular HGB 25.2 pg (26.0-34.0); Mean Corpuscular HGB Conc 28.2 g/dL (31.5-36.5); Mean Platelet Volume 9.1 fL (9.1-12.4); NEUTROPHILS ABSOLUTE AUTO 2.89 K/mm3 (1.96-9.15); NEUTROPHILS PERCENT AUTO 58 % (41-73); Platelet Count 155 K/mm3 (150-400); RDW Coefficient Variation 18.5 % (11.7-14.2); RDW Standard Deviation 57.4 fL (35.1-46.3); Red Blood Cell Count 3.41 M/mm3 (4.30-5.90); White Blood Cell Count 4.96 K/mm3 (4.00-11.30)
[2018-11-10 04:20] LABS: Mean Corpuscular Volume 89 fL (80-100)
[2018-11-10 04:30] LABS: Anion Gap 4 mmol/L (6-16); Blood Urea Nitrogen 20 mg/dL (8-24); Bun/Creatinine Ratio 19.2 (12.0-20.0); CO2, Blood 39 mmol/L (21-32); Calcium, Blood 8.9 mg/dL (8.5-10.1); Chloride, Blood 94 mmol/L (98-108); Creatinine, Blood 1.04 mg/dL (0.60-1.20); Glomerular Filtration Rate >60 (60-); Glucose, Blood 217 mg/dL (70-99); Magnesium, Blood 2.3 mg/dL (1.6-2.4); Potassium, Blood 4.2 mmol/L (3.5-5.5); Sodium, Blood 137 mmol/L (136-145)
--- NOTE | 2018-11-10 06:50 | NUR ---
PATIENT SLEPT ABOUT NINE HOURS LAST NIGHT; USED URINAL IN BED. NO OTHER ACUTE CHANGES TO REPORT. WILL CONTINUE TO MONITOR AND ASSESS UNTIL END OF SHIFT.
--- NOTE | 2018-11-10 13:43 | NUR ---
NOTE PT ALERT. UP IN CHAIR MOST OF THE MORNING. PT MORE INTERACTIVE AND SMILING. IMPROVEMENT IN APPETITE NOTED. VSS. PT COLOR BETTER. HE HAS PINK CHEEKS. DENIED PAIN OR DISCOMFORT. NOTED A SMALL INDENT ON THE BRIDGE OF HIS NOSE FROM CPAP MASK. TALKED WITH RESP. CARE AND GOT A GEL PAD FOR HIS NOSE. AT BEDSIDE. SON HERE FOR SUPPORT. CONTINUE POT.
--- NOTE | 2018-11-10 21:59 | NUR ---
ASSUMED CARE OF PATIENT AT APPROXIMATELY 1900 FROM KATE Capone RN. PATIENT ALERT AND ORIENTED X4; SLOW TO RESPOND AT TIMES; FINE TREMOR NOTED; PATIENT REPORTED PAIN TONIGHT IN RIGHT HIP AND REQUESTED PRN NORCO AT BEDTIME. PATIENT REPORTS N/T IN FEET THAT IS CHRONIC; DENIES DIZZINESS OR NAUSEA. PATIENT MEDICAL NO TELE STATUS; OXYGEN SATURATION ABOVE 90% ON 2LPM VIA NC OR BIPAP WHEN ASLEEP. PIV S/L. DYSPNEA WITH EXCERTION; REPORTED SBA TO RECLINER DURING DAY. PATIENT URINATES INTO URINAL FREQUENTLY; ATTENDS IN PLACE FOR INCONTINENCE. PATIENT HAS MULTIPLE FAMILY MEMBERS THROUGHOUT THE DAY. PATIENT CURRENTLY RESTING IN BED; CALL LIGHT IN REACH; BED IN LOWEST POSISTION; BED ALARM ON; WILL CONTINUE TO MONITOR AND ASSESS UNTIL END OF SHIFT.
[2018-11-11 04:31] LABS: Anion Gap 4 mmol/L (6-16); Blood Urea Nitrogen 20 mg/dL (8-24); Bun/Creatinine Ratio 18.9 (12.0-20.0); CO2, Blood 38 mmol/L (21-32); Calcium, Blood 8.7 mg/dL (8.5-10.1); Chloride, Blood 96 mmol/L (98-108); Creatinine, Blood 1.06 mg/dL (0.60-1.20); Glomerular Filtration Rate >60 (60-); Glucose, Blood 211 mg/dL (70-99); Potassium, Blood 4.2 mmol/L (3.5-5.5); Sodium, Blood 138 mmol/L (136-145)
[2018-11-11 05:16] LABS: PCO2 Arterial 62.6 mmHg (35-45); PO2 Arterial 86.7 mmHg (80-100); pH Blood Arterial 7.37 (7.35-7.45)
--- NOTE | 2018-11-11 05:34 | NUR ---
PATIENT WORE BIPAP MASK FOR ABOUT FIVE HOURS LAST NIGHT; REFUSED TO WEAR IT LONGER. PATIENT SLEPT APPROXIMATLEY EIGHT HOURS LAST NIGHT. NO OTHER ACUTE CHANGES TO REPORT. WILL CONTINUE TO MONITOR AND ASSESS UNTIL END OF SHIFT.
--- NOTE | 2018-11-11 08:46 | NUR ---
REQUEST COMFORT CARE PT APPROACHED LAST EVENING AND DISCUSSED BRIEFLY WITH ROSLYN KISER. THIS MORNING FLORENTIN FOUND THIS NURSE IN THE HALLWAY TO REQUEST TO TAKE HIM HOME. SHE STATED," I JUST WANT HIS SUFFERING TO STOP. I WISH HE WOULD TODAY." COORDINATED WITH PALATIVE CARE, ICU TECH AND DR HASSAN FOR A COMFORT CARE CONFERENCE LATER THIS MORNING WITH FAMILY. FLORENTIN REQUESTED A CODE STATUS CHANGE TO "DNR". CONTINUE POT.
--- NOTE | 2018-11-11 09:51 | NUR ---
ROUTINE CARE PT REFUSED MORNING VITAL SIGNS, MEDICATION INCLUDING INSULIN. HE WANTS TO BE "LEFT ALONE". TALKED WITH PT WITHOUT FAMILY PRESENT. DIEGO IS WELL AWARE THAT HE IS DIEING. HE AGREED TO GOING HOME WITH HOSPICE IS A GOOD IDEA. CONTINUE POT.
--- NOTE | 2018-11-12 04:35 | NUR ---
PT WORE BIPAP STARTING AT 2200 UNTIL 17. PT WAS ON 2L NC FROM THEN UNTIL 020 WHEN HE WENT BACK ON BIPAP UNTIL 429.
--- NOTE | 2018-11-12 06:33 | NUR ---
SHIFT SUMMARY PT HAS REMAINED AOX4 THROUGHOUT SHIFT. VSS. MODERATELY COOPERATIVE WITH CARE. PT NOT WANTING TO BE TURNED MULTIPLE TIMES THROUGHOUT THE NIGHT WHEN STAFF IN TO TURN. PT DID TAKE NIGHT MEDS ORDERED. PT ANTICIPATING ON BEGINNING HOSPICE CARE TODAY. DISCUSSED WITH PT AND SPOUSE RIGHTS AND RESPONSIBILITIES OF CARE AND ABILITY TO REFUSE CERTAIN ORDERS AND RECOMMENDATIONS. PT CONTINUES TO USE THE URINAL AT BEDSIDE WITH ASSIST FROM SPOUSE WHO REMAINS AT BEDSIDE. PT HAS WORN BIPAP FOR A TOTAL OF 4 HOURS THROUGHOUT THE NIGHT WHILE SLEEPING, REMOVING FOR BREAKS EVERY TWO HOURS AND PLACING 2L VIA NASAL CANNULA ON. O2 SATS HAVE REMAINED >90% THROUGHOUT THE NIGHT ON 2L VIA N/C OR ON BIPAP. NO OTHER CHANGES NOTED FROM INITIAL ASSESSMENT. WILL CONTINUE TO MONITOR AND REPORT TO ONCOMING SHIFT RN. BED IN LOW POSITION CALL LIGHT IN REACH.
--- NOTE | 2018-11-12 18:20 | NUR ---
SHIFT SUMMARY PT ALERT AND ORIENTED. VS STABLE. O2 SATS REMAIN ABOVE 90% ON 2L NC. BP STABLE. PLAN FOR PT TO GO HOME WITH HOSPICE TOMORROW. PT AND FAMILY AWARE AND WORKING WITH PENS AND PENCILS DIPPER TO MAKE SURE HOME IS READY. WILL CONTINUE TO MONITOR AND REPORT TO ONCOMING RN. CALL LIGHT IN REACH. FAMILY AT BEDSIDE.
--- NOTE | 2018-11-13 06:43 | NUR ---
SHIFT SUMMARY PT HAS REMAINED AOX4 THROUGHOUT SHIFT. VSS. COOPERATIVE WITH CARE. PT CONTINUES TO USE URINAL WITH SPOUSE ASSISTANCE AT BEDSIDE AND CALLS FOR STAFF TO EMPTY. O2 SATS HAVE REMAINED >90% ON 1-2L VIA NASAL CANNULA. PT WORE VISION BIPAP FOR APPROXIMATELY TWO HOURS WHILE SLEEPING LAST NIGHT. PT REQUESTING TO NOT USE PILLOWS TO TURN THROUGHOUT THE NIGHT. NO OTHER CHANGES NOTED. WILL CONTINUE TO MONITOR AND REPORT TO ONCOMING SHIFT RN. BED IN LOW POSITION, CALL LIGHT IN REACH.
--- NOTE | 2018-11-13 09:53 | NUR ---
Pt visit this AM. Pt resting in bed with his eyes closed and appears comfortable. No S/S of distress at this time. Spoke with Pt's Manuela and discussed plan. Manuela reports no concerns at this time. Palliative Care will remain available.
[2018-11-13] MEDS ORDERED: CLOT10 SS (12:24)
[2018-11-13] MEDS ORDERED: BASAGLAR K100 UNIT/1 SC (12:25)
[2018-11-13] MEDS ORDERED: LORA1 PO (12:28)
[2018-11-13] MEDS ORDERED: MORP20L PO (12:30)
--- NOTE | 2018-11-13 12:46 | NUR ---
DISCHARGE INSTRUCTIONS PROVIDED TO PATIENT AND . EDUCATION PROVIDED ON NEW MEDICATIONS TO HELP WITH COMFORT. PLAN FOR PT TO GO HOME WITH HOSPICE. PT AWAITING TRANSPORT. ALL QUESTIONS ANSWERED.
--- NOTE | 2018-11-13 12:56 | NUR ---
Patient is in the discharge process but wanted a visit. Patient's Manuela, leaves the room so I can talk with patient alone. Patient tells me that he is going home on hospice and he is concerned about Manuela. He states that she she doesn't handle these things well. He explains that he is not worried about it and that he doesn't want to be on this [facility] feeling the way he does now, but he also doesn't want to go in the next couple days either. We talk about the best use of the time he has in terms of how to communicate value and love to those who are in his [place] of influence. When Manuela returns I say a prayer and encourage them both about celebrating each moment they have together.
== END 2018-11-13 12:55 | disposition hospice, home (50) | DRG 291 ==
LOC: ER 14:35 → PCU 17:35
PROVIDERS: Emergency Medicine; Hospitalist; Internal Medicine; Internal Medicine Critical Care Medicine; Nurse Practitioner Acute Care; ADMIT Internal Medicine
DX: I13.0 Hypertensive heart and chronic kidney disease with heart failure and stage 1 through stage 4 chronic kidney disease, or unspecified chronic kidney disease (principal); J96.21 Acute and chronic respiratory failure with hypoxia; I50.43 Acute on chronic combined systolic (congestive) and diastolic (congestive) heart failure; J96.22 Acute and chronic respiratory failure with hypercapnia; E87.3 Alkalosis; B37.0 Candidal stomatitis; L89.152 Pressure ulcer of sacral region, stage 2; G47.33 Obstructive sleep apnea (adult) (pediatric); I27.20 Pulmonary hypertension, unspecified; F32.9 Major depressive disorder, single episode, unspecified; K21.9 Gastro-esophageal reflux disease without esophagitis; R13.10 Dysphagia, unspecified; I48.2 Chronic atrial fibrillation; E78.5 Hyperlipidemia, unspecified; I25.10 Atherosclerotic heart disease of native coronary artery without angina pectoris; N18.9 Chronic kidney disease, unspecified; E11.42 Type 2 diabetes mellitus with diabetic polyneuropathy; E11.22 Type 2 diabetes mellitus with diabetic chronic kidney disease; D63.1 Anemia in chronic kidney disease; E66.9 Obesity, unspecified; Z68.28 Body mass index [BMI] 28.0-28.9, adult; Z91.14 Patient's other noncompliance with medication regimen; Z88.1 Allergy status to other antibiotic agents; Z87.891 Personal history of nicotine dependence; Z86.73 Personal history of transient ischemic attack (TIA), and cerebral infarction without residual deficits; Z95.1 Presence of aortocoronary bypass graft; Z79.82 Long term (current) use of aspirin; Z79.4 Long term (current) use of insulin; Z79.899 Other long term (current) drug therapy
CPT/HCPCS: 36415; 36600; 51702; 71045; 71046; 80048; 80053; 82728; 82803; 82947; 83540; 83550; 83735; 83880; 84484; 85025; 85027; 92526; 92610; 93005; 93010; 94640; 94660; 94762; 96374; 97110; 97162; 97166; 97530; 97535; 99285-25; A9270; A9270-GY; J1120; J1940

== ENCOUNTER → 2019-04-20 | Outpatient (CLI) | payer MEDICARE, OTHER ==
[~2019-04-20] MED LIST changes: +ACET325 PO; +AREDS PO; +Aspirin EC81 MG PO; +BASAGLAR K100 UNIT/1 SC; +CLOT10 SS; +LISI5 PO; +LORA1 PO; +METO50ER PO; +MORP20L PO; +Omeprazole20 M1 PO; +Ropinirole HCl1 MG PO; +Spironolactone25 MG PO; +THERA1 EACH PO; +Ventolin/Prove6.7 GM INH; +XARELTO1 EACH PO
[2019-04-23 13:35] LABS: Stool Occult Bld Immuno 1 Negative (NEGATIVE); Stool Occult Bld Immuno 2 Negative (NEGATIVE)
== END | disposition home or self-care (01) ==
LOC: OLS 10:23 → LAB SHORT 10:23 → LAB FUT 04-17 11:15
PROVIDERS: Internal Medicine Gastroenterology
DX: D50.9 Iron deficiency anemia, unspecified (principal); E11.649 Type 2 diabetes mellitus with hypoglycemia without coma; I42.9 Cardiomyopathy, unspecified
CPT/HCPCS: 82274

== ENCOUNTER → 2019-06-06 | Outpatient (CLI) | payer MEDICARE, OTHER ==
[2019-06-06 18:30] LABS: Creatinine, Urine Random 14.9 mg/dL (27.00-270.00)
[2019-06-06 18:32] LABS: Microalb/Creat Ratio UR, Rand 155.034 mg/g (0.000-30.000); Microalbumin, Random Urine 23.1 mg/L (0.000-20.000)
== END ==
LOC: LAB 17:06 → LAB SHORT 17:06
PROVIDERS: Nurse Practitioner Family
DX: E11.9 Type 2 diabetes mellitus without complications (principal)
CPT/HCPCS: 82043; 82570

== ENCOUNTER 2019-12-15 15:03 | Emergency (ER) | payer MEDICARE, OTHER ==
[~2019-12-15] VITALS: Ht 182.9 cm; Wt 87.1 kg
[~2019-12-15 15:03] MED LIST changes: -ALBU2.5V5; -Coumadin5 MG; -FERSU300 PO; -FLUT1DIS5; -NOVOLIN 70100 UNIT/3 SC; -RANEXA500 MG; -ROSUVASTATIN CAL5 MG PO
[2019-12-15] MEDS ORDERED: NOVOLIN 70100 UNIT/3 SC (16:56)
[2019-12-15] MEDS ORDERED: FERSU300 PO (16:57)
[2019-12-15] MEDS ORDERED: METO50ER PO (17:04)
[2019-12-15] MEDS ORDERED: POTA10T PO (17:09)
[2019-12-15] MEDS ORDERED: ROSUVASTATIN CAL5 MG PO (17:10)
[2019-12-15] MEDS ORDERED: Jantoven5 MG PO (17:12)
[2019-12-15 17:35] LABS: BASOPHILS ABSOLUTE AUTO 0.01 K/mm3 (0.00-0.23); BASOPHILS PERCENT AUTO 0 % (0-2); EOSINOPHILS ABSOLUTE AUTO 0.04 K/mm3 (0.00-0.68); EOSINOPHILS PERCENT AUTO 1 % (0-6); Hematocrit 40.5 % (37.0-53.0); Hemoglobin 13.1 g/dL (13.5-17.5); IMMATURE GRAN ABSOLUTE AUTO 0.19 K/mm3 (0.00-0.10); IMMATURE GRAN PERCENT AUTO 3 % (0-1); LYMPHOCYTES ABSOLUTE AUTO 1.03 K/mm3 (0.84-5.20); LYMPHOCYTES PERCENT AUTO 19 % (21-46); MONOCYTES ABSOLUTE AUTO 0.76 K/mm3 (0.16-1.47); MONOCYTES PERCENT AUTO 14 % (4-13); Mean Corpuscular HGB 28.2 pg (26.0-34.0); Mean Corpuscular HGB Conc 32.3 g/dL (31.5-36.5); Mean Corpuscular Volume 87 fL (80-100); Mean Platelet Volume 8.6 fL (9.1-12.4); NEUTROPHILS ABSOLUTE AUTO 3.55 K/mm3 (1.96-9.15); NEUTROPHILS PERCENT AUTO 64 % (41-73); Platelet Count 132 K/mm3 (150-400); RDW Standard Deviation 51.1 fL (35.1-46.3); Red Blood Cell Count 4.65 M/mm3 (4.30-5.90); White Blood Cell Count 5.58 K/mm3 (4.00-11.30)
[2019-12-15 17:57] LABS: Troponin I <0.015 ng/mL (0.000-0.040)
[2019-12-15 17:58] LABS: Alanine Aminotransfer (ALT/SGP 32 U/L (12-78); Albumin, Blood 3.7 g/dL (3.4-5.0); Albumin/Globulin Ratio 0.9 (0.8-1.8); Alk Phos 113 U/L (50-136); Anion Gap 6 mmol/L (6-16); Aspartate Aminotrans (AST/SGOT 23 U/L (12-37); Bilirubin, Total 0.8 mg/dL (0.1-1.0); Blood Urea Nitrogen 36 mg/dL (8-24); Bun/Creatinine Ratio 27.3 (12.0-20.0); CO2, Blood 32 mmol/L (21-32); Calcium, Blood 9.6 mg/dL (8.5-10.1); Chloride, Blood 99 mmol/L (98-108); Creatinine, Blood 1.32 mg/dL (0.60-1.20); Globulin, Blood 3.9 g/dL (2.2-4.0); Glomerular Filtration Rate 55 (60-); Glucose, Blood 77 mg/dL (70-99); Potassium, Blood 4.8 mmol/L (3.5-5.5); Sodium, Blood 137 mmol/L (136-145); Total Protein, Blood 7.6 g/dL (6.4-8.2)
== END 2019-12-15 18:26 | disposition home or self-care (01) ==
LOC: ER 15:03
PROVIDERS: Physician Assistant
DX: I48.91 Unspecified atrial fibrillation (principal); I50.43 Acute on chronic combined systolic (congestive) and diastolic (congestive) heart failure; J44.9 Chronic obstructive pulmonary disease, unspecified; E78.5 Hyperlipidemia, unspecified; E11.22 Type 2 diabetes mellitus with diabetic chronic kidney disease; N18.9 Chronic kidney disease, unspecified; F32.9 Major depressive disorder, single episode, unspecified; E11.40 Type 2 diabetes mellitus with diabetic neuropathy, unspecified; I25.810 Atherosclerosis of coronary artery bypass graft(s) without angina pectoris; Z88.1 Allergy status to other antibiotic agents; Z88.0 Allergy status to penicillin; Z79.899 Other long term (current) drug therapy; Z79.4 Long term (current) use of insulin; Z79.82 Long term (current) use of aspirin; Z79.01 Long term (current) use of anticoagulants; Z86.73 Personal history of transient ischemic attack (TIA), and cerebral infarction without residual deficits; Z95.1 Presence of aortocoronary bypass graft; Z87.891 Personal history of nicotine dependence
CPT/HCPCS: 36415; 71046; 80053; 83880; 84484; 85025; 93005; 93010; 96374; 99285-25

== ENCOUNTER → 2019-12-15 | Outpatient (CLI) | payer MEDICARE, OTHER ==
[~2019-12-15] MED LIST changes: +ALBU2.5V5; +Coumadin5 MG; +FERSU300 PO; +FLUT1DIS5; +NOVOLIN 70100 UNIT/3 SC; -Omeprazole20 M1 PO; +RANEXA500 MG; +ROPI1 PO; +ROSUVASTATIN CAL5 MG PO; -Ropinirole HCl1 MG PO
[2019-12-15 14:45] LABS: Hematocrit 40.4 % (37.0-53.0); Hemoglobin 13.1 g/dL (13.5-17.5); Mean Corpuscular HGB 28.5 pg (26.0-34.0); Mean Corpuscular HGB Conc 32.4 g/dL (31.5-36.5); Mean Corpuscular Volume 88 fL (80-100); Platelet Count 135 K/mm3 (150-400); RDW Coefficient Variation 15.9 % (11.7-14.2); RDW Standard Deviation 51.5 fL (35.1-46.3); White Blood Cell Count 5.69 K/mm3 (4.00-11.30)
[2019-12-15 14:56] LABS: Alanine Aminotransfer (ALT/SGP 33 U/L (12-78); Albumin, Blood 3.8 g/dL (3.4-5.0); Alk Phos 116 U/L (50-136); Anion Gap 6 mmol/L (6-16); Aspartate Aminotrans (AST/SGOT 20 U/L (12-37); Bilirubin, Total 0.8 mg/dL (0.1-1.0); Blood Urea Nitrogen 37 mg/dL (8-24); CO2, Blood 32 mmol/L (21-32); Calcium, Blood 9.6 mg/dL (8.5-10.1); Chloride, Blood 96 mmol/L (98-108); Creatinine, Blood 1.37 mg/dL (0.60-1.20); Globulin, Blood 3.7 g/dL (2.2-4.0); Glomerular Filtration Rate 53 (60-); Glucose, Blood 158 mg/dL (70-99); Potassium, Blood 4.9 mmol/L (3.5-5.5); Sodium, Blood 134 mmol/L (136-145); Total Protein, Blood 7.5 g/dL (6.4-8.2); Troponin I <0.015 ng/mL (0.000-0.040)
[2019-12-15 15:57] LABS: BAND PERCENT MAN 1 % (0-8); BASOPHILS PERCENT MAN 0 % (0-2); EOSINOPHILS PERCENT MAN 0 % (0-6); LYMPHOCYTES % ATYPICAL MANUAL 1 % (0-0); LYMPHOCYTES ABSOLUTE MAN 0.85 K/mm3 (0.84-5.20); LYMPHOCYTES PERCENT MAN 14 % (21-46); MONOCYTES ABSOLUTE MAN 0.56 K/mm3 (0.16-1.47); MONOCYTES PERCENT MAN 10 % (4-13); NEUTROPHILS ABSOLUTE MAN 4.26 K/mm3 (1.96-9.15); SEG NEUTROPHILS PERCENT MAN 74 % (41-73); TOTAL CELLS COUNTED 100
== END ==
LOC: LAB 14:35 → LAB SHORT 14:35
PROVIDERS: Nurse Practitioner Family
DX: I48.20 Chronic atrial fibrillation, unspecified (principal); I42.8 Other cardiomyopathies; R07.89 Other chest pain
CPT/HCPCS: 80053; 83880; 84484; 85025

== ENCOUNTER → 2019-12-15 | Outpatient (CLI) | payer MEDICARE, OTHER | END | disposition home or self-care (01) | LOC: LAB SHORT 07:43 → PLD 07:43 | DX: R23.4 Changes in skin texture (principal) | CPT/HCPCS: 88305; 88312 ==

== ENCOUNTER 2019-12-25 05:50 | Day surgery (SDC) | payer MEDICARE, OTHER ==
[~2019-12-25] VITALS: Ht 182.9 cm; Wt 91.0 kg
[~2019-12-25 05:50] MED LIST changes: +ALBU2.5V5; +Coumadin5 MG; +FERSU300 PO; +FLUT1DIS5; +NOVOLIN 70100 UNIT/3 SC; +RANEXA500 MG; +ROSUVASTATIN CAL5 MG PO
[2019-12-25 08:01] LABS: International Normalized Ratio 1.87; Prothrombin Time Results 19.3 Sec (9.7-11.5)
--- NOTE | 2019-12-25 09:20 | NUR ---
PT TO RECOVERY ROOM POST PROCEDURE. PT IS DROWSY, BUT EASILY ROUSABLE, ANSWERS QUESTIONS APPROPRIATELY, DENIES PAIN POST PROCEDURE. MONITOR AFIB WITH IVCD 60'S, B/P 109/58, AFEBRILE, SPO2 [id number] ON 2L NC. R GROIN SOME GENERALIZED SWELLING, SOFT, UNCHANGED FROM LAB PER STAFF, TEGADERM DRSG INTACT, ANGIO SEAL WAS DEPLOYED; PULSES RLE: 2+ X 2, LLE 1+ X 2. PT'S AT BEDSIDE, ATTENTIVE.
--- NOTE | 2019-12-25 09:30 | NUR ---
PT'S SPO2 97-99% 2L NC, R GROIN SITE REMAINS UNCHANGED.
--- NOTE | 2019-12-25 11:11 | NUR ---
HOB RAISED TO 45 DEGREES AT 1100, RIGHT GROIN SITE APPEARS TO BE SOFT NON TENDER WITH NO BLEEDING OR OOZING NOTED. DR MARINO AT BEDSIDE TO DISCUSS PROCEDURE RESULTS WITH PT AND .
--- NOTE | 2019-12-25 11:35 | NUR ---
PT HOB ELEVATED WITHOUT ISSUE, SITE UNCHANGED. PT TAKING BITES OF BREAKFAST WITHOUT PROBLEM.
--- NOTE | 2019-12-25 11:55 | NUR ---
PT AMB TO BATHROOM WITHOUT ISSUE, GAIT STEADY, SITE UNCHANGED. PT GOT DRESSED WITH ASSISTANCE, SITE UNCHANGED-IV REMOVED, CANNULA INTACT.
--- NOTE | 2019-12-25 12:03 | NUR ---
PT AND RECEIVED DISCHARGE INSTRUCTIONS, MED LIST AND AFTER CARE INSTRUCTIONS; VERBALIZED GOOD UNDERSTANDING. PT LEFT FACILITY VIA W/C, CONDITION STABLE.
== END 2019-12-25 12:03 | disposition home or self-care (01) ==
LOC: MHTC 05:50
PROVIDERS: Radiology Diagnostic Radiology
DX: E11.622 Type 2 diabetes mellitus with other skin ulcer (principal); I70.249 Atherosclerosis of native arteries of left leg with ulceration of unspecified site; L97.929 Non-pressure chronic ulcer of unspecified part of left lower leg with unspecified severity; I70.211 Atherosclerosis of native arteries of extremities with intermittent claudication, right leg; E11.51 Type 2 diabetes mellitus with diabetic peripheral angiopathy without gangrene; I11.0 Hypertensive heart disease with heart failure; I50.9 Heart failure, unspecified; K21.9 Gastro-esophageal reflux disease without esophagitis; J44.9 Chronic obstructive pulmonary disease, unspecified; Z79.899 Other long term (current) drug therapy; Z79.4 Long term (current) use of insulin; Z87.891 Personal history of nicotine dependence; Z88.1 Allergy status to other antibiotic agents; I42.8 Other cardiomyopathies; G47.30 Sleep apnea, unspecified; E11.40 Type 2 diabetes mellitus with diabetic neuropathy, unspecified; I95.9 Hypotension, unspecified; D64.9 Anemia, unspecified
CPT/HCPCS: 37229; 75625; 75716; 75774; 85347; 85610; 99152; 99153; C1725; C1760; C1769; C1885; C1887; C1894; J1644; J2250; J3010; J7030; J7040; J7050; Q9967

== ENCOUNTER 2020-01-21 11:34 | Emergency (ER) | payer MEDICARE, OTHER ==
[~2020-01-21] VITALS: Ht 182.9 cm; Wt 89.4 kg
[~2020-01-21 11:34] MED LIST changes: -ALBU2.5V5; -Coumadin5 MG; -FERSU300 PO; -FLUT1DIS5; -LISI5 PO; -NOVOLIN 70100 UNIT/3 SC; -RANEXA500 MG; -ROPI1 PO; -ROSUVASTATIN CAL5 MG PO; -Spironolactone25 MG PO
[2020-01-21 12:26] LABS: Hemoglobin 9.9 g/dL (13.5-17.5); Mean Corpuscular HGB 29.2 pg (26.0-34.0); Mean Corpuscular HGB Conc 31.9 g/dL (31.5-36.5); Mean Corpuscular Volume 91 fL (80-100); Mean Platelet Volume 8.7 fL (9.1-12.4); Platelet Count 133 K/mm3 (150-400); RDW Coefficient Variation 17.7 % (11.7-14.2); RDW Standard Deviation 58.3 fL (35.1-46.3); Red Blood Cell Count 3.39 M/mm3 (4.30-5.90)
[2020-01-21 12:46] LABS: Alanine Aminotransfer (ALT/SGP 20 U/L (12-78); Albumin, Blood 3.4 g/dL (3.4-5.0); Alk Phos 94 U/L (50-136); Anion Gap 6 mmol/L (6-16); Aspartate Aminotrans (AST/SGOT 14 U/L (12-37); Bilirubin, Total 0.9 mg/dL (0.1-1.0); Blood Urea Nitrogen 44 mg/dL (8-24); Bun/Creatinine Ratio 28.8 (12.0-20.0); CO2, Blood 30 mmol/L (21-32); Chloride, Blood 96 mmol/L (98-108); Creatinine, Blood 1.53 mg/dL (0.60-1.20); Globulin, Blood 3.3 g/dL (2.2-4.0); Glomerular Filtration Rate 46 (60-); Glucose, Blood 144 mg/dL (70-99); Potassium, Blood 5.8 mmol/L (3.5-5.5); Sodium, Blood 132 mmol/L (136-145); Total Protein, Blood 6.7 g/dL (6.4-8.2); Troponin I <0.015 ng/mL (0.000-0.040)
[2020-01-21 12:54] LABS: BASOPHILS PERCENT MAN 0 % (0-2); EOSINOPHILS ABSOLUTE MAN 0.06 K/mm3 (0.00-0.68); EOSINOPHILS PERCENT MAN 1 % (0-6); LYMPHOCYTES ABSOLUTE MAN 0.59 K/mm3 (0.84-5.20); LYMPHOCYTES PERCENT MAN 9 % (21-46); MONOCYTES ABSOLUTE MAN 0.85 K/mm3 (0.16-1.47); MONOCYTES PERCENT MAN 13 % (4-13); MYELOCYTE ABSOLUTE MAN 0.13 K/mm3 (0.00-0.00); MYELOCYTE PERCENT MAN 2 % (0-0); NEUTROPHILS ABSOLUTE MAN 4.95 K/mm3 (1.96-9.15); SEG NEUTROPHILS PERCENT MAN 75 % (41-73); TOTAL CELLS COUNTED 100
[2020-01-23] MEDS ORDERED: NOVOLIN 70100 UNIT/3 SC ×2 (18:10→18:11)
[2020-01-23] MEDS ORDERED: POTA10T PO (18:11)
[2020-01-23] MEDS ORDERED: RANOLAZINE PO (18:12)
[2020-01-23] MEDS ORDERED: Ketoconazole15 GM TOP (18:13)
[2020-01-23] MEDS ORDERED: METO25ER PO ×2 (18:13→20:59)
[2020-01-23] MEDS ORDERED: TRAZ100 PO (18:14)
[2020-01-23] MEDS ORDERED: Spironolactone25 MG PO (18:14)
[2020-01-23] MEDS ORDERED: ROPINIROLE HCL0.5 MG PO (18:14)
[2020-01-23] MEDS ORDERED: TORSE20 PO (18:15)
[2020-01-23] MEDS ORDERED: TORS10 PO (18:16)
[2020-01-23] MEDS ORDERED: FLUT1DIS5 INH (18:16)
[2020-01-23] MEDS ORDERED: OMEP20ER PO (18:16)
[2020-01-23] MEDS ORDERED: Coumadin5 MG PO (18:17)
[2020-01-23] MEDS ORDERED: ESCI10 PO (18:17)
[2020-01-23] MEDS ORDERED: Lisinopril2.5 MG PO (18:17)
[2020-01-23] MEDS ORDERED: ROSUVASTATIN CAL5 MG PO (18:18)
[2020-01-23] MEDS ORDERED: ALBU90OI INH (18:18)
[2020-01-23] MEDS ORDERED: FERSU300 PO (18:31)
[2020-01-23] MEDS ORDERED: ACET325 PO (18:31)
[2020-01-23] MEDS ORDERED: PRESERVISION A1 EACH PO (18:32)
== END 2020-01-21 14:07 | disposition home or self-care (01) ==
LOC: ER 11:34
PROVIDERS: Emergency Medicine
DX: E86.0 Dehydration (principal); S20.211A Contusion of right front wall of thorax, initial encounter; S70.01XA Contusion of right hip, initial encounter; J44.9 Chronic obstructive pulmonary disease, unspecified; E78.5 Hyperlipidemia, unspecified; I48.91 Unspecified atrial fibrillation; F32.9 Major depressive disorder, single episode, unspecified; E11.22 Type 2 diabetes mellitus with diabetic chronic kidney disease; N18.9 Chronic kidney disease, unspecified; E11.42 Type 2 diabetes mellitus with diabetic polyneuropathy; I25.810 Atherosclerosis of coronary artery bypass graft(s) without angina pectoris; Z88.1 Allergy status to other antibiotic agents; Z88.0 Allergy status to penicillin; Z79.899 Other long term (current) drug therapy; Z79.4 Long term (current) use of insulin; Z86.73 Personal history of transient ischemic attack (TIA), and cerebral infarction without residual deficits; Z95.1 Presence of aortocoronary bypass graft; Z91.81 History of falling; W18.30XA Fall on same level, unspecified, initial encounter; Y93.01 Activity, walking, marching and hiking
CPT/HCPCS: 36415; 71101; 73502; 80053; 84484; 85025; 93005; 93010; 99284-25

== ENCOUNTER → 2020-04-21 | Outpatient (CLI) | payer MEDICARE, OTHER ==
[~2020-04-21] MED LIST changes: +8 HOUR ACETAMI650 MG PR; +ACET500 PO; +ALDACTONE25 MG PO; +ATROPINE SULFATE2 M5 SL; +Ativan1 MG PO; +Coumadin5 MG PO; +DICLOFENAC SOD100 G1; +FERSU300 PO; +FURO20 PO; +HUMULIN 70100 UNIT/4 SC; +Ketoconazole15 GM TOP; +LISI5 PO; +Lisinopril2.5 MG PO; +METO2.5 PO; +METO25 PO; +MORP20L SL; +NITRO-DUR1 EAC1 TOP; +NOVOLIN 70100 UNIT/3 SC; +Nitroglycerin1 EAC3 TOP; +PRESERVISION A1 EAC1 PO; +PROM12.5S PR; +RANO500T PO; +RANOLAZINE PO; +ROPINIROLE HCL0.5 MG PO; +ROPINIROLE HCL3 M1 PO; +ROSUVASTATIN CAL5 MG PO; +Ropinirole HCl0.5 MG PO; +Spironolactone25 MG PO; +TORS10 PO; +TRANSDERM-SCOP1 EAC4 TD; +Ventolin5 MG/1 ML INH; +WARF5 PO; +[UNRECOGNIZED DRUG - OTHER] TP
== END | disposition home or self-care (01) ==
LOC: LAB 18:45 → LAB SHORT 18:45
DX: Z48.02 Encounter for removal of sutures (principal); L08.9 Local infection of the skin and subcutaneous tissue, unspecified
CPT/HCPCS: 87070; 87106; 87205

== ENCOUNTER 2020-05-29 23:18 | Inpatient (IN) | payer MEDICARE, OTHER ==
[~2020-05-29] VITALS: Ht 180.3 cm; Wt 94.8 kg
[~2020-05-29 23:18] MED LIST changes: -8 HOUR ACETAMI650 MG PR; -ACET500 PO; -ALDACTONE25 MG PO; -ATROPINE SULFATE2 M5 SL; -Ativan1 MG PO; -DICLOFENAC SOD100 G1; -HUMULIN 70100 UNIT/4 SC; -LISI5 PO; -METO2.5 PO; -METO25 PO; -MORP20L SL; -NITRO-DUR1 EAC1 TOP; -Nitroglycerin1 EAC3 TOP; -PROM12.5S PR; -RANO500T PO; -ROPINIROLE HCL3 M1 PO; -Ropinirole HCl0.5 MG PO; -TRANSDERM-SCOP1 EAC4 TD; -Ventolin5 MG/1 ML INH; -WARF5 PO; -[UNRECOGNIZED DRUG - OTHER] TP
[2020-05-29] MEDS ORDERED: SPIR25 PO (23:55)
[2020-05-29] MEDS ORDERED: NITRO-DUR1 EAC1 TOP (23:57)
[2020-05-30] LABS: Base Excess Venous 5.5 mmol/L; Bicarbonate Venous 28.6 mmol/L (24.0-30.0); PCO2 Venous 52.1 mmHg (38-42); pH Blood Venous 7.38 (7.34-7.37)
[2020-05-30] LABS: BASOPHILS ABSOLUTE AUTO 0.01 K/mm3 (0.00-0.23); BASOPHILS PERCENT AUTO 0 % (0-2); EOSINOPHILS ABSOLUTE AUTO 0.16 K/mm3 (0.00-0.68); EOSINOPHILS PERCENT AUTO 3 % (0-6); Hematocrit 27.7 % (37.0-53.0); Hemoglobin 8.8 g/dL (13.5-17.5); IMMATURE GRAN ABSOLUTE AUTO 0.42 K/mm3 (0.00-0.10); IMMATURE GRAN PERCENT AUTO 7 % (0-1); LYMPHOCYTES ABSOLUTE AUTO 0.59 K/mm3 (0.84-5.20); LYMPHOCYTES PERCENT AUTO 10 % (21-46); MONOCYTES ABSOLUTE AUTO 0.69 K/mm3 (0.16-1.47); MONOCYTES PERCENT AUTO 12 % (4-13); Mean Corpuscular HGB 27.6 pg (26.0-34.0); Mean Corpuscular HGB Conc 31.8 g/dL (31.5-36.5); Mean Corpuscular Volume 87 fL (80-100); Mean Platelet Volume 8.7 fL (9.1-12.4); NEUTROPHILS PERCENT AUTO 68 % (41-73); Platelet Count 172 K/mm3 (150-400); RDW Coefficient Variation 17.6 % (11.7-14.2); RDW Standard Deviation 55.8 fL (35.1-46.3); Red Blood Cell Count 3.19 M/mm3 (4.30-5.90); White Blood Cell Count 5.87 K/mm3 (4.00-11.30)
[2020-05-30] MEDS ORDERED: TORSE20 PO
[2020-05-30] MEDS ORDERED: METO2.5 PO
[2020-05-30] MEDS ORDERED: [UNRECOGNIZED DRUG - OTHER] TP
[2020-05-30 00:13] LABS: International Normalized Ratio 2.93; Prothrombin Time Results 29.5 Sec (9.7-11.5)
[2020-05-30 00:16] LABS: BAND PERCENT MAN 1 % (0-8); BASOPHILS PERCENT MAN 0 % (0-2); EOSINOPHILS ABSOLUTE MAN 0.17 K/mm3 (0.00-0.68); EOSINOPHILS PERCENT MAN 3 % (0-6); LYMPHOCYTES ABSOLUTE MAN 0.29 K/mm3 (0.84-5.20); LYMPHOCYTES PERCENT MAN 5 % (21-46); METAMYELOCYTE ABSOLUTE MAN 0.05 K/mm3 (0.00-0.00); METAMYELOCYTE PERCENT MAN 1 % (0-0); MONOCYTES ABSOLUTE MAN 0.17 K/mm3 (0.16-1.47); MONOCYTES PERCENT MAN 3 % (4-13); MYELOCYTE ABSOLUTE MAN 0.05 K/mm3 (0.00-0.00); MYELOCYTE PERCENT MAN 1 % (0-0); NEUTROPHILS ABSOLUTE MAN 5.04 K/mm3 (1.96-9.15); PROMYELOCYTE ABSOLUTE MAN 0.05 K/mm3 (0.00-0.00); PROMYELOCYTE PERCENT MAN 1 % (0-0); SEG NEUTROPHILS PERCENT MAN 85 % (41-73); TOTAL CELLS COUNTED 100
[2020-05-30 00:33] LABS: Alanine Aminotransfer (ALT/SGP 24 U/L (12-78); Albumin, Blood 2.9 g/dL (3.4-5.0); Albumin/Globulin Ratio 0.8 (0.8-1.8); Alk Phos 143 U/L (50-136); Anion Gap 6 mmol/L (6-16); Aspartate Aminotrans (AST/SGOT 14 U/L (12-37); Bilirubin, Total 0.5 mg/dL (0.1-1.0); Blood Urea Nitrogen 30 mg/dL (8-24); Bun/Creatinine Ratio 28.3 (12.0-20.0); CO2, Blood 30 mmol/L (21-32); Calcium, Blood 8.9 mg/dL (8.5-10.1); Chloride, Blood 101 mmol/L (98-108); Creatinine, Blood 1.06 mg/dL (0.60-1.20); Globulin, Blood 3.5 g/dL (2.2-4.0); Glomerular Filtration Rate >60 (60-); Glucose, Blood 330 mg/dL (70-99); Potassium, Blood 4.2 mmol/L (3.5-5.5); Sodium, Blood 137 mmol/L (136-145); Total Protein, Blood 6.4 g/dL (6.4-8.2); Troponin I <0.015 ng/mL (0.000-0.040)
--- NOTE | 2020-05-30 04:46 | NUR ---
SUMMARY PT ARRIVED TO FLOOR IN NO DISTRESS. PT ON O2 AND BREATHING EASY. PT HAS SOB W/ EXERTION. PT DENIES CX PAIN. PT CURRENTLY SLEEPING W/ BIPAP AND BREATHING EASY. CALL LIGHT IN REACH
[2020-05-30 08:04] LABS: Hematocrit 26.5 % (37.0-53.0); Hemoglobin 8.6 g/dL (13.5-17.5); Mean Corpuscular HGB 27.6 pg (26.0-34.0); Mean Corpuscular HGB Conc 32.5 g/dL (31.5-36.5); Mean Corpuscular Volume 85 fL (80-100); Mean Platelet Volume 8.9 fL (9.1-12.4); Platelet Count 145 K/mm3 (150-400); RDW Coefficient Variation 17.8 % (11.7-14.2); RDW Standard Deviation 54.3 fL (35.1-46.3); Red Blood Cell Count 3.12 M/mm3 (4.30-5.90); White Blood Cell Count 5.56 K/mm3 (4.00-11.30)
[2020-05-30 08:12] LABS: International Normalized Ratio 2.92; Prothrombin Time Results 29.4 Sec (9.7-11.5)
[2020-05-30 08:14] LABS: Alanine Aminotransfer (ALT/SGP 22 U/L (12-78); Albumin, Blood 2.9 g/dL (3.4-5.0); Albumin/Globulin Ratio 0.9 (0.8-1.8); Alk Phos 134 U/L (50-136); Anion Gap 7 mmol/L (6-16); Aspartate Aminotrans (AST/SGOT 12 U/L (12-37); Bilirubin, Total 0.6 mg/dL (0.1-1.0); Blood Urea Nitrogen 28 mg/dL (8-24); Bun/Creatinine Ratio 26.2 (12.0-20.0); CO2, Blood 30 mmol/L (21-32); Calcium, Blood 8.7 mg/dL (8.5-10.1); Chloride, Blood 100 mmol/L (98-108); Creatinine, Blood 1.07 mg/dL (0.60-1.20); Globulin, Blood 3.4 g/dL (2.2-4.0); Glomerular Filtration Rate >60 (60-); Glucose, Blood 326 mg/dL (70-99); Potassium, Blood 3.8 mmol/L (3.5-5.5); Sodium, Blood 137 mmol/L (136-145); Total Protein, Blood 6.3 g/dL (6.4-8.2)
[2020-05-30 08:18] LABS: CPK Creatine Kinase 16 U/L (39-308)
[2020-05-30 08:34] LABS: BASOPHILS PERCENT MAN 0 % (0-2); EOSINOPHILS ABSOLUTE MAN 0.05 K/mm3 (0.00-0.68); EOSINOPHILS PERCENT MAN 1 % (0-6); LYMPHOCYTES ABSOLUTE MAN 0.61 K/mm3 (0.84-5.20); LYMPHOCYTES PERCENT MAN 11 % (21-46); METAMYELOCYTE ABSOLUTE MAN 0.11 K/mm3 (0.00-0.00); METAMYELOCYTE PERCENT MAN 2 % (0-0); MONOCYTES ABSOLUTE MAN 0.55 K/mm3 (0.16-1.47); MONOCYTES PERCENT MAN 10 % (4-13); MYELOCYTE ABSOLUTE MAN 0.05 K/mm3 (0.00-0.00); MYELOCYTE PERCENT MAN 1 % (0-0); NEUTROPHILS ABSOLUTE MAN 4.17 K/mm3 (1.96-9.15); SEG NEUTROPHILS PERCENT MAN 75 % (41-73); TOTAL CELLS COUNTED 100
--- NOTE | 2020-05-30 10:53 | NUR ---
Echocardiogram completed.
[2020-05-30 16:13] LABS: CPK Creatine Kinase 17 U/L (39-308)
--- NOTE | 2020-05-30 17:25 | NUR ---
PT AOX4 AND COOPERATIVE OF CARE. PT HAS BEEN NAPPING A LOT TODAY AND STATES HE FEELS VERY TIRED. PT TREATED FOR R SHOULDER PAIN PER EMAR. PT DID NOT WANT TO LUNCH, STATING HE JUST WASN'T HUNGRY. IS IN ROOM VISITING WILL CONTINUE TO MONITOR.
--- NOTE | 2020-05-30 22:35 | NUR ---
2129 DR ENGEL CALLED AND INFORMED OF PT CBG- 90. PT HAD NOT ATE DINNER AND WAS TO GET NIGHT TIME INSULIN. DR ENGEL OK'D TO HOLD INSULIN AND TO RECHECK CBG AT 0000 HRS.
[2020-05-31 04:40] LABS: BASOPHILS ABSOLUTE AUTO 0.01 K/mm3 (0.00-0.23); BASOPHILS PERCENT AUTO 0 % (0-2); EOSINOPHILS PERCENT AUTO 2 % (0-6); Hemoglobin 8.8 g/dL (13.5-17.5); IMMATURE GRAN ABSOLUTE AUTO 0.39 K/mm3 (0.00-0.10); IMMATURE GRAN PERCENT AUTO 7 % (0-1); LYMPHOCYTES ABSOLUTE AUTO 0.87 K/mm3 (0.84-5.20); LYMPHOCYTES PERCENT AUTO 15 % (21-46); MONOCYTES ABSOLUTE AUTO 0.68 K/mm3 (0.16-1.47); MONOCYTES PERCENT AUTO 12 % (4-13); Mean Corpuscular HGB 27.8 pg (26.0-34.0); Mean Corpuscular HGB Conc 32.6 g/dL (31.5-36.5); Mean Corpuscular Volume 85 fL (80-100); Mean Platelet Volume 9.3 fL (9.1-12.4); NEUTROPHILS ABSOLUTE AUTO 3.78 K/mm3 (1.96-9.15); NEUTROPHILS PERCENT AUTO 65 % (41-73); Platelet Count 152 K/mm3 (150-400); RDW Coefficient Variation 17.6 % (11.7-14.2); RDW Standard Deviation 54.7 fL (35.1-46.3); Red Blood Cell Count 3.16 M/mm3 (4.30-5.90); White Blood Cell Count 5.83 K/mm3 (4.00-11.30)
--- NOTE | 2020-05-31 04:49 | NUR ---
SUMMARY PT CONTINUES TO HAVE INCREASED SOB W/ EXERTION. PT WAS FOUND NOT WEARING NC A FEW TIMES AND HAD TAKEN OFF BIPAP. PT STATES HE TOOK OFF BIPAP BECAUSE HE COULDN'T BREATHE. RT ADJUSTED SETTINGS AND PT HAS BEEN TOLERATING FINE. PT ALSO C/O INCREASED PAIN IN NECK, SHOULDER AND HIP. PT STATES UNABLE TO SLEEP DUE TO DISCOMFORT. DR LAI CALLED AND NORCO WAS ORDERED. PT REPORTED ALMOST PAIN FREE AND ABLE TO SLEEP. PT HAD A CBG OF [address] ENGEL CALLED AND ORDERED EVENING DOSE OF 70/30 TO BE HELD. 0000 CBG SHOWED 131. PT CURRENTLY SLEEPING AND BREATHING EASY ON BIPAP. CALL LIGHT IN REACH.
[2020-05-31 04:54] LABS: International Normalized Ratio 2.52; Prothrombin Time Results 25.6 Sec (9.7-11.5)
[2020-05-31 05:00] LABS: Alanine Aminotransfer (ALT/SGP 20 U/L (12-78); Albumin, Blood 2.8 g/dL (3.4-5.0); Albumin/Globulin Ratio 0.9 (0.8-1.8); Alk Phos 114 U/L (50-136); Anion Gap 7 mmol/L (6-16); Aspartate Aminotrans (AST/SGOT 12 U/L (12-37); Bilirubin, Total 1.3 mg/dL (0.1-1.0); Blood Urea Nitrogen 30 mg/dL (8-24); CO2, Blood 30 mmol/L (21-32); Calcium, Blood 8.7 mg/dL (8.5-10.1); Chloride, Blood 99 mmol/L (98-108); Creatinine, Blood 1.11 mg/dL (0.60-1.20); Globulin, Blood 3.2 g/dL (2.2-4.0); Glomerular Filtration Rate >60 (60-); Glucose, Blood 162 mg/dL (70-99); Magnesium, Blood 1.5 mg/dL (1.6-2.4); Potassium, Blood 3.8 mmol/L (3.5-5.5); Sodium, Blood 136 mmol/L (136-145)
[2020-05-31 05:05] LABS: BAND PERCENT MAN 1 % (0-8); BASOPHILS ABSOLUTE MAN 0.05 K/mm3 (0.00-0.23); BASOPHILS PERCENT MAN 1 % (0-2); EOSINOPHILS ABSOLUTE MAN 0.17 K/mm3 (0.00-0.68); EOSINOPHILS PERCENT MAN 3 % (0-6); LYMPHOCYTES PERCENT MAN 7 % (21-46); METAMYELOCYTE ABSOLUTE MAN 0.05 K/mm3 (0.00-0.00); METAMYELOCYTE PERCENT MAN 1 % (0-0); MONOCYTES ABSOLUTE MAN 0.58 K/mm3 (0.16-1.47); MONOCYTES PERCENT MAN 10 % (4-13); NEUTROPHILS ABSOLUTE MAN 4.54 K/mm3 (1.96-9.15); SEG NEUTROPHILS PERCENT MAN 77 % (41-73); TOTAL CELLS COUNTED 100
--- NOTE | 2020-05-31 13:38 | NUR ---
Patient is sitting up in bed and alert. Patient talks about the events that led to his hospitalization, about his current condition and the plan of care moving forward. Patient jokes about the things that were going through his mind when he wasn't sure he was going to come out of it but does admit that he was scared. He talks at length about life in the 50s and 60s and how life has changed since then. He tells many stories of his near experiences and how he always seems to to through it all. He shares about the love he has for his family and how dislikes being in the hospital. We also talks about his roman and that he has his talks with God when no one is around. I normalize patient's experience, reinforce helpful attitudes and practices and provide therapeutic listening and prayer. Patient responds well and shows signs of an elevated mood. I will continue to remain available to patient and family.
--- NOTE | 2020-05-31 17:24 | NUR ---
SHIFT SUMMARY- PT IS A/O, PLESANT AND COOPERATIVE WITH CARE. HE IS EATING AND DRINKING WELL. HE IS USING THE URINAL AT BEDSIDE. HIS VISITED THIS AFTERNOON. HE IS BEING TREATED FOR PAIN NEEDED. HE IS UP TO THE CHAIR CURRENTLY WITH HIS CALL LIGHT WITHIN REACH.
[2020-06-01 04:50] LABS: BASOPHILS ABSOLUTE AUTO 0.01 K/mm3 (0.00-0.23); BASOPHILS PERCENT AUTO 0 % (0-2); EOSINOPHILS ABSOLUTE AUTO 0.13 K/mm3 (0.00-0.68); EOSINOPHILS PERCENT AUTO 2 % (0-6); Hematocrit 26.6 % (37.0-53.0); Hemoglobin 8.7 g/dL (13.5-17.5); IMMATURE GRAN ABSOLUTE AUTO 0.36 K/mm3 (0.00-0.10); IMMATURE GRAN PERCENT AUTO 6 % (0-1); LYMPHOCYTES ABSOLUTE AUTO 0.71 K/mm3 (0.84-5.20); LYMPHOCYTES PERCENT AUTO 12 % (21-46); MONOCYTES ABSOLUTE AUTO 0.86 K/mm3 (0.16-1.47); MONOCYTES PERCENT AUTO 15 % (4-13); Mean Corpuscular HGB 27.8 pg (26.0-34.0); Mean Corpuscular HGB Conc 32.7 g/dL (31.5-36.5); Mean Corpuscular Volume 85 fL (80-100); Mean Platelet Volume 8.9 fL (9.1-12.4); NEUTROPHILS ABSOLUTE AUTO 3.68 K/mm3 (1.96-9.15); NEUTROPHILS PERCENT AUTO 64 % (41-73); Platelet Count 148 K/mm3 (150-400); RDW Coefficient Variation 17.9 % (11.7-14.2); RDW Standard Deviation 54.4 fL (35.1-46.3); Red Blood Cell Count 3.13 M/mm3 (4.30-5.90); White Blood Cell Count 5.75 K/mm3 (4.00-11.30)
[2020-06-01 05:01] LABS: International Normalized Ratio 2.9; Prothrombin Time Results 29.2 Sec (9.7-11.5)
[2020-06-01 05:12] LABS: Alanine Aminotransfer (ALT/SGP 18 U/L (12-78); Albumin, Blood 2.7 g/dL (3.4-5.0); Albumin/Globulin Ratio 0.8 (0.8-1.8); Alk Phos 109 U/L (50-136); Anion Gap 8 mmol/L (6-16); Aspartate Aminotrans (AST/SGOT 9 U/L (12-37); Bilirubin, Total 0.7 mg/dL (0.1-1.0); Blood Urea Nitrogen 34 mg/dL (8-24); Bun/Creatinine Ratio 29.1 (12.0-20.0); CO2, Blood 30 mmol/L (21-32); Calcium, Blood 8.4 mg/dL (8.5-10.1); Chloride, Blood 96 mmol/L (98-108); Creatinine, Blood 1.17 mg/dL (0.60-1.20); Globulin, Blood 3.3 g/dL (2.2-4.0); Glomerular Filtration Rate >60 (60-); Glucose, Blood 137 mg/dL (70-99); Potassium, Blood 3.8 mmol/L (3.5-5.5); Sodium, Blood 134 mmol/L (136-145)
[2020-06-01 05:13] LABS: BASOPHILS PERCENT MAN 0 % (0-2); EOSINOPHILS ABSOLUTE MAN 0.05 K/mm3 (0.00-0.68); EOSINOPHILS PERCENT MAN 1 % (0-6); LYMPHOCYTES ABSOLUTE MAN 0.63 K/mm3 (0.84-5.20); LYMPHOCYTES PERCENT MAN 11 % (21-46); METAMYELOCYTE ABSOLUTE MAN 0.05 K/mm3 (0.00-0.00); METAMYELOCYTE PERCENT MAN 1 % (0-0); MONOCYTES ABSOLUTE MAN 0.57 K/mm3 (0.16-1.47); MONOCYTES PERCENT MAN 10 % (4-13); NEUTROPHILS ABSOLUTE MAN 4.42 K/mm3 (1.96-9.15); SEG NEUTROPHILS PERCENT MAN 77 % (41-73); TOTAL CELLS COUNTED 100
--- NOTE | 2020-06-01 07:39 | NUR ---
Antonio summary: Patient is alert and oriented. Pt breath sounds are course upper lobes and diminished lower lobes. Abdomen is rounded and firm. Pt states he feels like he has a lot of edema in his abdomen. Pt is SOB with any activity even just turning or adjusting in bed. Pt uses a urinal with assist. Pt has been medicated with [place] 2 tabs x3 for rt hip and upper torso discomfort and left shoulder pain. Pt remains on 2 liters O2 which is his baseline. Pt hopes to be discharged today. Call light in reach. Report to Temitope JONES.
[2020-06-01] MEDS ORDERED: FURO20 PO (15:57)
--- NOTE | 2020-06-01 17:03 | NUR ---
DISCHARGE SUMMARY PT DISCHARGED @ 1700 VIA WHEELCHAIR BY ADRIANA. PT WAS ACCOMPANIED BY HIS AT TIME OF DISCHARGE. IV WAS REMOVED AND SITE APPEARD WNL. DISCHARGE INSTRUCTIONS REVIEWED WITH PT AND , THEY HAD NO FURTHER QUESTIONS AT THIS TIME. PT STATED HE HAD ALL OF HIS BELONGINGS. NEEDED RX WERE FAXED TO PREFERRED PHARMACY.
== END 2020-06-01 17:03 | disposition home or self-care (01) | DRG 291 ==
LOC: ER 23:18 → MEDS 05-30 01:01
PROVIDERS: Emergency Medicine; Internal Medicine; ADMIT Internal Medicine
DX: I13.0 Hypertensive heart and chronic kidney disease with heart failure and stage 1 through stage 4 chronic kidney disease, or unspecified chronic kidney disease (principal); I50.43 Acute on chronic combined systolic (congestive) and diastolic (congestive) heart failure; J96.21 Acute and chronic respiratory failure with hypoxia; D62 Acute posthemorrhagic anemia; K92.1 Melena; J44.1 Chronic obstructive pulmonary disease with (acute) exacerbation; D68.8 Other specified coagulation defects; Z66 Do not resuscitate; N18.30 Chronic kidney disease, stage 3 unspecified; E11.65 Type 2 diabetes mellitus with hyperglycemia; I27.20 Pulmonary hypertension, unspecified; I48.91 Unspecified atrial fibrillation; G47.33 Obstructive sleep apnea (adult) (pediatric); E11.22 Type 2 diabetes mellitus with diabetic chronic kidney disease; Z20.822 Contact with and (suspected) exposure to COVID-19; H91.90 Unspecified hearing loss, unspecified ear; I25.10 Atherosclerotic heart disease of native coronary artery without angina pectoris; Z86.73 Personal history of transient ischemic attack (TIA), and cerebral infarction without residual deficits; Z95.1 Presence of aortocoronary bypass graft; Z99.81 Dependence on supplemental oxygen; Z98.890 Other specified postprocedural states; Z87.891 Personal history of nicotine dependence; Z88.1 Allergy status to other antibiotic agents
CPT/HCPCS: 36415; 71045; 80053; 82550; 82803; 82947; 83735; 83880; 84484; 85025; 85610; 86850; 86900; 86901; 93005; 93010; 94640; 94660; 94761; 94762; 99285-25; A9270; C8929; C9113; J1815; J1940; J3475; Q9957

== ENCOUNTER 2020-06-10 05:27 | Inpatient (IN) | payer MEDICARE, OTHER ==
[~2020-06-10] VITALS: Ht 180.3 cm; Wt 97.4 kg
[~2020-06-10 05:27] MED LIST changes: +METO2.5 PO; +NITRO-DUR1 EAC1 TOP; +[UNRECOGNIZED DRUG - OTHER] TP
[2020-06-10 07:00] LABS: Hematocrit 28.7 % (37.0-53.0); Mean Corpuscular HGB 27.6 pg (26.0-34.0); Mean Corpuscular HGB Conc 31.4 g/dL (31.5-36.5); Mean Corpuscular Volume 88 fL (80-100); Mean Platelet Volume 9.6 fL (9.1-12.4); Platelet Count 158 K/mm3 (150-400); RDW Coefficient Variation 17.5 % (11.7-14.2); RDW Standard Deviation 56.2 fL (35.1-46.3); Red Blood Cell Count 3.26 M/mm3 (4.30-5.90); White Blood Cell Count 10.85 K/mm3 (4.00-11.30)
[2020-06-10 07:11] LABS: Alanine Aminotransfer (ALT/SGP 73 U/L (12-78); Albumin, Blood 2.9 g/dL (3.4-5.0); Albumin/Globulin Ratio 0.8 (0.8-1.8); Alk Phos 117 U/L (50-136); Anion Gap 11 mmol/L (6-16); Aspartate Aminotrans (AST/SGOT 79 U/L (12-37); Bilirubin, Total 0.7 mg/dL (0.1-1.0); Blood Urea Nitrogen 52 mg/dL (8-24); Bun/Creatinine Ratio 23.7 (12.0-20.0); CO2, Blood 25 mmol/L (21-32); Calcium, Blood 8.9 mg/dL (8.5-10.1); Chloride, Blood 96 mmol/L (98-108); Creatinine, Blood 2.19 mg/dL (0.60-1.20); Globulin, Blood 3.5 g/dL (2.2-4.0); Glomerular Filtration Rate 31 (60-); Glucose, Blood 114 mg/dL (70-99); Sodium, Blood 132 mmol/L (136-145); Total Protein, Blood 6.4 g/dL (6.4-8.2); Troponin I <0.015 ng/mL (0.000-0.040)
[2020-06-10 07:35] LABS: BAND PERCENT MAN 1 % (0-8); BASOPHILS PERCENT MAN 0 % (0-2); EOSINOPHILS PERCENT MAN 1 % (0-6); LYMPHOCYTES ABSOLUTE MAN 0.75 K/mm3 (0.84-5.20); LYMPHOCYTES PERCENT MAN 7 % (21-46); METAMYELOCYTE ABSOLUTE MAN 0.21 K/mm3 (0.00-0.00); METAMYELOCYTE PERCENT MAN 2 % (0-0); MONOCYTES ABSOLUTE MAN 0.97 K/mm3 (0.16-1.47); MONOCYTES PERCENT MAN 9 % (4-13); NEUTROPHILS ABSOLUTE MAN 8.78 K/mm3 (1.96-9.15); SEG NEUTROPHILS PERCENT MAN 80 % (41-73); TOTAL CELLS COUNTED 100
[2020-06-10 08:21] LABS: Prothrombin Time Results >90.0 Sec (9.7-11.5)
[2020-06-10 08:23] LABS: International Normalized Ratio >10.00
[2020-06-10 17:13] LABS: Hematocrit 29.4 % (37.0-53.0); Hemoglobin 9.2 g/dL (13.5-17.5)
[2020-06-10 17:43] LABS: International Normalized Ratio >10.00; Prothrombin Time Results >90.0 Sec (9.7-11.5)
[2020-06-11 04:02] LABS: Hematocrit 24.8 % (37.0-53.0); Hemoglobin 7.6 g/dL (13.5-17.5); Mean Corpuscular HGB 26.8 pg (26.0-34.0); Mean Corpuscular HGB Conc 30.6 g/dL (31.5-36.5); Mean Corpuscular Volume 87 fL (80-100); Mean Platelet Volume 9.1 fL (9.1-12.4); Platelet Count 109 K/mm3 (150-400); RDW Coefficient Variation 17.4 % (11.7-14.2); RDW Standard Deviation 55.7 fL (35.1-46.3); Red Blood Cell Count 2.84 M/mm3 (4.30-5.90); White Blood Cell Count 7.94 K/mm3 (4.00-11.30)
[2020-06-11 04:24] LABS: Prothrombin Time Results 66.8 Sec (9.7-11.5)
[2020-06-11 04:25] LABS: International Normalized Ratio 6.97
[2020-06-11 04:39] LABS: Bun/Creatinine Ratio 25.3 (12.0-20.0); Calcium, Blood 7.2 mg/dL (8.5-10.1); Creatinine, Blood 1.98 mg/dL (0.60-1.20); Potassium, Blood 4.8 mmol/L (3.5-5.5)
[2020-06-11 05:47] LABS: Source, Urine Clean Catch
[2020-06-11 06:07] LABS: Appearance, Urine Clear (Clear); Bilirubin, Urine Neg (Neg); Blood, Urine Neg (Neg); Color, Urine Yellow (P-Yellow); Glucose Qualitative, Urine Neg (Neg); Ketones, Urine Neg (Neg); Leukocyte Esterase, Urine 2+ (Neg); Nitrite, Urine Neg (Neg); Protein, Urine 1+ (Neg); Urobilinogen, Urine NORM (Normal)
[2020-06-11 06:23] LABS: Bacteria Rare /hpf; Red Blood Cells, Urine Not Seen /hpf (0-2); Squamous Epithelial Cells Few /hpf (Few)
--- NOTE | 2020-06-11 06:24 | NUR ---
SHIFT SUMMARY PT A&OX4. SP02>90% ON 2L NC OR BIPAP WHILE SLEEPING. TELEMETRY READS AFIB, HR 70'S. PT C/O OF 9/10 ARM AND R HIP PAIN. MEDICATED PER EMAR AND REPOSITIONED WITH MODERATE RELIEF. PT USED URINAL X2 TO VOID THIS SHIFT. PT HAS SEVERE WOUNDS ON ARMS THAT OOZE BLOOD. DRESSINGS CHANGES X3 THIS SHIFT. NS INFUSING PER EMAR. CALL LIGHT INREACH. WILL GIVE REPORT TO ONCOMING NURSE.
[2020-06-11] MEDS ORDERED: ACET500 PO (11:32)
--- NOTE | 2020-06-11 11:32 | NUR ---
Spiritual care visit conducted. Patient is sitting up in bed and awake. Patient is making heavy weezing sound with each breath. Patient talks but is labored in doing so. He tells me about how each trip home he finds himself more limited in strength, mobility and ability to breath. Patient shares about the fall that led to this hospital stay. He states that he is not concerned about himself but for his spouse, Manuela, because she worries about him so much and is finding herself exhausted more often. I provide therapeutic listening and prayer. Patient responds well and voices appreciation for the visit.
[2020-06-11] MEDS ORDERED: Ventolin5 MG/1 ML INH (11:33)
[2020-06-11] MEDS ORDERED: ALBU90OI INH (11:33)
[2020-06-11] MEDS ORDERED: DICLOFENAC SOD100 G1 (11:34)
[2020-06-11] MEDS ORDERED: ESCI10 PO (11:34)
[2020-06-11] MEDS ORDERED: FERSU300 PO (11:34)
[2020-06-11] MEDS ORDERED: FURO20 PO (11:35)
[2020-06-11] MEDS ORDERED: FLUT1DIS5 INH (11:35)
[2020-06-11] MEDS ORDERED: HUMULIN 70100 UNIT/4 SC (11:36)
[2020-06-11] MEDS ORDERED: METO25 PO (11:37)
[2020-06-11] MEDS ORDERED: METO25ER PO (11:37)
[2020-06-11] MEDS ORDERED: LISI5 PO (11:37)
[2020-06-11] MEDS ORDERED: OMEP20ER PO (11:38)
[2020-06-11] MEDS ORDERED: POTA10T PO (11:38)
[2020-06-11] MEDS ORDERED: NITR.4SL SL (11:38)
[2020-06-11] MEDS ORDERED: Nitroglycerin1 EAC3 TOP (11:38)
[2020-06-11] MEDS ORDERED: RANO500T PO (11:38)
[2020-06-11] MEDS ORDERED: Ropinirole HCl0.5 MG PO (11:39)
[2020-06-11] MEDS ORDERED: ROSU5 PO (11:39)
[2020-06-11] MEDS ORDERED: ROPINIROLE HCL3 M1 PO (11:39)
[2020-06-11] MEDS ORDERED: WARF5 PO (11:40)
[2020-06-11] MEDS ORDERED: TORSE20 PO (11:40)
[2020-06-11] MEDS ORDERED: ALDACTONE25 MG PO (11:40)
[2020-06-11] MEDS ORDERED: TRAZ100 PO (11:40)
--- NOTE | 2020-06-11 15:04 | NUR ---
PHYSICIAN UPDATED PHYSICIAN UPDATED OF PT'S INCREASE IN PAIN LEVEL. PHYSICIAN TO PUT IN NEW MEDICATION ORDERS.
--- NOTE | 2020-06-11 18:47 | NUR ---
SHIFT SUMMARY PT ALERT AND ORIENTED X 4. HR STABLE. BP STABLE. OXYGEN SATURATION MAINTAINED ABOVE 92% ON 2 L OF OXYGEN VIA NC AND CPAP. WOUNDS CLEANED AND DRESSED WITH NONADHERENT DRESSING AND GAUZE. PT ASSISTED IN Q 2 TURNS AND FOR COMFORT. PT REPORTS INCREASE IN PAIN. PHYSICIAN NOTIFIED, MEDICATIONS ORDERED AND GIVEN PER EMAR. PT REPORTS RELIEF. PT'S REQUESTS PHONE CONVERSATION FOR UPDATE WITH PHYSICIAN. PHYSICIAN SPOKE WITH ON PHONE FOR UPDATE. DEPENDS IN PLACE FOR INCONTINENCE AT TIMES. NO CP OR PRESSURE REPORTED. WILL CONTINUE TO MONITOR UNTIL REPORT GIVEN TO NIGHTSHIFT RN.
[2020-06-12 04:14] LABS: International Normalized Ratio 3.62
--- NOTE | 2020-06-12 05:10 | NUR ---
UPDATE PATIENT ONLY ABLE TO VOID 100 ML'S. BLADDER SCAN RESULTS WITH [address] LAI NOTIFIED OF MINIMAL OUTPUT.
[2020-06-12 05:41] LABS: Hematocrit 27.4 % (37.0-53.0); Hemoglobin 8.5 g/dL (13.5-17.5)
--- NOTE | 2020-06-12 07:41 | NUR ---
SHIFT SUMMARY PATIENT PLEASENT AND COOPERATIVE THROUGHOUT THE NIGHT. PATIENT RIGHT SIDE VERY PAINFUL THROUGHOUT THE NIGHT. PATIENT MEDICATED FOR PAIN PER EMAR. PATIENT'S SKIN TEARS CONTINUED TO OOZE THROUGHOUT THE NIGHT. BANDAGES CHANGED EVERY COUPLE OF HOURS DUE TO BLEEDING THROUGH. DR MICHAEL NOTIFIED THIS MORNING AND AN H&H WAS ORDERED. THERE WAS ONE POINT WHERE PATIENT THOUGHOUT SOMEONE HAD COME IN AND NOCKED ALL OF HIS BELONINGS OFF HIS TRAY TABLE. ALL BELONGINGS WERE STILL ON TABLE AT THAT TIME, PATIENT REORIENTED AND IS UNSURE WHY HE THOUGHT THAT. PATIENT APPEARED TO NAP WELL ON AND OFF THROUGHOUT THE NIGHT. REPORT GIVEN TO ONCOMING RN.
[2020-06-12 08:37] LABS: Hematocrit 27.4 % (37.0-53.0); Hemoglobin 8.5 g/dL (13.5-17.5); Mean Corpuscular HGB 27.3 pg (26.0-34.0); Mean Corpuscular Volume 88 fL (80-100); Mean Platelet Volume 9.5 fL (9.1-12.4); NRBC ABSOLUTE 0.02 K/mm3 (0.00-0.02); NRBC Auto 0.2 /100 WBC (0.0-0.2); Platelet Count 119 K/mm3 (150-400); RDW Coefficient Variation 17.5 % (11.7-14.2); RDW Standard Deviation 56.1 fL (35.1-46.3); Red Blood Cell Count 3.11 M/mm3 (4.30-5.90); White Blood Cell Count 9.09 K/mm3 (4.00-11.30)
[2020-06-12 08:47] LABS: Magnesium, Blood 2.5 mg/dL (1.6-2.4)
[2020-06-12 09:00] LABS: Anion Gap 9 mmol/L (6-16); Blood Urea Nitrogen 62 mg/dL (8-24); CO2, Blood 23 mmol/L (21-32); Calcium, Blood 8.4 mg/dL (8.5-10.1); Chloride, Blood 95 mmol/L (98-108); Glomerular Filtration Rate 29 (60-); Glucose, Blood 236 mg/dL (70-99); Phosphorus, Blood 5.4 mg/dL (2.5-4.9); Sodium, Blood 127 mmol/L (136-145)
[2020-06-12 09:08] LABS: BASOPHILS PERCENT MAN 0 % (0-2); EOSINOPHILS ABSOLUTE MAN 0.09 K/mm3 (0.00-0.68); EOSINOPHILS PERCENT MAN 1 % (0-6); LYMPHOCYTES ABSOLUTE MAN 0.18 K/mm3 (0.84-5.20); LYMPHOCYTES PERCENT MAN 2 % (21-46); MONOCYTES ABSOLUTE MAN 1.09 K/mm3 (0.16-1.47); MONOCYTES PERCENT MAN 12 % (4-13); NEUTROPHILS ABSOLUTE MAN 7.72 K/mm3 (1.96-9.15); SEG NEUTROPHILS PERCENT MAN 85 % (41-73); TOTAL CELLS COUNTED 100
--- NOTE | 2020-06-12 11:41 | NUR ---
PHYSICIAN UPDATED PHYSICIAN INFORMED OF SWALLOW EVAL RESULTS, SPEECH THERAPIST RECOMMENDS NPO AT THIS TIME D/T ASPIRATION RISK. PHYSICIAN AWARE.
[2020-06-12 14:34] LABS: Bun/Creatinine Ratio 28.5 (12.0-20.0); Calcium, Blood 8.5 mg/dL (8.5-10.1); Creatinine, Blood 2.39 mg/dL (0.60-1.20)
[2020-06-12 14:39] LABS: Potassium, Blood 6.2 mmol/L (3.5-5.5)
[2020-06-12 18:44] LABS: Bun/Creatinine Ratio 28.4 (12.0-20.0); Calcium, Blood 8.8 mg/dL (8.5-10.1); Creatinine, Blood 2.43 mg/dL (0.60-1.20)
--- NOTE | 2020-06-12 19:00 | NUR ---
SHIFT SUMMARY PT ALERT AND ORIENTED X 4. CONFUSED AT TIMES, ABLE TO REDIRECT. HR STABLE. BP STABLE. PT REPORTS NO CP OR PRESSURE. OXYGEN DEMANDS INCREASED T/O SHIFT. PT TOLERATING BIPAP WITH 5 L BLEED IN, WITH OXYGEN SATURATION MAINTAINED AT 90%. HIGH FLOW NASAL CANULA AT BEDSIDE AT 9-12 L. ORAL CARE PROVIDED Q 4 D/T PT BEING NPO. PHYSICIAN AWARE OF SWALLOW EVAL AND PT'S NPO STATUS. PHYSICIAN AWARE OF PT'S CRITICAL LABS, SEE CHART. PT TURNED Q 2. WOUND CARE PROVIDED NEEDED. WILL CONTINUE TO MONITOR UNTIL REPORT GIVEN TO ELLE JONES.
[2020-06-12 23:02] LABS: Bun/Creatinine Ratio 28.5 (12.0-20.0); Calcium, Blood 8.7 mg/dL (8.5-10.1); Creatinine, Blood 2.49 mg/dL (0.60-1.20); Potassium, Blood 6.1 mmol/L (3.5-5.5)
--- NOTE | 2020-06-12 23:37 | NUR ---
UPDATE DR ARRIAZA NOTIFIED OF PATIENTS POTASSIUM LEVEL OF 6.1. DR ARRIAZA PLACING ORDERS. NO D50 TO BE GIVEN DUE TO PATIENT'S BLOOD SUGAR BEING [address] ARRIAZA NOTIFIED THAT PATIENT IS LETHARGIC AT THIS TIME. BIPAP IN PLACE. PATIENT RESPONSIVE TO PAINFUL STIMULI AT THIS TIME.
[2020-06-13 02:37] LABS: BASOPHILS ABSOLUTE AUTO 0.01 K/mm3 (0.00-0.23); BASOPHILS PERCENT AUTO 0 % (0-2); EOSINOPHILS PERCENT AUTO 0 % (0-6); Hematocrit 25.2 % (37.0-53.0); Hemoglobin 7.9 g/dL (13.5-17.5); IMMATURE GRAN ABSOLUTE AUTO 0.67 K/mm3 (0.00-0.10); IMMATURE GRAN PERCENT AUTO 7 % (0-1); LYMPHOCYTES ABSOLUTE AUTO 0.16 K/mm3 (0.84-5.20); LYMPHOCYTES PERCENT AUTO 2 % (21-46); MONOCYTES ABSOLUTE AUTO 1.31 K/mm3 (0.16-1.47); MONOCYTES PERCENT AUTO 13 % (4-13); Mean Corpuscular HGB 26.8 pg (26.0-34.0); Mean Corpuscular HGB Conc 31.3 g/dL (31.5-36.5); Mean Corpuscular Volume 85 fL (80-100); Mean Platelet Volume 9.3 fL (9.1-12.4); NEUTROPHILS ABSOLUTE AUTO 7.94 K/mm3 (1.96-9.15); NEUTROPHILS PERCENT AUTO 79 % (41-73); NRBC ABSOLUTE 0.02 K/mm3 (0.00-0.02); NRBC Auto 0.2 /100 WBC (0.0-0.2); Platelet Count 104 K/mm3 (150-400); RDW Coefficient Variation 17.7 % (11.7-14.2); RDW Standard Deviation 54.4 fL (35.1-46.3); Red Blood Cell Count 2.95 M/mm3 (4.30-5.90); White Blood Cell Count 10.09 K/mm3 (4.00-11.30)
[2020-06-13 02:51] LABS: International Normalized Ratio 2.72; Prothrombin Time Results 27.5 Sec (9.7-11.5)
[2020-06-13 02:55] LABS: Albumin, Blood 2.9 g/dL (3.4-5.0); Anion Gap 9 mmol/L (6-16); BAND PERCENT MAN 5 % (0-8); BASOPHILS PERCENT MAN 0 % (0-2); Blood Urea Nitrogen 73 mg/dL (8-24); Bun/Creatinine Ratio 29.3 (12.0-20.0); CO2, Blood 23 mmol/L (21-32); Calcium, Blood 8.7 mg/dL (8.5-10.1); Chloride, Blood 95 mmol/L (98-108); Creatinine, Blood 2.49 mg/dL (0.60-1.20); EOSINOPHILS PERCENT MAN 0 % (0-6); Glomerular Filtration Rate 26 (60-); Glucose, Blood 267 mg/dL (70-99); LYMPHOCYTES PERCENT MAN 3 % (21-46); METAMYELOCYTE PERCENT MAN 2 % (0-0); MONOCYTES PERCENT MAN 8 % (4-13); Magnesium, Blood 2.5 mg/dL (1.6-2.4); NEUTROPHILS ABSOLUTE MAN 8.77 K/mm3 (1.96-9.15); Phosphorus, Blood 5.1 mg/dL (2.5-4.9); Potassium, Blood 5.9 mmol/L (3.5-5.5); SEG NEUTROPHILS PERCENT MAN 82 % (41-73); Sodium, Blood 127 mmol/L (136-145); TOTAL CELLS COUNTED 100
--- NOTE | 2020-06-13 06:28 | NUR ---
UPDATE DR LAI NOTIFIED PATIENT'S POTASSIUM LEVEL WAS 5.9. ORDER RECIEVED. DR LAI ALSO NOTIFIED OF PATIENT'S CURRENT BLOOD SUGAR RESULTS. DR LAI NOTIFIED OF PATIENT'S HGB RESULTS THIS MORNING WELL.
--- NOTE | 2020-06-13 07:33 | NUR ---
SHIFT SUMMARY PATIENT STARTED OUT THE SHIFT VERY DROWSY AND APPEARED CONFUSED HOWEVER PATIENT HAS BECOME MUCH MORE ALERT AND INTERACTIVE WITH STAFF THIS MORNING. PATIENT ANWERING QUESTIONS WELL AT THIS TIME. PATIENT PLEASENT AND COOPERATIVE. PATIENT TURNED AND ORAL CARE PROVIDED. WOUND CARE DONE PRN THROUGHOUT THE SHIFT. PATIENT REMAINED ON BIPAP WITH A 3L BLEED IN THROUGHOUT THE NIGHT. PATIENT ON 12L VIA HIGH FLOW WHEN OFF BIPAP FOR ORAL CARE. VITAL SIGNS CHARTED. REPORT GIVEN TO ONCOMING RN.
[2020-06-13 12:15] LABS: Bun/Creatinine Ratio 30.4 (12.0-20.0); Calcium, Blood 8.8 mg/dL (8.5-10.1); Creatinine, Blood 2.47 mg/dL (0.60-1.20)
[2020-06-13 18:08] LABS: Bun/Creatinine Ratio 32.5 (12.0-20.0); Calcium, Blood 8.9 mg/dL (8.5-10.1); Creatinine, Blood 2.37 mg/dL (0.60-1.20); Potassium, Blood 6.1 mmol/L (3.5-5.5)
--- NOTE | 2020-06-13 19:00 | NUR ---
SHIFT SUMMARY PT ALERT AND ORIENTED X 4. FORGETFUL AT TIMES. ABLE TO REDIRECT AND REORIENT. PT TURNED Q 2 HRS AND NEEDED. PT INCONTINENT AT TIMES. DEPENDS IN PLACE. PT ABLE TO USE URINAL AT TIMES. WOUND CARE PROVIDED NEEDED. HR STABLE. BP STABLE. CRITICAL LAB VALUES, SEE EHR. PHYSICIAN NOTIFIED. OXYGEN SATURATION MAINTAINED ABOVE 92% ON 5 L OF OXYGEN VIA HIGH FLOW NC AND BIPAP WITH 4 L BLEED IN. WILL CONTINUE TO MONITOR UNTIL REPORT GIVEN TO NIGHTSHIFT RN.
--- NOTE | 2020-06-14 00:57 | NUR ---
UPDATE DR ARRIAZA NOTIFIED THAT PATIENT'S HEART RATE IS AFIB AND HAS BEEN TRENDING IN THE 120'S THROUGHOUT THE SHIFT SO FAR. DR ARRIAZA ALSO NOTIFIED OF PATIENT'S BLOOD SUGAR OF 323. ORDERS RECEIVED.
[2020-06-14 04:10] LABS: BASOPHILS ABSOLUTE AUTO 0.01 K/mm3 (0.00-0.23); BASOPHILS PERCENT AUTO 0 % (0-2); EOSINOPHILS PERCENT AUTO 0 % (0-6); Hemoglobin 7.6 g/dL (13.5-17.5); IMMATURE GRAN ABSOLUTE AUTO 0.65 K/mm3 (0.00-0.10); IMMATURE GRAN PERCENT AUTO 8 % (0-1); LYMPHOCYTES ABSOLUTE AUTO 0.17 K/mm3 (0.84-5.20); LYMPHOCYTES PERCENT AUTO 2 % (21-46); MONOCYTES ABSOLUTE AUTO 0.71 K/mm3 (0.16-1.47); MONOCYTES PERCENT AUTO 9 % (4-13); Mean Corpuscular HGB Conc 31.7 g/dL (31.5-36.5); Mean Corpuscular Volume 85 fL (80-100); Mean Platelet Volume 9.5 fL (9.1-12.4); NEUTROPHILS ABSOLUTE AUTO 6.26 K/mm3 (1.96-9.15); NEUTROPHILS PERCENT AUTO 80 % (41-73); Platelet Count 101 K/mm3 (150-400); RDW Coefficient Variation 17.5 % (11.7-14.2); RDW Standard Deviation 54.4 fL (35.1-46.3); Red Blood Cell Count 2.81 M/mm3 (4.30-5.90)
[2020-06-14 04:26] LABS: Magnesium, Blood 2.7 mg/dL (1.6-2.4)
[2020-06-14 04:29] LABS: BASOPHILS PERCENT MAN 0 % (0-2); EOSINOPHILS PERCENT MAN 0 % (0-6); LYMPHOCYTES ABSOLUTE MAN 0.31 K/mm3 (0.84-5.20); LYMPHOCYTES PERCENT MAN 4 % (21-46); METAMYELOCYTE ABSOLUTE MAN 0.23 K/mm3 (0.00-0.00); METAMYELOCYTE PERCENT MAN 3 % (0-0); MONOCYTES ABSOLUTE MAN 0.39 K/mm3 (0.16-1.47); MONOCYTES PERCENT MAN 5 % (4-13); MYELOCYTE ABSOLUTE MAN 0.15 K/mm3 (0.00-0.00); MYELOCYTE PERCENT MAN 2 % (0-0); SEG NEUTROPHILS PERCENT MAN 86 % (41-73); TOTAL CELLS COUNTED 100
[2020-06-14 04:34] LABS: Albumin, Blood 2.8 g/dL (3.4-5.0); Anion Gap 10 mmol/L (6-16); Blood Urea Nitrogen 82 mg/dL (8-24); Bun/Creatinine Ratio 35.3 (12.0-20.0); CO2, Blood 23 mmol/L (21-32); Calcium, Blood 8.8 mg/dL (8.5-10.1); Chloride, Blood 95 mmol/L (98-108); Creatinine, Blood 2.32 mg/dL (0.60-1.20); Glomerular Filtration Rate 29 (60-); Glucose, Blood 351 mg/dL (70-99); Phosphorus, Blood 4.5 mg/dL (2.5-4.9); Potassium, Blood 6.2 mmol/L (3.5-5.5); Sodium, Blood 128 mmol/L (136-145)
[2020-06-14 04:43] LABS: International Normalized Ratio 2.27; Prothrombin Time Results 23.2 Sec (9.7-11.5)
--- NOTE | 2020-06-14 05:18 | NUR ---
UPDATE DR ARRIAZA NOTIFIED OF POTASSIUM OF 6.2 AND OF THE HGB OF 7.6 THIS MORNING. WILL RECHECK A POTASSIUM AT 1300 TODAY. NO FURTHER ORDERS RECEIVED.
--- NOTE | 2020-06-14 06:47 | NUR ---
SHIFT SUMMARY PATIENT APPEARS TO BE ALERT AND ORIENTED, PATIENT PLEASENT AND COOPERATIVE. PATIENT APPEARED TO SLEEP WELL THROUGHOUT MOST OF THE NIGHT. PATIENT REPOSITIONED FREQUENTLY, ORAL CARE PROVIDED. PATIENT WAS ON HIS BIPAP THROUGHOUT MOST OF THE NIGHT WITH A 3L BLEED IN, PATIENT ON 4L O2 WHEN OFF BIPAP. WOUND CARE PROVIDED PRN. WILL CONTINUE CURRENT PLAN OF CARE AND REPORT TO ONCOMING RN.
--- NOTE | 2020-06-14 14:53 | NUR ---
Spiritual care visit conducted. Patient is lying in bed and asleep. Patient's spouse, Manuela is bedside. She tells me that she thinks that patient is declining and is hoping that patient can either regain enough strength to come home or that he not make it at all. She talks about how absolutely horrible it was for Mr. Mccain when he had to go to a rehab. facility and that the stay there was something that patient has very clearly stated that he would never want to do again. Manuela is tearful at times and shares about the other members of her family that are having very serious health battles and that the family is being stretched really thin. I normalize Manuela's experience and provide pastoral herb counselor and prayer (patient was able to nod his head affirmingly when asked if saying a prayer would be ok). Manuela responds well and invites me to come again and visit with patient. I will continue to remain available to patient and family.
[2020-06-14 16:40] LABS: Bun/Creatinine Ratio 38.3 (12.0-20.0); Creatinine, Blood 2.14 mg/dL (0.60-1.20); Potassium, Blood 5.5 mmol/L (3.5-5.5)
--- NOTE | 2020-06-14 17:23 | NUR ---
SHIFT SUMMARY; ASSUMED CARE AT 0700, REPORT FROM TICO. ON M SERIES BIPAP ON WHEN ASSUMING CARE. WAKES TO VERBAL STIMULI. ORIENTED X3. EXCORIATIONS THROUGHOUT BODY, SKIN TEARS BILATERALLY TO FOREARMS, DRESSINGS IN PLACE CLEAN/DRY/INTACT. EDEMA TO ABDOMEN, BILATERAL ARMS AND HANDS. REDISH BRUISING NOTED TO RIGHT FLANK AREA, ASSESSED BY DR. HASSAN. LEFT ARM SWELLING WITH WARMTH IN LEFT ELBOW AREA, ASSESED BY DR. HASSAN. POWERGLIDE IN PLACE INFUSING SODIUM BICARB IN D5, INFUSING AT 50ML/HR. INSULIN COVERAGE NEEDED THROUGHOUT SHIFT. SMALL BREAKS GIVEN FROM CPAP, UNABLE TO TOLERATE MORE THAN 10 MINS OFF CPAP. ADDITIONAL LASIX ORDERED AND GIVEN FOR SOB. ORAL CARE Q4 HOURS WITH REPOSITIONING Q2. SPOUSE AT BEDSIDE IN AFTERNOON. WILL CONTINUE TO MONITOR AND TREAT UNTIL CHANGE OF SHIFT.
[2020-06-14 18:36] LABS: Hemoglobin 8.2 g/dL (13.5-17.5)
[2020-06-14 19:00] LABS: Bun/Creatinine Ratio 38.2 (12.0-20.0); Creatinine, Blood 2.12 mg/dL (0.60-1.20); Potassium, Blood 5.2 mmol/L (3.5-5.5)
--- NOTE | 2020-06-15 05:21 | NUR ---
SHIFT SUMMARY PT RESTED WELL THROUGH THE NIGHT. ALERT AND ORIENTED - ABLE TO MAKE NEEDS KNOWN. SATS >90% ON CPAP WITH 3LNC BLEED IN. TELE AFIB - RATE IMPROVED WITH METOPROLOL PUSH - SEE EMAR. VOIDING TO URINAL, NO BM. STRICT NPO PER SPEECH THERAPY. NA BICARB INFUSING NOW. NO C/O PAIN, NO CHEST PAIN. VSS. CALL LIGHT WITHIN REACH, BED IN LOWEST POSITION. WILL CONTINUE TO MONITOR.
[2020-06-15 05:57] LABS: BASOPHILS ABSOLUTE AUTO 0.01 K/mm3 (0.00-0.23); BASOPHILS PERCENT AUTO 0 % (0-2); EOSINOPHILS ABSOLUTE AUTO 0.02 K/mm3 (0.00-0.68); EOSINOPHILS PERCENT AUTO 0 % (0-6); Hematocrit 25.3 % (37.0-53.0); IMMATURE GRAN ABSOLUTE AUTO 0.63 K/mm3 (0.00-0.10); IMMATURE GRAN PERCENT AUTO 8 % (0-1); LYMPHOCYTES ABSOLUTE AUTO 0.39 K/mm3 (0.84-5.20); LYMPHOCYTES PERCENT AUTO 5 % (21-46); MONOCYTES ABSOLUTE AUTO 1.07 K/mm3 (0.16-1.47); MONOCYTES PERCENT AUTO 13 % (4-13); Mean Corpuscular HGB 26.8 pg (26.0-34.0); Mean Corpuscular HGB Conc 31.6 g/dL (31.5-36.5); Mean Corpuscular Volume 85 fL (80-100); Mean Platelet Volume 9.1 fL (9.1-12.4); NEUTROPHILS ABSOLUTE AUTO 6.27 K/mm3 (1.96-9.15); NEUTROPHILS PERCENT AUTO 75 % (41-73); Platelet Count 117 K/mm3 (150-400); RDW Coefficient Variation 17.6 % (11.7-14.2); RDW Standard Deviation 53.8 fL (35.1-46.3); Red Blood Cell Count 2.99 M/mm3 (4.30-5.90); White Blood Cell Count 8.39 K/mm3 (4.00-11.30)
[2020-06-15 06:10] LABS: Prothrombin Time Results 20.6 Sec (9.7-11.5)
[2020-06-15 06:18] LABS: Bun/Creatinine Ratio 42.3 (12.0-20.0); Calcium, Blood 8.9 mg/dL (8.5-10.1); Creatinine, Blood 1.89 mg/dL (0.60-1.20); Potassium, Blood 5.1 mmol/L (3.5-5.5)
[2020-06-15 06:27] LABS: BASOPHILS PERCENT MAN 0 % (0-2); EOSINOPHILS PERCENT MAN 0 % (0-6); LYMPHOCYTES ABSOLUTE MAN 0.41 K/mm3 (0.84-5.20); LYMPHOCYTES PERCENT MAN 5 % (21-46); METAMYELOCYTE ABSOLUTE MAN 0.08 K/mm3 (0.00-0.00); METAMYELOCYTE PERCENT MAN 1 % (0-0); MONOCYTES ABSOLUTE MAN 0.16 K/mm3 (0.16-1.47); MONOCYTES PERCENT MAN 2 % (4-13); NEUTROPHILS ABSOLUTE MAN 7.71 K/mm3 (1.96-9.15); SEG NEUTROPHILS PERCENT MAN 92 % (41-73); TOTAL CELLS COUNTED 100
--- NOTE | 2020-06-15 11:33 | NUR ---
Spiritual care visit conducted. Patient is sleepy but is able to talk briefly. Patient says that his plan is to see if he is able to improve in a short time frame and if not then if he doesn't then he would be too exhausted to "keep this up." I then provide prayer and patient falls asleep. I will continue to remain available to patient and family.
--- NOTE | 2020-06-15 18:27 | NUR ---
PT SUMMARY: PT TOLERATING 4.5L OF O2 VIA HI CHERELLE NASAL CANNULA TODAY PT MOSTLY OFF OF CPAP FOR THE SHIFT, STILL HAS SOB WITH WHEEZING WORSENS WITH EXERTION LIKE TURNIN GIN BED. VITALS HRR AFIB 100-140'S PT STARTED ON IV METOPROLOL 5MG Q6, BP SYSTOLIC 130-150'S, SATS ABOVE 90% ON 4.5 L OF HIFLO, RR TO RANGING UP TO 25-28, AFEBRILE. PT REMAINED NPO FAILED SWALLOW EVAL AGAIN THIS AM WILL RE-EVAL IN AM, PT STARTED ON CLINIMIX AT 50MLS/HR. ORAL CARE/SUCTION SWABS PROVIDED. PT STILL HAS WEEPING EDEMA ON BOTH ARMS THAT IS LESSEN TODAY, LASIX STARTED TODAY, PT HAS BEEN USING URINAL TO VOID. WAS IN TO VISIT TODAY WAS ABLE TO TALK TO DR HASSAN TO GET UPDATE REGARDING POC. PT DENIES ANY PAIN FOR THE SHIFT, REPOSITIONED FOR THE SHIFT, ABLE TO MAKE NEEDS KNOWN, WILL MONITOR
[2020-06-16 04:05] LABS: BASOPHILS ABSOLUTE AUTO 0.02 K/mm3 (0.00-0.23); BASOPHILS PERCENT AUTO 0 % (0-2); EOSINOPHILS ABSOLUTE AUTO 0.01 K/mm3 (0.00-0.68); EOSINOPHILS PERCENT AUTO 0 % (0-6); Hematocrit 27.9 % (37.0-53.0); Hemoglobin 8.7 g/dL (13.5-17.5); IMMATURE GRAN ABSOLUTE AUTO 0.85 K/mm3 (0.00-0.10); IMMATURE GRAN PERCENT AUTO 9 % (0-1); LYMPHOCYTES ABSOLUTE AUTO 0.61 K/mm3 (0.84-5.20); LYMPHOCYTES PERCENT AUTO 7 % (21-46); MONOCYTES ABSOLUTE AUTO 1.11 K/mm3 (0.16-1.47); MONOCYTES PERCENT AUTO 12 % (4-13); Mean Corpuscular HGB Conc 31.2 g/dL (31.5-36.5); Mean Corpuscular Volume 87 fL (80-100); Mean Platelet Volume 9.9 fL (9.1-12.4); NEUTROPHILS ABSOLUTE AUTO 6.52 K/mm3 (1.96-9.15); NEUTROPHILS PERCENT AUTO 72 % (41-73); NRBC ABSOLUTE 0.03 K/mm3 (0.00-0.02); NRBC Auto 0.3 /100 WBC (0.0-0.2); Platelet Count 139 K/mm3 (150-400); RDW Coefficient Variation 17.7 % (11.7-14.2); RDW Standard Deviation 55.4 fL (35.1-46.3); Red Blood Cell Count 3.22 M/mm3 (4.30-5.90); White Blood Cell Count 9.12 K/mm3 (4.00-11.30)
[2020-06-16 04:22] LABS: Bun/Creatinine Ratio 48.2 (12.0-20.0); Calcium, Blood 9.2 mg/dL (8.5-10.1); Creatinine, Blood 1.68 mg/dL (0.60-1.20); Potassium, Blood 5.2 mmol/L (3.5-5.5)
[2020-06-16 04:35] LABS: BAND PERCENT MAN 3 % (0-8); BASOPHILS PERCENT MAN 0 % (0-2); EOSINOPHILS PERCENT MAN 0 % (0-6); LYMPHOCYTES ABSOLUTE MAN 0.82 K/mm3 (0.84-5.20); LYMPHOCYTES PERCENT MAN 9 % (21-46); METAMYELOCYTE ABSOLUTE MAN 0.18 K/mm3 (0.00-0.00); METAMYELOCYTE PERCENT MAN 2 % (0-0); MONOCYTES ABSOLUTE MAN 0.72 K/mm3 (0.16-1.47); MONOCYTES PERCENT MAN 8 % (4-13); MYELOCYTE ABSOLUTE MAN 0.27 K/mm3 (0.00-0.00); MYELOCYTE PERCENT MAN 3 % (0-0); NEUTROPHILS ABSOLUTE MAN 7.11 K/mm3 (1.96-9.15); SEG NEUTROPHILS PERCENT MAN 75 % (41-73); TOTAL CELLS COUNTED 100
--- NOTE | 2020-06-16 05:04 | NUR ---
shift summary pt rested well through night - alert and oriented, able to make needs known. pt did c/o increase in shortness of breath - breathing treatments as needed - see emar. cpap at night with intermittent breaks, wearing 5lnc when not on cpap. tele - afib with rate running 110's-130's - iv metoprolol given per emar. voiding to urinal with assistance, no bm. q2 turns and bed change as needed. weeping from arms, disposable pads under arms. no c/o chest pain, vss. call light within reach, bed in lowest position. will continue to monitor.
--- NOTE | 2020-06-16 15:22 | NUR ---
Spiritual care visit conducted. Patient is sitting up in bed and has his eyes closed. Patient's spouse, Manuela, is bedside. She tells me about the small gains that patient has had and also that frustration the patient has had because the gains are so small. Manuela talks about how patient has decided to hold off on comfort care and make another run at life. Manuela states that even though patient has made gains he has a long ways to go before he can come home because she can't take care of him if he can't walk at all. She also states that whatever his wishes are, she is for him no matter what. Patient begins to fall asleep so I simple provide prayer and let him return to sleeping. I will continue to remain available to patient and family.
--- NOTE | 2020-06-16 18:29 | NUR ---
PT SUMMARY: PT TITRATED DOWN TO 4L OF O2 VIA HIFLO, PT TOLERATING WELL SATS ABOVE 95%, PT STILL GETS SOB/WHEEZE/ WITH EXERTION BREATHING TX PER RT, BIPAP PRN AT BEDSIDE PT USES WHEN SLEEPING OR REQUESTED. PT FAILED SWALLOW EVAL AGAIN THIS AM, PT WILL NEED SWALLOW TEST PER ST WHEN PT IS NOT IN RESPI DISTRESS ANYMORE. PT DENIES ANY PAIN FOR THE SHIFT, HRR REMAINS AFIB STILL INCREASES WITH EXERTION METOPROLOL 5MG IV SWITCHED TO Q4HRS SCHEDULED. BP STABLE. AFEBRILE. PT HAS BEEN USING URINAL FOR VOIDING REPOSITIONED IN BED FOR COMFORT, PT RECEIVED A BED ABTH THIS AM, UNABLE TO TOLERATED ROLLING AND TURNING IN BED PT GETS SOB. CLINIMIX SWITCHED TO TPN WAS STARTED AT 50MLS/HR FOR AN HOUR THEN INCREASED TO 98MLS/HR A GOAL RATE, PT TOLERATING WELL. PT REMAINS ON LASIX, ADEQUATE AMOUNT OF URINE OUTPUT RECORDED FOR THE SHIFT. PT WAS ABLE TO VISIT DURING VISITING HOURS, REPORTED THAT PT HAS BEEN DESATING TO LOW 80'S EVEN ON BIPAP WITH 3L OF O2 BLEED CORDS AND TUBINGS WERE CHECKED NO ISSUES FOUND PT WAS TITRATED BACK UP TO 4L PER RT PT WENT UP TO 90% OF O2, THEN ADMITTED WHILE ASSESSING THE PT THAT SHE HAD THE PT TOOK SIPS OF WATER TWICE PRIOR TO THIS ISSUE, WAS EDUCATED ABOUT PT'S STRICT NPO DIET DUE TO DYSPHAGIA THAT COULD POSSIBLY LEAD TO ASPIRATION PNA, WAS ALSO INFORMED PRIOR TO THIS THAT THE PT FAILED SWALLOW EVAL TEST THIS AM THATS WHY PT IS TO START ON TPN MAINTENANCE, STATED SHE DIDN'T DO IT ON PURPOSE, THIS ISSUE WAS BROUGHT IN TO THE CHARGE NURSE AND WAS ABLE TO TALK TO THE WELL ABOUT SETTING LIMITS IF THIS IS TO HAPPEN AGAIN. PT NOW IN BED RESTING WITH CALL LIGHTS IN REACH. WILL REPORT TO ONCOMING SHIFT
[2020-06-17 04:36] LABS: Albumin, Blood 2.9 g/dL (3.4-5.0); Anion Gap 7 mmol/L (6-16); Blood Urea Nitrogen 86 mg/dL (8-24); CO2, Blood 34 mmol/L (21-32); Calcium, Blood 9.1 mg/dL (8.5-10.1); Chloride, Blood 95 mmol/L (98-108); Creatinine, Blood 1.51 mg/dL (0.60-1.20); Glomerular Filtration Rate 47 (60-); Glucose, Blood 313 mg/dL (70-99); Magnesium, Blood 2.4 mg/dL (1.6-2.4); Phosphorus, Blood 5.1 mg/dL (2.5-4.9); Potassium, Blood 4.4 mmol/L (3.5-5.5); Sodium, Blood 136 mmol/L (136-145); Triglycerides 93 mg/dL (30-160)
--- NOTE | 2020-06-17 05:36 | NUR ---
SHIFT SUMMARY PATIENT PLEASENT AND COOPERATIVE THROUGHOUT THE NIGHT. PATIENT ABLE TO MAKE NEEDS KNOWN. PATIENT ON THE BIPAP FOR MOST OF THE NIGHT AND ONLY ABLE TO TOLERATE BEING OFF THE BIPAP FOR SHORT BREAKS BEFORE BECOMING VERY SHORT OF BREATH, PATIENT ON 8L WHEN OFF BIPAP. PATIENT APPEARS TO BE ALERT AND ORIENTED BUT UNABLE TO REMEMBER CURRENT DATE. PATIENT APPEARS FORGETFUL AT TIMES. PATIENT MEDICATED FOR PAIN PER EMAR. PATIENT CURRENTLY APPEARS TO BE ASLEEP, BIPAP IN PLACE. WILL CONTINUE CURRENT PLAN OF CARE AND REPORT TO ONCOMING RN.
--- NOTE | 2020-06-17 10:00 | NUR ---
SPOKE WITH PHYSICIAN SPOKE WITH PHYSICIAN REGADING DEEP SUCTIONING PER R/T. ORDERS PLACED. SEE EHR.
--- NOTE | 2020-06-17 14:32 | NUR ---
Case conference with ST who attempted visit today and EMR reviewed prior to my visit to pt and in PCU 8. Pt was sound asleep with Bipap on. He appears comfortable and no nonverbal indicators of pain, distress or agitation noted with bipap on. Pt with attends on and no other clothing or blankets. His , Manuela was very guarded intially when I entered the room and seemed robotic in packing and unpacking a small suit case in the room. I asked permission to review my conversation with ST and she was agreeable. I explained that ST was unable to treat pt today because of pt's difficulty with breathing and desire to skip session in favor of putting bipap back on. I reiterated ST's voiced concern that the goal for pt's respiratory status to improve enough that he could tolerate having the modified barium swallow study done is unmet and pt seems to be getting further than meeting that goal than closer to it. I explained reasons for getting the modified barium swallow study and the bariers at this time in a couple different ways. Manuela verbalized understanding. She verbalized that she felt responsible for her 's cont resp compromise or worsening because she gave him water when he asked for it. was tearful and emotional. I explained that his ongoing difficulties were not because of one drink of water and supported her while she cried. She stated he wasn't ready to give up if that was what I was there to ask. I told her I was there to support her and her with their goals and to update her with information regarding his care and some of the challenges. I reviewed s/s of pain and distress to report if noted and talked to her about indicators we look for when pt is asleep or unable to report. She states pt appears very peaceful right now and I agree. When asked if there was anything I could do for her or bring her she stated, "everything I need is in that bed". I updated her on [facility] staff available to her tomorrow and invited her to call us with any questions or needs.
--- NOTE | 2020-06-17 18:04 | NUR ---
SHIFT SUMMARY PT ALERT AND ORIENTED X 4. LETHARGIC AND CONFUSED AT TIMES. ABLE TO RE-DIRECT. WOUND CARE PROVIDED NEEDED. PT TURNED Q 2 HOURS. ORAL CARE PROVIDED Q 4 HRS AND NEEDED FOR COMFORT. TPN RUNNING. BP HYPERTENSIVE AT TIMES. MEDICATION PROVIDED PER EMAR. OXYGEN SATURATION MAINTAINED ABOVE 92% PT CURRENTLY ON 2.5 L BLEED IN THROUGH BIPAP OR 4 L OF OXYGEN VIA NC. HR STABLE. NO CP REPORTED. DEPENDS IN PLACE FOR INCONTINENCE. MEPLEX ON COCCYX FOR PROTECTION. WILL CONTINUE TO MONITOR UNTIL REPORT GIVEN TO NIGHTSHIFT RN.
[2020-06-18 04:22] LABS: Hematocrit 28.7 % (37.0-53.0); Hemoglobin 8.9 g/dL (13.5-17.5); Mean Corpuscular HGB 27.2 pg (26.0-34.0); Mean Corpuscular Volume 88 fL (80-100); Mean Platelet Volume 9.1 fL (9.1-12.4); NRBC ABSOLUTE 0.07 K/mm3 (0.00-0.02); NRBC Auto 0.8 /100 WBC (0.0-0.2); Platelet Count 122 K/mm3 (150-400); RDW Coefficient Variation 17.4 % (11.7-14.2); RDW Standard Deviation 55.6 fL (35.1-46.3); Red Blood Cell Count 3.27 M/mm3 (4.30-5.90); White Blood Cell Count 9.22 K/mm3 (4.00-11.30)
[2020-06-18 04:38] LABS: Albumin, Blood 2.8 g/dL (3.4-5.0); Anion Gap 4 mmol/L (6-16); Blood Urea Nitrogen 80 mg/dL (8-24); CO2, Blood 40 mmol/L (21-32); Calcium, Blood 9.2 mg/dL (8.5-10.1); Chloride, Blood 92 mmol/L (98-108); Creatinine, Blood 1.38 mg/dL (0.60-1.20); Glomerular Filtration Rate 52 (60-); Glucose, Blood 357 mg/dL (70-99); Magnesium, Blood 2.2 mg/dL (1.6-2.4); Phosphorus, Blood 3.3 mg/dL (2.5-4.9); Potassium, Blood 3.6 mmol/L (3.5-5.5); Sodium, Blood 136 mmol/L (136-145)
[2020-06-18 04:51] LABS: BAND PERCENT MAN 4 % (0-8); BASOPHILS PERCENT MAN 0 % (0-2); EOSINOPHILS PERCENT MAN 0 % (0-6); LYMPHOCYTES ABSOLUTE MAN 0.55 K/mm3 (0.84-5.20); LYMPHOCYTES PERCENT MAN 6 % (21-46); MONOCYTES ABSOLUTE MAN 0.92 K/mm3 (0.16-1.47); MONOCYTES PERCENT MAN 10 % (4-13); TOTAL CELLS COUNTED 100
[2020-06-18 04:52] LABS: MYELOCYTE ABSOLUTE MAN 0.18 K/mm3 (0.00-0.00); MYELOCYTE PERCENT MAN 2 % (0-0); NEUTROPHILS ABSOLUTE MAN 7.56 K/mm3 (1.96-9.15); SEG NEUTROPHILS PERCENT MAN 78 % (41-73)
--- NOTE | 2020-06-18 06:36 | NUR ---
BLOOD SUGAR OF 390 DR JUAREZ NOTIFIED OF PATIENTS BLOOD SUGAR OF 390. NO ORDERS RECEIVED AT THIS TIME.
--- NOTE | 2020-06-18 06:51 | NUR ---
SHIFT SUMMARY PATIENT APPEARED ALERT AND ORIENTED THROUGHOUT THE NIGHT BUT FORGETFUL. PATIENT AWAKE MOST OF THE NIGHT BUT DID APPEAR TO BE ABLE TO NAP OCCATIONALLY. PATIENT FREQUENTLY USING THE CALL LIGHT AND IS ABLE TO MAKE NEEDS KNOWN. ORAL CARE DONE FREQUENTLY Q4H AND PER PATIENT REQUEST. PATIENT DECLINED REPOSITIONING SEVERAL TIMES THROUGHOUT THE NIGHT. PPN INFUSING PER ORDERS. PATIENT ON THE BIPAP THROUGHOUT MOST OF THE NIGHT AND IS ONE 3-4L O2 WHEN OFF BIPAP. PATIENT APPEARED TO TOLERATE BEING OFF THE BIPAP FOR APPROX 15-20 MINUTES AT A TIME LAST NIGHT WHICH WAS LONGER THAN THE PREVIOUS NIGHT. PATIENT CURRENTLY AWAKE AND RESTING IN BED. CALL LIGHT IN REACH. WILL CONTINUE CURRENT PLAN OF CARE AND REPORT TO ONCOMING RN.
--- NOTE | 2020-06-18 09:50 | NUR ---
PT LAYING IN BED AWAKE A/O TO SELF, HE IS ON BIPAP, LUNGS ARE COURSE WITH WHEEZING T/O, RESP EVEN AND UNLABORED, WET OCC NONPROD COUGH NOTED, IS ON 3 LITERS WHEN OFF BIPAP, HRIRR, TELE IN PLACE RUNNING AFIB PER MONITOR, SEE STRIP, DEP EDEMA NOTED TO ELBOWS, AND B/L LE, PPP FAINT, CAP REFILL <3 SEC, VS STABLE, AFEBRILE, IV IS POWER GLIDE TO CALLUM SITE IS CLEAR AND PATENT, INFUSING PPN ORDERED, BTX4 HYPO ACTIVE, ABD LARGE ROUND FIRM, NO BM NOTED IN CHART SINCE ADMISSION, VOIDS VIA URINAL, AND ATTENDS IN PLACE, SKIN IS VERY FRAIL, WITH MULTIPLE SKIN TEARS, TERE, CALL LIGHT IN REACH.
--- NOTE | 2020-06-18 16:54 | NUR ---
PT HAS BEEN CHANGED TO COMFORT CARE, AND DAUGHTER ARE HERE. WILL MOVE TO MEDICAL FLOOR WHEN ROOM AVAILABLE. CALL LIGHT IN REACH.
--- NOTE | 2020-06-18 17:57 | NUR ---
PT RESTING COMFORTABLY WITH FAMILY AROUND HIM. CALL LIGHT IN REACH.
--- NOTE | 2020-06-19 06:21 | NUR ---
SHIFT SUMMARY PT IS STABLE IN ROOM. HAS BEEN MEDICATED ONCE FOR PAIN PER EMAR. WANTED TO REPOSITION PT AND PT REFUSED. PT'S STATED THAT SHE WOULD LIKE PRIVACY AND WOULD CALL IF ANYTHING WAS NEEDED. PT ALSO ATTEMPTED TO GET OUT OF BED LAST NIGHT AROUND 0300 AND SET OFF BED ALARM AND EDUCATION WAS PROVIDED TO PT AND , MADE SURE BED ALARM WAS SET WHEN LEAVING ROOM.
--- NOTE | 2020-06-19 09:00 | NUR ---
pt laying in bed awake, states he's doing ok, at bedside, she states they dont need anything, he slept through the night, but did attempt to get up once and the bed alarm went off. will be going home today on hospice. call light in reach.
[2020-06-19] MEDS ORDERED: 8 HOUR ACETAMI650 MG PR (10:29)
[2020-06-19] MEDS ORDERED: ATROPINE SULFATE2 M5 SL (10:31)
[2020-06-19] MEDS ORDERED: Ativan1 MG PO (10:34)
[2020-06-19] MEDS ORDERED: MORP20L SL (10:35)
[2020-06-19] MEDS ORDERED: PROM12.5S PR (10:36)
[2020-06-19] MEDS ORDERED: TRANSDERM-SCOP1 EAC4 TD (10:36)
--- NOTE | 2020-06-19 12:05 | NUR ---
PT LEFT FOR HOME WITH EMT IN ATTENDENCE. FAMILY HAS ALL BELONGINGS. IV WAS REMOVED INTACT.
== END 2020-06-19 12:00 | disposition hospice, home (50) | DRG 682 ==
LOC: ER 05:27 → PCU 08:44
PROVIDERS: Emergency Medicine; Internal Medicine; Nurse Practitioner Acute Care; ADMIT Internal Medicine
PROC: 5A09357 Assistance with Respiratory Ventilation, Less than 24 Consecutive Hours, Continuous Positive Airway Pressure (ICD-10-PCS; principal; 2020-06-15)
DX: N17.9 Acute kidney failure, unspecified (principal); J96.22 Acute and chronic respiratory failure with hypercapnia; I50.23 Acute on chronic systolic (congestive) heart failure; J96.21 Acute and chronic respiratory failure with hypoxia; J69.0 Pneumonitis due to inhalation of food and vomit; I13.0 Hypertensive heart and chronic kidney disease with heart failure and stage 1 through stage 4 chronic kidney disease, or unspecified chronic kidney disease; J44.1 Chronic obstructive pulmonary disease with (acute) exacerbation; E87.1 Hypo-osmolality and hyponatremia; Z51.5 Encounter for palliative care; I25.10 Atherosclerotic heart disease of native coronary artery without angina pectoris; Z66 Do not resuscitate; N18.30 Chronic kidney disease, stage 3 unspecified; E11.22 Type 2 diabetes mellitus with diabetic chronic kidney disease; Z79.4 Long term (current) use of insulin; Z79.01 Long term (current) use of anticoagulants; E66.01 Morbid (severe) obesity due to excess calories; Z68.30 Body mass index [BMI] 30.0-30.9, adult; E86.0 Dehydration; G47.33 Obstructive sleep apnea (adult) (pediatric); I48.91 Unspecified atrial fibrillation; I27.20 Pulmonary hypertension, unspecified; I12.9 Hypertensive chronic kidney disease with stage 1 through stage 4 chronic kidney disease, or unspecified chronic kidney disease; I35.0 Nonrheumatic aortic (valve) stenosis; I07.1 Rheumatic tricuspid insufficiency; D64.9 Anemia, unspecified; F32.9 Major depressive disorder, single episode, unspecified; E87.5 Hyperkalemia; R82.71 Bacteriuria; R13.10 Dysphagia, unspecified; W18.30XA Fall on same level, unspecified, initial encounter; Y93.9 Activity, unspecified; Y92.9 Unspecified place or not applicable
CPT/HCPCS: 36415; 70450; 71045; 71046; 72125; 80048; 80053; 80069; 81001; 82947; 83735; 83880; 84132; 84478; 84484; 85014; 85018; 85025; 85027; 85610; 87070; 87077; 87186; 87205; 92526; 92610; 94640; 94660; 94762; 99285-25; A9270; C1751; J0610; J0696; J1815; J1940; J2060; J3010; J7030; J7040; J7050; J7070